=== PATIENT | male | born 1985 | race Caucasian/White ===

== ENCOUNTER 2017-11-10 08:49 | Inpatient (IN) | payer OTHER ==
[2017-11-10 09:10] VITALS: BMI 27.0
[2017-11-10] MEDS ORDERED: ACETAMINOPHEN 1000 MG/100 ML VIAL (NON FORMULARY) IVPB ONE (09:19)
[2017-11-10] MEDS ORDERED: SODIUM CHLORIDE 0.9% 1000 ML INFUS.BAG IV STA (09:19)
--- NOTE | 2017-11-10 09:38 | PDOC ---
Attending Attestation - [facility] HPI: 11/10/17 10:26 The patient is a 32 year old male with no significant past medical history who presents to the emergency department for evaluation of fever and headache. The patient reports a 5 day history of fever (temperature not taken). The patient reports constant episodes of nausea and moderate headache for 5 days with associated eye pain. The patient describes the eye pain as a constant pressure like sensation. He also reports a 3 day history of emesis, which he describes as a yellow fluid, and mild lower abdominal pain secondary to emesis. He reports taking Tylenol with no alleviation to symptoms. The patient also notes his urine has had a coffee like appearance with a strong odor, but denies pain or burning upon urination. Today, the patient reports diffuse body aches, intermittent episodes of shortness of breath, and persistent numbness around his mouth which prompted him to visit the emergency department for further evaluation. The patient denies any rash, insect bites, or embedded ticks in the last month. The patient denies chest pain, neck pain, changes in vision, recent travel and dizziness. Denies chills, diarrhea, constipation, dysuria, frequency, urgency, and hematuria. Allergies: NKA Social history: No reported cigarette, alcohol, or drug use. - Physicial Exam PE: Vitals: Triage Vital signs reviewed General Appearance: no acute distress, well nourished well developed, Head: Atraumatic, normocephalic Eyes: Pupils equal reactive round, extraocular movement intact Nose: Nares patent bilaterally;no nasal congestion Throat: Posterior oropharynx without erythema, mucous membranes moist, Neck: Supple;No Nuchal rigidity, No meningeal signs. Chest Wall: Nontender Cardiac: Regular rate and rhythm, no murmurs, no rubs, no gallops, Lungs: Clear to auscultation bilateral, good air movement bilaterally, Abdomen: (+)suprapubic tenderness. Soft, nondistended, normal bowel sounds. Extremities: Full range of motion to all extremities, no cyanosis, clubbing, or edema Skin: Warm and dry, no rashes or lesions, no petechiae Psych: normal mood, normal affect - Medical Decision Making The patient is a 32 year old male with no significant past medical history who presents to the emergency department for evaluation of fever and headache. Plan: Labs CT Scan of Head & Stomach IV Antibiotics Medication for fever Case discussed with Dr. Simmons at 13:30. <Kacy Vasquez - Last Filed: 11/10/17 14:21> - Resident Resident Name: Juan Ni - ED Attending Attestation I have performed the following: I have examined & evaluated the patient, The case was reviewed & discussed with the resident, I agree w/resident's findings & plan, Exceptions are as noted - Medical Decision Making Patient with fever body aches 5 days no neck stiffness no meningeal signs on examination Very mild suprapubic tenderness but given unknown etiology a CT abdomen and pelvis was ordered in addition to a head CT given headaches His laboratory analysis is notable for a normal white blood cell count, thrombocytopenia, elevated LFTs and elevated INR and elevated bilirubin His CAT scan demonstrates mild splenomegaly but no other acute findings At this point differential diagnosis includes possible tickborne illness, although no exposures, viral illness such as CMV or mono or other viral illness Given thrombocytopenia and laboratory abnormalities we'll admit to medicine with Dr. Simmons infectious disease consultation for further management. <Adelfo Wray - Last Filed: 11/10/17 16:44> Attestations - Attestations Documentation prepared by Kacy Vasquez, acting as electromedical equipment repairer for Adelfo Wray MD. <Kacy Vasquez - Last Filed: 11/10/17 14:21>
[2017-11-10] MEDS ORDERED: ACETAMINOPHEN INJECTION 100 ML IVPB ONE (09:50)
--- NOTE | 2017-11-10 09:50 | PDOC ---
History of Present Illness - General Chief Complaint: SIRS, Suspected/Possible Stated Complaint: HEADACHE AND FEVER Time Seen by Provider: 11/10/17 09:20 History Source: Patient Exam Limitations: No Limitations - History of Present Illness Initial Comments: 11/10/17 09:59 32m with no pmh presents since Monday with fever, vomiting, headache, anorexia and foul-smelling urine. No sick contact, recent travel, risky sexual behavior. Denies neck pain, diarrhea. Past History - Past Medical History Allergies/Adverse Reactions: Allergies Allergy/AdvReac Type Severity Reaction Status Date / Time No Known Allergies Allergy Verified 04/26/16 10:11 Home Medications: Ambulatory Orders NK [No Known Home Medication] 04/26/16 COPD: No - Immunization History Immunization Up to Date: No (UNKNOWN) - Suicide/Smoking/Psychosocial Hx Smoking History: Never smoked Have you smoked in the past 12 months: No Information on smoking cessation initiated: No Hx Alcohol Use: Yes (SOCIAL) Drug/Substance Use Hx: No Substance Use Type: None Review of Systems - Review of Systems Able to Perform ROS?: Yes Is the patient limited Faroese proficient: Yes Constitutional: Yes: See HPI HEENTM: No: Symptoms Reported Respiratory: No: Symptoms reported Cardiac (ROS): No: Symptoms Reported ABD/GI: Yes: See HPI : Yes: Symptoms Reported, See HPI. No: Burning, Dysuria, Discharge Musculoskeletal: No: Symptoms Reported Integumentary: No: Symptoms Reported Neurological: No: Symptoms reported All Other Systems: Reviewed and Negative *Physical Exam - Vital Signs Last Vital Signs Temp Pulse Resp BP Pulse Ox 100.3 F H 118 H 18 123/78 99 11/10/17 08:57 11/10/17 08:57 11/10/17 08:57 11/10/17 08:57 11/10/17 08:57 - Physical Exam General Appearance: Yes: Nourished, Appropriately Dressed, Moderate Distress HEENT: positive: EOMI, CHEY, Normal ENT Inspection Respiratory/Chest: positive: Lungs Clear, Normal Breath Sounds. negative: Chest Tender, Respiratory Distress Cardiovascular: positive: Regular Rhythm, S1, S2, Tachycardia Gastrointestinal/Abdominal: positive: Normal Bowel Sounds, Tender (suprapubic), Soft. negative: Flat Extremity: positive: Normal Capillary Refill, Normal Inspection Integumentary: positive: Normal Color, Dry, Warm, Diaphoresis Neurologic: positive: Fully Oriented, Alert, Normal Mood/Affect, Normal Response ED Treatment Course - LABORATORY CBC & Chemistry Diagram: 11/10/17 09:30 11/10/17 09:30 Medical Decision Making - Medical Decision Making 11/10/17 10:23 Patient febrile and tachycardic, will order adult septic set. Source unknown at this time: vs GI vs Meningitis Will get Ct head due to complain headache. Low suspicion for meningitis at this time, negative neck rigidity. 11/10/17 12:56 Unknown infection source. Based on labs (increased bilirubin, low platelets) could be liver origin. Will consult infectious disease and admit. *DC/Admit/Observation/Transfer Diagnosis at time of Disposition: Fever, unknown origin, Thrombocytopenia - Discharge Dispostion Condition at time of disposition: Stable Decision to Admit order: Yes - Referrals - Patient Instructions - Post Discharge Activity
[2017-11-10 09:56] LABS: BASO % 1.1 % (0-2.0); HEMATOCRIT 37.1 % (35.4-49); LYMPH % 24.2 % (8-40); MCH 30.5 pg (25.7-33.7); MCHC 35.1 g/dl (32.0-35.9); MEAN PLT VOLUME 11.9 fl (7.5-11.1); MONO % 13.5 % (3.8-10.2); NEUT % 61.2 % (42.8-82.8); PLATELET COUNT 46 K/MM3 (134-434); RBC 4.26 M/mm3 (4.00-5.60); WHITE BLOOD COUNT 7.9 K/mm3 (4.0-10.0)
[2017-11-10 10:06] LABS: VENOUS PC02 30.3 mmHg (38-52); VENOUS PH 7.48 (7.32-7.42); VENOUS PO2 26.3 mmHg (28-48)
[2017-11-10 10:07] LABS: URINE APPEARANCE CLEAR; URINE BILIRUBIN NEGATIVE (<2.0 mg/dL); URINE COLOR AMBER; URINE GLUCOSE (UA) NEGATIVE (NEGATIVE); URINE KETONE 1+ (NEGATIVE); URINE LEUK ESTERASE NEGATIVE (NEGATIVE); URINE NITRITE NEGATIVE (NEGATIVE); URINE UROBILINOGEN 4.0 E.U/dl mg/dL (0.2-1.0)
[2017-11-10 10:08] LABS: URINE PROTEIN 2+ (NEGATIVE)
[2017-11-10 10:23] LABS: URINE MUCUS RARE
[2017-11-10 10:25] LABS: CHLORIDE 98 mmol/L (98-107); POTASSIUM 3.8 mmol/L (3.5-5.1); SODIUM 130 mmol/L (136-145)
[2017-11-10 10:26] LABS: INR 1.37 (0.82-1.09); PROTHROMBIN TIME (PATIENT) 15.5 SEC (9.7-13.0)
[2017-11-10 10:29] LABS: ACTIVATED PTT 34.2 SECONDS (26.9-34.4)
[2017-11-10 10:34] LABS: ALBUMIN 3.4 g/dl (3.4-5.0); ALK PHOS 133 U/L (45-117); BILIRUBIN,TOTAL 1.9 mg/dL (0.2-1.0); BLOOD UREA NITROGEN 8 mg/dL (7-18); CALCIUM 8.3 mg/dL (8.5-10.1); CREATININE 0.6 mg/dL (0.7-1.3); GLUCOSE,RANDOM 107 mg/dL (74-106); SGOT/AST 63 U/L (15-37); SGPT/ALT 80 U/L (12-78); TOT PROT 7.1 g/dl (6.4-8.2)
[2017-11-10] MEDS ORDERED: PIPERACILLIN/TAZOB 3.375 GM 3.375 GM in DEXTROSE 5%-WATER - 50 ML IVPB ONE (11:16)
[2017-11-10] MEDS ORDERED: PIPERACILLIN/TAZOB 3.375 GM 3.375 GM/50 ML BAG IVPB ONE (11:19)
[2017-11-10 11:48] LABS: PLATELET ESTIMATE DECREASED
[2017-11-10 12:35] LABS: ANION GAP 11 (8-16); CO2 21 mmol/L (21-32)
--- NOTE | 2017-11-10 13:52 | PN ---
Progress Note (short form) - Note Progress Note: ID 32 year old [place]ian male living in presents with 5 days fevers headaches nausea eye pain lower abd discomfort. Noted to be 104 here with low platelets and normal WBC. HE denies stiff neck rash joint pains diarrhea or exposure to persons with known illness. He has no couph. 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 He has no travel history and says only with his No other partners CT borderline splenomegaly but otherwise nothing acute. Denies other medical illness. His LFTs elevated Selected Entries 11/10/17 11/10/17 11/10/17 09:30 09:40 12:33 Temperature 103.7 F H 100 F H Pulse Rate [ 101 H Left Radial] Respiratory 20 Rate Blood Pressure 132/88 [Right Arm] O2 Sat by Pulse 99 Oximetry (%) HEENT no petechiae ?jaundinced pharynx benign Neck Supple Lung Clear Cor S1 S2 RR no murmur Abd Soft without organomegaly mild tenderness suprapubic area no rebound Skin No rash Laboratory Tests 11/10/17 11/10/17 11/10/17 09:30 09:30 09:30 WBC 7.9 D Hgb 13.0 Plt Count 46 L D Neutrophils % 61.2 Band Neutrophils % 5.1 Lymphocytes % 24.2 Monocytes % 13.5 H Monocytes % (Manual) 8 INR 1.37 H BUN Creatinine Lactic Acid AST ALT Total Protein Albumin Ur Leukocyte Esterase Negative 11/10/17 11/10/17 09:30 09:30 WBC Hgb Plt Count Neutrophils % Band Neutrophils % Lymphocytes % Monocytes % Monocytes % (Manual) INR BUN 8 D Creatinine 0.6 L Lactic Acid 1.2 AST 63 H D ALT 80 H D Total Protein 7.1 Albumin 3.4 Ur Leukocyte Esterase Assessment Symtoms seems most c/w with viral disease EBV CMV Other considerations include tick related illness HGA Lyme Babesia IF he had bacterial disease salmonella or other GNR would have to be considered Plan Panculture Empiric treatment Ceftriaxone and Doxycycline ESR CRP HIV CHEPE Hepatitis A B C serology Malaria smear (babesia) CMV EBV Ab and PCR NO LP at this time [place] [facility] Problem List - Problems (1) Elevated LFTs Code(s): R94.5 - ABNORMAL RESULTS OF LIVER FUNCTION STUDIES (2) Fever, unknown origin Code(s): R50.9 - FEVER, UNSPECIFIED (3) Thrombocytopenia Code(s): D69.6 - THROMBOCYTOPENIA, UNSPECIFIED
--- NOTE | 2017-11-10 14:03 | HP ---
CHIEF COMPLAINT: Fevers and Headache PCP: No PCP (has not seen doctors outpatient in the past) HISTORY OF PRESENT ILLNESS: 32 y/o M with no PMH (has no medical follow up) presents to ER for 5 day history of nausea, vomiting (non-bloody), headache, subjective fevers, generalized weakness. This is the first time he has had these symptoms. His headache is around the whole of his head, denies neck stiffness, photophobia. Symptoms have remained the same sicne Monday. He has been vomiting 2-3 times per day. He tried taking advil and tylenol over this time with no relief. He also notes incomplete bladder emptying, foul-smelling urine over this time, mild lower abd pain. He has some L flank pain when he coughs. He also has yellowing of his eyes over the last 5 days. He denies recent travel, sick contacts, recent bleeding, CP, SOB, blood in stool, blood in urine, neck stiffness, photophobia, rash, working outdoors, tick bites, penile discharge. He states he is in a monogamous relationship with his . Pt came from [place] 14 years ago. Works as [employer]. Lives at home with and his 1 child (5 y/ o) ER course was notable for: (1) zosyn (2) Head CT, abd/pelvis CT, CXR (3) Recent Travel: denies PAST MEDICAL HISTORY: no medical hx PAST SURGICAL HISTORY: no surgical hx Social History: Smoking:denies Alcohol: 1-2 beers per week Drugs: denies Family History: states family has no medical problems Allergies No Known Allergies Allergy (Verified 04/26/16 10:11) HOME MEDICATIONS: Home Medications Medication Instructions Recorded NK [No Known Home Medication] 04/26/16 REVIEW OF SYSTEMS CONSTITUTIONAL: +fever, generalized weakenss HEENT: Absent: throat pain, visual changes, photophobia CARDIOVASCULAR: Absent: chest pain, peripheral edema RESPIRATORY: Absent: cough, shortness of breath, dyspnea with exertion GASTROINTESTINAL: +abd pain, nausea, vomiting Absent: diarrhea, constipation, melena, hematochezia GENITOURINARY: +incomplete emptying, foul-smelling urine, mild dysuria Absent: penile discharge SKIN: Absent: rash HEMATOLOGIC/IMMUNOLOGIC: Absent: easy bleeding, NEUROLOGIC: +headache PHYSICAL EXAMINATION Vital Signs - 24 hr 11/10/17 11/10/17 11/10/17 08:57 09:30 09:40 Temperature 100.3 F H 103.7 F H Pulse Rate 118 H Pulse Rate [ 101 H Left Radial] Respiratory 18 20 Rate Blood Pressure 123/78 Blood Pressure 132/88 [Right Arm] O2 Sat by Pulse 99 99 Oximetry (%) 11/10/17 11/10/17 11/10/17 10:05 10:25 12:33 Temperature 100 F H Pulse Rate Pulse Rate [ 108 H 99 H Left Radial] Respiratory 18 18 Rate Blood Pressure Blood Pressure 125/76 114/71 [Right Arm] O2 Sat by Pulse 99 96 Oximetry (%) GENERAL: Awake, alert, and fully oriented, in no acute distress. Warm to touch. HEAD: Normal with no signs of trauma. EYES: Pupils equal, round and reactive to light, extraocular movements intact, scleral icterus EARS, NOSE, THROAT: Ears normal, nares patent, oropharynx clear without exudates. NECK: Normal range of motion, supple without lymphadenopathy, or masses. LUNGS: Decreased breath sounds at bases otherwise CTA HEART: Regular rate and rhythm, normal S1 and S2 without murmur, rub or gallop. ABDOMEN: Mild suprapubic pain. No hepatosplenomegaly. Normoactive BS. MUSCULOSKELETAL: Normal range of motion at all joints. No CVA tenderness. LOWER EXTREMITIES: 2+ pulses, warm, well-perfused. No peripheral edema. NEUROLOGICAL: Cranial nerves II-XII grossly intact. Normal speech. Gait not observed. PSYCHIATRIC: Cooperative. Good eye contact. Appropriate mood and affect. SKIN: Warm, dry, no rash. Laboratory Results - last 24 hr 11/10/17 11/10/17 11/10/17 09:30 09:30 09:30 WBC 7.9 D RBC 4.26 Hgb 13.0 Hct 37.1 MCV 87.0 MCH 30.5 MCHC 35.1 RDW 14.0 Plt Count 46 L D MPV 11.9 H D Absolute Neuts (auto) 4.8 Neutrophils % 61.2 Neutrophils % (Manual) 61.6 Band Neutrophils % 5.1 Lymphocytes % 24.2 Lymphocytes % (Manual) 13.1 Monocytes % 13.5 H Monocytes % (Manual) 8 Eosinophils % 0.0 D Eosinophils % (Manual) 0.0 Basophils % 1.1 Basophils % (Manual) 0.0 Myelocytes % (Man) 0 Promyelocytes % (Man) 0 Blast Cells % (Manual) 0 Nucleated RBC % 0 Metamyelocytes 0 Platelet Estimate Decreased PT with INR 15.50 H INR 1.37 H PTT (Actin FS) 34.2 VBG pH POC VBG pCO2 POC VBG pO2 Mixed VBG HCO3 Sodium Potassium Chloride Carbon Dioxide Anion Gap BUN Creatinine Creat Clearance w eGFR Random Glucose Lactic Acid Calcium Total Bilirubin AST ALT Alkaline Phosphatase Troponin I Total Protein Albumin Urine Color Fang Urine Appearance Clear Urine pH 6.0 Ur Specific [place] 1.019 Urine Protein 2+ H Urine Glucose (UA) Negative Urine Ketones 1+ H Urine Blood 1+ H Urine Nitrite Negative Urine Bilirubin Negative Urine Urobilinogen 4.0 e.u/dl Ur Leukocyte Esterase Negative Urine WBC (Auto) 3 Urine RBC (Auto) 3 Urine Mucus Rare 11/10/17 11/10/17 11/10/17 09:30 09:30 09:30 WBC RBC Hgb Hct MCV MCH MCHC RDW Plt Count MPV Absolute Neuts (auto) Neutrophils % Neutrophils % (Manual) Band Neutrophils % Lymphocytes % Lymphocytes % (Manual) Monocytes % Monocytes % (Manual) Eosinophils % Eosinophils % (Manual) Basophils % Basophils % (Manual) Myelocytes % (Man) Promyelocytes % (Man) Blast Cells % (Manual) Nucleated RBC % Metamyelocytes Platelet Estimate PT with INR INR PTT (Actin FS) VBG pH POC VBG pCO2 POC VBG pO2 Mixed VBG HCO3 Sodium 130 L Potassium 3.8 Chloride 98 Carbon Dioxide 21 Anion Gap 11 BUN 8 D Creatinine 0.6 L Creat Clearance w eGFR > 60 Random Glucose 107 H D Lactic Acid 1.2 Calcium 8.3 L Total Bilirubin 1.9 H D AST 63 H D ALT 80 H D Alkaline Phosphatase 133 H D Troponin I < 0.02 Total Protein 7.1 Albumin 3.4 Urine Color Urine Appearance Urine pH Ur Specific [place] Urine Protein Urine Glucose (UA) Urine Ketones Urine Blood Urine Nitrite Urine Bilirubin Urine Urobilinogen Ur Leukocyte Esterase Urine WBC (Auto) Urine RBC (Auto) Urine Mucus 11/10/17 09:56 WBC RBC Hgb Hct MCV MCH MCHC RDW Plt Count MPV Absolute Neuts (auto) Neutrophils % Neutrophils % (Manual) Band Neutrophils % Lymphocytes % Lymphocytes % (Manual) Monocytes % Monocytes % (Manual) Eosinophils % Eosinophils % (Manual) Basophils % Basophils % (Manual) Myelocytes % (Man) Promyelocytes % (Man) Blast Cells % (Manual) Nucleated RBC % Metamyelocytes Platelet Estimate PT with INR INR PTT (Actin FS) VBG pH 7.48 H POC VBG pCO2 30.3 L POC VBG pO2 26.3 L Mixed VBG HCO3 22.5 Sodium Potassium Chloride Carbon Dioxide Anion Gap BUN Creatinine Creat Clearance w eGFR Random Glucose Lactic Acid Calcium Total Bilirubin AST ALT Alkaline Phosphatase Troponin I Total Protein Albumin Urine Color Urine Appearance Urine pH Ur Specific [place] Urine Protein Urine Glucose (UA) Urine Ketones Urine Blood Urine Nitrite Urine Bilirubin Urine Urobilinogen Ur Leukocyte Esterase Urine WBC (Auto) Urine RBC (Auto) Urine Mucus Imaging: CXR: No acute patholgy Head CT: negative Abd/Pelvis CT: Bibasilar atelectasis; Borderline splenomegaly; Bladder distension; No acute pathology EKG: No change vs EKG in 2016. No ST segment changes. Sinus Tachycardia @ 105 bpm. QTc 422 ms ASSESSMENT/PLAN: 32 y/o M with no PMH (has no medical follow up) presents to ER for 5 day history of nausea, vomiting (non-bloody), headache, subjective fevers, generalized weakness. Admitted for further work up and management. -Fever, headache in setting of thrombocytopenia and elevated LFTs -SIRS 2/4 + (temp and tachy) w/unclear source of infection, f/u BCx, UCx, flu neg -likely viral in etiology -Abx as per ID: ceftriaxone 2g and doxy 100 mg q12h -ID on board -Tylenol PRN -Monitor CBC, LFTs, platelets -Check: ESR, CRP, HIV, CHEPE, Hepatitis A B C serology, Malaria/babesia smear, Babesia AB, CMV/EBV Ab and PCR, Lyme AB HGA serology PCR and AB, monoscreen, Utox -NS @ 75 ml/hr -DVT ppx -SCDs, EAM -no heparin products with thrombocytopenia -FEN -NS @ 75 ml/hr -Monitor electrolytes. Monitor sodium, hyponatremia likely seconadry to vomiting -Regular diet -Dispo: Admit to m/s Visit type - Emergency Visit Emergency Visit: Yes Care time: The patient presented to the Emergency Department on the above date and was hospitalized for further evaluation of their emergent condition. - New Patient This patient is new to me today: Yes Date on this admission: 11/10/17 - Critical Care Critical Care patient: No Hospitalist Screening - Colonoscopy Questionnaire Colonoscopy Questionnaire: Colonoscopy Questionnaire - Patient: 50 - 75 years old and never had a screening colonoscopy: Unknown History of colon or rectal polyps, or CA: Unknown History of IBD, Crohn's disease or UC: Unknown History of abdominal radiation therapy as a child: Unknown - Relative: 1 with colon or rectal CA, or polyps at age 60 or younger: Unknown Colon or rectal CA diagnosed at age 45 or younger: Unknown Multiple relatives with colon or rectal CA: Unknown - Outcome: Screening Result: Negative Screen
[2017-11-10] MEDS ORDERED: DOXYCYCLINE HYCLATE 100 MG VIAL ONE (14:27)
[2017-11-10] MEDS ORDERED: CEFTRIAXONE 2 GM/100 ML BAG IVPB ONE (14:27)
[2017-11-10] MEDS: CEFTRIAXONE 2 GM in DEXTROSE 5%-WATER 100 ML IVPB SCH (14:32)
[2017-11-10] MEDS: DOXYCYCLINE INJECTION 100 MG in DEXTROSE 5%-WATER - 100 ML IVPB SCH (14:44)
[2017-11-10] MEDS: SODIUM CHLORIDE 1,000 ML IV SCH (15:42)
[2017-11-10] MEDS: ACETAMINOPHEN 325 MG TABLET (FP) PO PRN ×2 (16:53→21:33)
[2017-11-10] MEDS ORDERED: FAMOTIDINE 20 MG/50 ML IVPB 20 MG/50 ML MG IVPB ONE (17:52)
[2017-11-10] MEDS ORDERED: DEXAMETHASONE SOD PHOSPHATE 20 MG/5 ML VIAL IVPB ONE (17:52)
--- NOTE | 2017-11-10 17:55 | PN ---
Teaching Attending Note Name of Resident: Enrique Dunn ATTENDING PHYSICIAN STATEMENT I saw and evaluated the patient. I reviewed the resident's note and discussed the case with the resident. I agree with the resident's findings and plan as documented. SUBJECTIVE:32yo M with no PMH but has not seen MD in 20 years presenting with JIMÉNEZ and subjective fevers since monday. states that he was in normal state of health previusly. started with total tension JIMÉNEZ. not related to movement or time of day. then started having subjective fevers the past few days and developed nausea and vomiting. no other sick contacts in the home. denies CP, SOB, cough, C/D. no rashes. no photophobia or blurred vision. no neck stiffness. no recent travel. has not been to [place] in over 5 years. denies drug use or tick exposure OBJECTIVE: Last Vital Signs Temp Pulse Resp BP Pulse Ox 103.2 F H 105 H 18 109/77 99 11/10/17 17:11/10/17 17:11/10/17 17:11/10/17 17:11/10/17 14:30 General NAD, very warm HEENT EOMI, PERRL, no photophobia. pharynx without erythema or exudate. + yellowing of the frenulum, neck supple. neg brudniski sign. no LN CV S1 S2 tachy Lungs CTA B/L no wheezing/rales/rhonchi Abdomen soft NT/ND no hepatomegaly. no fluid wave Extremities no edema, no rashes ASSESSMENT AND PLAN: 32yo M with no PMH presenting with JIMÉNEZ, subjective fevers and Nausea and vomiting 1. Fever of unknown origin. suspicion for vector related infection- Tm 103.7 with tachycardia. and low platelets. full work up sent for ESR/CRP/EBV/mono/CMV/ lyme/Babesia/malaria smear. low concern for menningitis with lack of signs. check Utox and HIV. ID consulted and empiricially started on doxy/ceftriaxone. f /u cx and lab workup 2. JIMÉNEZ- likely due to fever and above mentioned infection. will give cocktail of dex 4mg IV, benadryl 25mg and pepcid IV. Head CT is negative. will f/u for improvement 3. Transaminitis- concern for blood dyscrasia viral infection. check above mentioned studies. hepatitis panel. CT abdomen is negative for acute pathology 4. Thrombocytosis- likely related to above. will trend. will hold hep at this time. no sign of bleeding. no indication for platelet transfusion 5. DVT ppx- SCD. hold heparin
[2017-11-10] MEDS ORDERED: DEXAMETHASONE SOD PHOSPHATE 4 MG/1 ML VIAL IVPUSH ONE (18:15)
[2017-11-10 22:25] LABS: URINE APPEARANCE CLEAR; URINE BILIRUBIN NEGATIVE (<2.0 mg/dL); URINE COLOR LTYELLOW; URINE GLUCOSE (UA) NEGATIVE (NEGATIVE); URINE KETONE TRACE (NEGATIVE); URINE PROTEIN NEGATIVE (NEGATIVE)
[2017-11-10 22:26] LABS: URINE LEUK ESTERASE NEGATIVE (NEGATIVE); URINE NITRITE NEGATIVE (NEGATIVE); URINE UROBILINOGEN 4.0 E.U/dl mg/dL (0.2-1.0)
[2017-11-10 22:34] LABS: COCAINE, UR NEGATIVE ng/ml (CUTOFF=300); METHADONE, UR NEGATIVE ng/ml (CUTOFF=300); OPIATES, URI NEGATIVE ng/ml (CUTOFF=300); PHENCYCLIDINE,URINE NEGATIVE ng/ml (CUTOFF=25); URINE AMPHETAMINES NEGATIVE ng/ml (CUTOFF=500); URINE BARBITURATES NEGATIVE ng/ml (CUTOFF=200); URINE BENZODIAZEPINES NEGATIVE ng/ml (CUTOFF=200)
[2017-11-11] MEDS: DOXYCYCLINE INJECTION 100 MG in DEXTROSE 5%-WATER - 100 ML IVPB SCH ×2 (01:21→14:42)
[2017-11-11] MEDS: ACETAMINOPHEN 325 MG TABLET (FP) PO PRN ×3 (01:37→16:33)
[2017-11-11] MEDS: SODIUM CHLORIDE 1,000 ML IV SCH ×3 (06:07→23:45)
[2017-11-11 07:37] LABS: BASO % 0.3 % (0-2.0); HEMATOCRIT 36.3 % (35.4-49); HEMOGLOBIN 12.5 GM/dL (11.7-16.9); LYMPH % 18.3 % (8-40); MCH 30.3 pg (25.7-33.7); MCHC 34.3 g/dl (32.0-35.9); MEAN CELL VOLUME 88.3 fl (80-96); MEAN PLT VOLUME 11.1 fl (7.5-11.1); MONO % 10.1 % (3.8-10.2); NEUT % 71.3 % (42.8-82.8); PLATELET COUNT 38 K/MM3 (134-434); RBC 4.11 M/mm3 (4.00-5.60); RDW 14.1 % (11.9-15.9); WHITE BLOOD COUNT 6.8 K/mm3 (4.0-10.0)
[2017-11-11 07:51] LABS: INR 1.28 (0.82-1.09); PROTHROMBIN TIME (PATIENT) 14.5 SEC (9.7-13.0)
[2017-11-11 07:54] LABS: ACTIVATED PTT 32.2 SECONDS (25.2-36.5)
[2017-11-11 08:11] LABS: CHLORIDE 105 mmol/L (98-107); POTASSIUM 4.2 mmol/L (3.5-5.1); SODIUM 137 mmol/L (136-145)
[2017-11-11 08:17] LABS: ALBUMIN 2.9 g/dl (3.4-5.0); ALK PHOS 123 U/L (45-117); ANION GAP 7 (8-16); BILIRUBIN,TOTAL 1.4 mg/dL (0.2-1.0); BLOOD UREA NITROGEN 7 mg/dL (7-18); CALCIUM 8.1 mg/dL (8.5-10.1); CO2 25 mmol/L (21-32); CREATININE 0.5 mg/dL (0.7-1.3); GLUCOSE,RANDOM 134 mg/dL (74-106); MAGNESIUM 2.4 mg/dL (1.8-2.4); SGOT/AST 64 U/L (15-37); SGPT/ALT 77 U/L (12-78); TOT PROT 6.5 g/dl (6.4-8.2)
--- NOTE | 2017-11-11 08:50 | PN ---
Progress Note (short form) - Note Progress Note: c/o JIMÉNEZ, fever, chills. Denies Cp, SOB, cough, N/V/C/D. unable to assoc if JIMÉNEZ comes on with fevers or unrelated. Current Medications Generic Name Dose Route Start Last Admin Trade Name [place]at PRN Reason Stop Dose Admin Acetaminophen 650 mg 11/10/17 14:52 11/11/17 01:37 Tylenol - PO 650 mg Q4H PRN Administration FEVER Ceftriaxone Sodium 2 gm/ 100 mls @ 100 mls/hr 11/10/17 14:15 11/10/17 14:32 Dextrose IVPB 100 mls/hr DAILY REX Administration Protocol Doxycycline Hyclate 100 mg/ 100 mls @ 50 mls/hr 11/10/17 14:15 11/11/17 01:21 Dextrose IVPB 50 mls/hr Q12H REX Administration Sodium Chloride 1,000 mls @ 75 mls/hr 11/10/17 15:00 11/11/17 06:07 Normal Saline - IV 75 mls/hr ASDIR REX Administration Last Vital Signs Temp Pulse Resp BP Pulse Ox 98.5 F 82 18 103/55 97 11/11/17 05:00 11/11/17 05:00 11/11/17 05:00 11/11/17 05:00 11/10/17 21:00 General NAD, +chills HEENT EOMI, PERRL, CV S1 S2 tachy Lungs CTA B/L no wheezing/rales/rhonchi Abdomen soft NT/ND no hepatomegaly. Extremities no edema, no rashes CBCD WBC 6.8 K/mm3 (4.0-10.0) 11/11/17 06:15 RBC 4.11 M/mm3 (4.00-5.60) 11/11/17 06:15 Hgb 12.5 GM/dL (11.7-16.9) 11/11/17 06:15 Hct 36.3 % (35.4-49) 11/11/17 06:15 MCV 88.3 fl (80-96) 11/11/17 06:15 MCHC 34.3 g/dl (32.0-35.9) 11/11/17 06:15 RDW 14.1 % (11.9-15.9) 06/16/18 06:15 Plt Count 38 K/MM3 (134-434) L 11/11/17 06:15 MPV 11.1 fl (7.5-11.1) 11/11/17 06:15 CMP Sodium 137 mmol/L (136-145) 11/11/17 06:15 Potassium 4.2 mmol/L (3.5-5.1) 11/11/17 06:15 Chloride 105 mmol/L (98-107) 11/11/17 06:15 Carbon Dioxide 25 mmol/L (21-32) 11/11/17 06:15 Anion Gap 7 (8-16) L 11/11/17 06:15 BUN 7 mg/dL (7-18) 11/11/17 06:15 Creatinine 0.5 mg/dL (0.7-1.3) L 11/11/17 06:15 Creat Clearance w eGFR > 60 (>60) 11/11/17 06:15 Calcium 8.1 mg/dL (8.5-10.1) L 11/11/17 06:15 Total Bilirubin 1.4 mg/dL (0.2-1.0) H D 11/11/17 06:15 AST 64 U/L (15-37) H 11/11/17 06:15 ALT 77 U/L (12-78) 11/11/17 06:15 Alkaline Phosphatase 123 U/L (45-117) H 11/11/17 06:15 Total Protein 6.5 g/dl (6.4-8.2) 11/11/17 06:15 Albumin 2.9 g/dl (3.4-5.0) L 11/11/17 06:15 Microbiology 11/10/17 09:46 Nasopharyngeal Swab Influenza Types A,B Antigen - Final 11/10/17 09:46 Nasopharyngeal Swab - Final ASSESSMENT AND PLAN: 32yo M with no PMH presenting with JIMÉNEZ, subjective fevers and Nausea and vomiting 1. Fever of unknown origin- Tm 103.2 with tachycardia. and low platelets. utox and HIV negative. full work up sent for ESR/CRP/EBV/mono/CMV/lyme/Babesia/ malaria smear. ID consulted. on doxy/ceftriaxone day 2. cont IVF. f/u cx and lab workup 2. JIMÉNEZ- likely due to fever and above mentioned infection. some imporvement with medications yesterday. JIMÉNEZ seem to occur with fevers. will cont with tyelnol. 3. Transaminitis- related to vector infection. hepatitis panel pending. trend 4. 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 concern for hemolysis. now trending down. no signs of bleeding. will consult hematology. 5. DVT ppx- SCD. hold heparin
[2017-11-11] MEDS ORDERED: DEXTROSE 5%-WATER 100 ML IVPB ONE (08:51)
[2017-11-11] MEDS: CEFTRIAXONE 2 GM in DEXTROSE 5%-WATER 100 ML IVPB SCH (09:00)
[2017-11-11 10:44] LABS: PLATELET ESTIMATE DECREASED
--- NOTE | 2017-11-11 12:38 | PN ---
Progress Note (short form) - Note Progress Note: continued fevers feels dizzy and has frontal headache with fevers only unable to eat when he has fever has now been sick with fever for 6 days started last monday bikes to work makes [employer] no diarrhea no travel-here from [place] 14 years ago no pets no one sick at home- and 5 year old no photophobia Microbiology 11/10/17 09:30 Urine - Urine Clean Catch Urine Culture - Final NO GROWTH OBTAINED 11/10/17 09:48 Blood - Peripheral Venous Blood Culture - Preliminary NO GROWTH OBTAINED AFTER 24 HOURS, INCUBATION TO CONTINUE FOR 4 DAYS. 11/10/17 09:30 Blood - Peripheral Venous Blood Culture - Preliminary NO GROWTH OBTAINED AFTER 24 HOURS, INCUBATION TO CONTINUE FOR 4 DAYS. 11/10/17 09:46 Nasopharyngeal Swab Influenza Types A,B Antigen - Final 11/10/17 09:46 Nasopharyngeal Swab - Final cultures Vital Signs Period Temp Pulse Resp BP Sys/Shah Pulse Ox Last 24 Hr 98.5 F-103.2 F 82-105 18-18 103-122/55-77 97-99 neck is supple no photophobia no thrush no pharyngitis no rash cor-rrr lungs clear abd soft,nt ext no edema CBC, BMP 11/11/17 06:15 11/11/17 06:15 cultures pending a/p FUO with thrombocytopenia continue doxycycline and ceftriaxone serologies pending stat blood smear r/o babesia hematology evaluation will d/w hospitalist
[2017-11-11] MEDS ORDERED: ATOVAQUONE 750 MG/5 ML (UNIT-DOSE PACKAGING) PO SCH (13:30)
[2017-11-11] MEDS ORDERED: ATOVAQUONE 750 MG/5 ML SUSPENSION PO SCH (13:39)
[2017-11-11 13:56] LABS: LDH 808 U/L (87-241)
[2017-11-11] MEDS ORDERED: AZITHROMYCIN IVPB 500 MG in DEXTROSE 5%-WATER - 250 ML IVPB SCH (14:00)
[2017-11-11] MEDS ORDERED: PT OWN MED DRAWER 7, Y5N ONE ×3 (14:39→20:33)
--- NOTE | 2017-11-11 15:40 | CONSULT ---
Consult Consult Specialty:: Hematology - History of Present Illness History of Present Illness: 32m with no pmh presents since Monday with fever, vomiting, headache, anorexia. Hematology consulted for thrombocytopenia - History Source History Provided By: Patient, Family Member, Medical Record - Alcohol/Substance Use Hx Alcohol Use: Yes (SOCIAL) - Smoking History Smoking history: Never smoked Have you smoked in the past 12 months: No Home Medications - Allergies Allergies/Adverse Reactions: Allergies Allergy/AdvReac Type Severity Reaction Status Date / Time No Known Allergies Allergy Verified 04/26/16 10:11 - Home Medications Home Medications: Ambulatory Orders NK [No Known Home Medication] 04/26/16 Review of Systems Findings/Remarks: severe headache myalgias Feels "hot" feels nauseous. Physical Exam Vital Signs: Vital Signs Temperature 103 F H 11/11/17 12:19 Pulse Rate 114 H 11/11/17 09:00 Respiratory Rate 18 11/11/17 09:00 Blood Pressure 149/93 11/11/17 09:00 O2 Sat by Pulse Oximetry (%) 97 11/10/17 21:00 Constitutional: Yes: Other (febrile, looks fatigued) Eyes: Yes: Conjunctiva Clear HENT: Yes: Atraumatic, Normocephalic Neck: Yes: Supple Cardiovascular: Yes: Tachycardia Respiratory: Yes: Regular, CTA Bilaterally Gastrointestinal: Yes: Soft Musculoskeletal: Yes: WNL Edema: No Neurological: Yes: Alert Labs: CBC, BMP 11/11/17 06:15 11/11/17 06:15 Imaging - Results Cat Scan: Report Reviewed Assessment/Plan 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 Parasitic load of 1.6% daily parasitic smear. Underlying cause Rx per ID DAILY hemolytic paremeters/monitor espo status (CBC/LDH/LFTs/BMP) LFTs trending down. Red blood cell exchange transfusion for patients with babesiosis who have high- grade parasitemia >10% , severe hemolysis (hemoglobin <10 g/dL), or pulmonary, liver, or renal impairment. Monitor closely. To be transferred to tele for closer monitoring.
--- NOTE | 2017-11-11 17:44 | EKG ---
Test Reason : Blood Pressure : / mmHG Vent. Rate : 108 BPM Atrial Rate : 108 BPM P-R Int : 128 ms QRS Dur : 080 ms QT Int : 306 ms P-R-T Axes : 057 045 030 degrees QTc Int : 410 ms SINUS TACHYCARDIA OTHERWISE NORMAL ECG WHEN COMPARED WITH ECG OF 10-NOV-2017 09:58, NO SIGNIFICANT CHANGE WAS FOUND Confirmed by SOFIA REESE MD ([id number]) on 11/11/2017 5:44:00 PM Referred By: Nani HARGROVE Confirmed By:SOFIA REESE MD
--- NOTE | 2017-11-11 17:51 | EKG ---
Test Reason : Blood Pressure : / mmHG Vent. Rate : 105 BPM Atrial Rate : 105 BPM P-R Int : 134 ms QRS Dur : 080 ms QT Int : 320 ms P-R-T Axes : 052 038 018 degrees QTc Int : 422 ms SINUS TACHYCARDIA OTHERWISE NORMAL ECG WHEN COMPARED WITH ECG OF 26-APR-2016 10:06, VENT. RATE HAS INCREASED BY 39 BPM NONSPECIFIC T WAVE ABNORMALITY NOW EVIDENT IN INFERIOR LEADS Confirmed by MARY ANN KWOK, SOFIA ([id number]) on 11/11/2017 5:51:06 PM Referred By: Confirmed By:SOFIA REESE MD
[2017-11-11] MEDS ORDERED: IBUPROFEN 400 MG TABLET (FP) PO ONE (18:45)
[2017-11-12] MEDS: DOXYCYCLINE INJECTION 100 MG in DEXTROSE 5%-WATER - 100 ML IVPB SCH ×2 (01:35→13:28)
[2017-11-12] MEDS: ACETAMINOPHEN 325 MG TABLET (FP) PO PRN ×2 (05:42→11:09)
[2017-11-12 07:28] LABS: BASO % 0.5 % (0-2.0); EOS % 0.1 % (0-4.5); HEMATOCRIT 35.4 % (35.4-49); HEMOGLOBIN 12.4 GM/dL (11.7-16.9); LYMPH % 30.5 % (8-40); MCH 30.4 pg (25.7-33.7); MCHC 34.9 g/dl (32.0-35.9); MEAN CELL VOLUME 86.9 fl (80-96); MEAN PLT VOLUME 12.3 fl (7.5-11.1); MONO % 9.9 % (3.8-10.2); PLATELET COUNT 41 K/MM3 (134-434); RBC 4.07 M/mm3 (4.00-5.60); RDW 14.1 % (11.9-15.9); WHITE BLOOD COUNT 6.6 K/mm3 (4.0-10.0)
[2017-11-12] MEDS ORDERED: AZITHROMYCIN IVPB 500 MG in DEXTROSE 5%-WATER - 250 ML IVPB SCH ×2 (07:45→10:00)
[2017-11-12 08:01] LABS: CHLORIDE 100 mmol/L (98-107); POTASSIUM 3.9 mmol/L (3.5-5.1); SODIUM 134 mmol/L (136-145)
[2017-11-12 08:23] LABS: ALBUMIN 2.8 g/dl (3.4-5.0); ALK PHOS 127 U/L (45-117); ANION GAP 9 (8-16); BILIRUBIN,TOTAL 1.7 mg/dL (0.2-1.0); BLOOD UREA NITROGEN 8 mg/dL (7-18); CALCIUM 7.9 mg/dL (8.5-10.1); CO2 25 mmol/L (21-32); CREATININE 0.5 mg/dL (0.7-1.3); GLUCOSE,RANDOM 109 mg/dL (74-106); SGOT/AST 95 U/L (15-37); SGPT/ALT 98 U/L (12-78); TOT PROT 6.7 g/dl (6.4-8.2)
[2017-11-12 08:26] LABS: LDH 1055 U/L (87-241)
[2017-11-12 09:11] LABS: ACANTHOCYTES 0; ANISOCYTOSIS 0; HELMET CELLS 0; HOWELL-JOLLY BODIES 0; MACROCYTOSIS 0; OVALOCYTE 0; PLATELET ESTIMATE DECREASED; ROULEAU 0; SICKELED CELLS 0; TARGET CELLS 0; TEAR DROP CELLS 0; TOXIC GRANULATION 0
[2017-11-12] MEDS: ATOVAQUONE 750 MG/5 ML SUSPENSION PO SCH ×2 (09:31→17:07)
--- NOTE | 2017-11-12 10:25 | PN ---
Progress Note (short form) - Note Progress Note: feels a bit better today, fevers improved still some headache Vital Signs Period Temp Pulse Resp BP Sys/Shah Pulse Ox Last 24 Hr 98.5 F-103.1 F 74-116 14-22 112-140/61-88 96 cor-rrr lungs clear abd soft,nt ext no edema no rash CBC, BMP 11/12/17 06:00 11/12/17 06:00 Laboratory Tests 11/12/17 06:00 LD Total 1055 H Microbiology 11/10/17 09:48 Blood - Peripheral Venous Blood Culture - Preliminary NO GROWTH OBTAINED AFTER 48 HOURS, INCUBATION TO CONTINUE FOR 3 DAYS. 11/10/17 09:30 Blood - Peripheral Venous Blood Culture - Preliminary NO GROWTH OBTAINED AFTER 48 HOURS, INCUBATION TO CONTINUE FOR 3 DAYS. 11/11/17 06:15 Blood - Peripheral Venous Blood Parasites Smear - Final Babesia Species 11/10/17 09:30 Urine - Urine Clean Catch Urine Culture - Final NO GROWTH OBTAINED 11/10/17 09:46 Nasopharyngeal Swab Influenza Types A,B Antigen - Final 11/10/17 09:46 Nasopharyngeal Swab - Final a/p Babesia -started on zithromax and atovaquone yesterday repeat smear pending continue doxycycline as well to cover for other tick related illness interestingly besides biking daily through some [place] on the way to work, he denies all other activities that predispose to tick exposure! continue present meds
--- NOTE | 2017-11-12 10:45 | PN ---
Progress Note (short form) - Note Progress Note: seen and examined. slight improvement than yesterday. headache present better than yesterday Constitutional: Yes: Other (febrile, looks fatigued) Eyes: Yes: Conjunctiva Clear HENT: Yes: Atraumatic, Normocephalic Neck: Yes: Supple Cardiovascular: Yes: Tachycardia Respiratory: Yes: Regular, CTA Bilaterally Gastrointestinal: Yes: Soft Musculoskeletal: Yes: WNL Edema: No Neurological: Yes: Alert Labs: Last Vital Signs Temp Pulse Resp BP Pulse Ox 98.5 F 88 14 116/64 96 11/12/17 08:44 11/12/17 08:44 11/12/17 08:44 11/12/17 08:44 11/11/17 21:00 CBC, BMP 11/12/17 06:00 11/12/17 06:00 Current Medications Generic Name Dose Route Start Last Admin Trade Name Freq PRN Reason Stop Dose Admin Acetaminophen 650 mg 11/11/17 23:37 11/12/17 05:42 Tylenol - PO 650 mg Q4H PRN Administration FEVER Atovaquone 750 mg 11/12/17 08:00 11/12/17 09:31 Mepron - PO 750 mg BIDWM REX Administration Doxycycline Hyclate 100 mg/ 100 mls @ 50 mls/hr 11/12/17 02:15 11/12/17 01:35 Dextrose IVPB 50 mls/hr Q12H REX Administration Sodium Chloride 1,000 mls @ 75 mls/hr 11/11/17 23:37 11/11/17 23:45 Normal Saline - IV 75 mls/hr ASDIR REX Administration Azithromycin 500 mg/ Dextrose 250 mls @ 250 mls/hr 11/12/17 17:00 IVPB Q24H REX babesiosis: f/u today Parasitic load abx per ID CBC Normal Hgb Platelets slight improvement Abn LFTs component of hemolysis?, LDH inc, but with nl Hgb ?medication related Mild tachypnea on exam check CXR. c
--- NOTE | 2017-11-12 12:42 | PN ---
Progress Note (short form) - Note Progress Note: feeling much better today. states he had slight JIMÉNEZ this AM but none since. no more fever or chills. Denies CP, SOB< fever, chills, N/V/C/D Current Medications Generic Name Dose Route Start Last Admin Trade Name Freq PRN Reason Stop Dose Admin Acetaminophen 650 mg 11/11/17 23:37 11/12/17 11:09 Tylenol - PO 650 mg Q4H PRN Administration FEVER Atovaquone 750 mg 11/12/17 08:00 11/12/17 09:31 Mepron - PO 750 mg BIDWM REX Administration Doxycycline Hyclate 100 mg/ 100 mls @ 50 mls/hr 11/12/17 02:15 11/12/17 01:35 Dextrose IVPB 50 mls/hr Q12H REX Administration Sodium Chloride 1,000 mls @ 75 mls/hr 11/11/17 23:37 11/11/17 23:45 Normal Saline - IV 75 mls/hr ASDIR REX Administration Azithromycin 500 mg/ Dextrose 250 mls @ 250 mls/hr 11/12/17 17:00 IVPB Q24H REX Last Vital Signs Temp Pulse Resp BP Pulse Ox 100.8 F H 118 H 14 116/64 96 11/12/17 11:10 11/12/17 11:10 11/12/17 08:44 11/12/17 08:44 11/11/17 21:00 General NAD, CV S1 S2 tachy Lungs CTA B/L no wheezing/rales/rhonchi Abdomen soft NT/ND no hepatomegaly. Extremities no edema, no rashes CBCD WBC 6.6 K/mm3 (4.0-10.0) 11/12/17 06:00 RBC 4.07 M/mm3 (4.00-5.60) 11/12/17 06:00 Hgb 12.4 GM/dL (11.7-16.9) 11/12/17 06:00 Hct 35.4 % (35.4-49) 11/12/17 06:00 MCV 86.9 fl (80-96) 11/12/17 06:00 MCHC 34.9 g/dl (32.0-35.9) 11/12/17 06:00 RDW 14.1 % (11.9-15.9) 11/12/17 06:00 Plt Count 41 K/MM3 (134-434) L 11/12/17 06:00 MPV 12.3 fl (7.5-11.1) H D 11/12/17 06:00 CMP Sodium 134 mmol/L (136-145) L 11/12/17 06:00 Potassium 3.9 mmol/L (3.5-5.1) 11/12/17 06:00 Chloride 100 mmol/L (98-107) 11/12/17 06:00 Carbon Dioxide 25 mmol/L (21-32) 11/12/17 06:00 Anion Gap 9 (8-16) 11/12/17 06:00 BUN 8 mg/dL (7-18) 11/12/17 06:00 Creatinine 0.5 mg/dL (0.7-1.3) L 11/12/17 06:00 Creat Clearance w eGFR > 60 (>60) 11/12/17 06:00 Calcium 7.9 mg/dL (8.5-10.1) L 11/12/17 06:00 Total Bilirubin 1.7 mg/dL (0.2-1.0) H D 11/12/17 06:00 AST 95 U/L (15-37) H D 11/12/17 06:00 ALT 98 U/L (12-78) H D 11/12/17 06:00 Alkaline Phosphatase 127 U/L (45-117) H 11/12/17 06:00 Total Protein 6.7 g/dl (6.4-8.2) 11/12/17 06:00 Albumin 2.8 g/dl (3.4-5.0) L 11/12/17 06:00 ASSESSMENT AND PLAN: 32yo M with no PMH presenting with JIMÉNEZ, subjective fevers and Nausea and vomiting 1. sepsis due to babesiosis- Tm 103.1 but has been afebrile for 12H with low grade fever now. significant improvement. Repeat Blood smear showing decreased parasitic percentage 1.6>1.3 today. will cont to monitor. started on Azithro and Mepron day 2. will cont doxy day 3 for high likelihood for 2ndary infection. cont IVF. monitor. ID on board 2. Sinus tachycardia- in setting of fevers. will treat infection. 3. tachypnea- Hematology reported tachypnea but not seen on my exam. saturaitng well on RA. CXR showing poor inspiratory effort. no cough or respiratory complaints. order incentive spirometer. 4. JIMÉNEZ- likely due to babesiosis. now resolved. 5. hemolysis- Hgb stable. LDH and LFT trending up. will monitor for now. hematology on board 6. Transaminitis- related to vector infection. hepatitis panel pending. trend 7. 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 stable. no signs of bleeding. hematology on board 8. DVT ppx- SCD. hold heparin
[2017-11-12] MEDS ORDERED: PT OWN MED DRAWER 7, Y5N ONE (17:06)
[2017-11-12] MEDS: AZITHROMYCIN IVPB 500 MG in DEXTROSE 5%-WATER - 250 ML IVPB SCH (17:07)
[2017-11-12] MEDS ORDERED: ACETAMINOPHEN 1000 MG/100 ML VIAL (NON FORMULARY) IVPB ONE (17:51)
[2017-11-13] MEDS ORDERED: PT OWN MED DRAWER 7, Y5N ONE ×3 (01:11→17:09)
[2017-11-13] MEDS: ACETAMINOPHEN 325 MG TABLET (FP) PO PRN ×3 (01:17→15:29)
[2017-11-13] MEDS: DOXYCYCLINE INJECTION 100 MG in DEXTROSE 5%-WATER - 100 ML IVPB SCH ×2 (01:17→13:40)
[2017-11-13] MEDS: SODIUM CHLORIDE 1,000 ML IV SCH (01:17)
[2017-11-13] MEDS: ATOVAQUONE 750 MG/5 ML SUSPENSION PO SCH ×2 (08:10→17:52)
[2017-11-13 08:42] LABS: BASO % 1.8 % (0-2.0); EOS % 0.2 % (0-4.5); HEMATOCRIT 35.8 % (35.4-49); HEMOGLOBIN 12.3 GM/dL (11.7-16.9); LYMPH % 36.7 % (8-40); MCHC 34.3 g/dl (32.0-35.9); MEAN CELL VOLUME 87.4 fl (80-96); MONO % 9.6 % (3.8-10.2); NEUT % 51.7 % (42.8-82.8); PLATELET COUNT 53 K/MM3 (134-434); RDW 14.1 % (11.9-15.9); WHITE BLOOD COUNT 6.6 K/mm3 (4.0-10.0)
[2017-11-13] MEDS ORDERED: ACETAMINOPHEN 1000 MG/100 ML VIAL (NON FORMULARY) IVPB ONE (09:15)
[2017-11-13 09:31] LABS: ANION GAP 9 (8-16); BLOOD UREA NITROGEN 7 mg/dL (7-18); CALCIUM 8.2 mg/dL (8.5-10.1); CHLORIDE 97 mmol/L (98-107); CO2 26 mmol/L (21-32); CREATININE 0.5 mg/dL (0.7-1.3); GLUCOSE,RANDOM 102 mg/dL (74-106); POTASSIUM 3.7 mmol/L (3.5-5.1); SODIUM 132 mmol/L (136-145)
[2017-11-13] MEDS ORDERED: ACETAMINOPHEN 650 MG/20.3 ML ORAL SOLUTION (CUPS) PO ONE (09:45)
--- NOTE | 2017-11-13 13:18 | PN ---
Teaching Attending Note Name of Resident: Jaron Craig ATTENDING PHYSICIAN STATEMENT I saw and evaluated the patient. I reviewed the resident's note and discussed the case with the resident. I agree with the resident's findings and plan as documented. SUBJECTIVE:c/p JIMÉNEZ when he has fevers but resolves once fever dissipates. denies CP, SOB, fever, chills, rigors, N/V/C/D OBJECTIVE: Last Vital Signs Temp Pulse Resp BP Pulse Ox 101.5 F H 105 H 26 H 126/66 94 L 11/13/17 09:00 11/13/17 09:00 11/13/17 09:00 11/13/17 09:00 11/13/17 09:00 General NAD CV S1 S2 tachy Lungs CTA B/L no wheezing/rales/rhonchi ASSESSMENT AND PLAN: 32yo M with no PMH presenting with JIMÉNEZ, subjective fevers and Nausea and vomiting 1. sepsis due to babesiosis- Tm 102.9. sinus tachycardia and JIMÉNEZ related to fevers. will give low dose IVF for insensible fluid losses. will cont for now. cont azithro/mepron/doxy. ID on board. 2. Sinus tachycardia- in setting of fevers. will treat infection. 3. tachypnea- Hematology reported tachypnea but not seen on my exam. saturaitng 96% on RA. CXR showing poor inspiratory effort. no cough or respiratory complaints. order incentive spirometer. 4. JIMÉNEZ- likely due to babesiosis/fevers. now resolved. 5. hemolysis- Hgb stable. awaiting labs from this AM. hematology on board 6. Transaminitis- related to vector infection. hepatitis panel pending. trend 7. 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 stable. no signs of bleeding. hematology on board 8. DVT ppx- SCD. hold heparin
--- NOTE | 2017-11-13 13:28 | PN ---
Progress Note, Physician Chief Complaint: ID Clinically much improved since I saw him 3 days ago. His headache has subsided along with the abd discomfort and eye pains Day 2 therapy for babesiosis with or without other coinfection Mepron Doxy Azithrmycin - Current Medication List Current Medications: Active Medications Acetaminophen (Tylenol -) 650 mg PO Q4H PRN PRN Reason: FEVER Last Admin: 11/13/17 08:08 Dose: 650 mg Atovaquone (Mepron -) 750 mg PO BIDWM [facility] Last Admin: 11/13/17 08:10 Dose: 750 mg Doxycycline Hyclate 100 mg/ (Dextrose) 100 mls @ 50 mls/hr IVPB Q12H [facility] Last Admin: 11/13/17 01:17 Dose: 50 mls/hr Sodium Chloride (Normal Saline -) 1,000 mls @ 75 mls/hr IV ASDIR [facility] Last Admin: 11/13/17 01:17 Dose: 75 mls/hr Azithromycin 500 mg/ Dextrose 250 mls @ 250 mls/hr IVPB Q24H [facility] Last Admin: 11/12/17 17:07 Dose: 250 mls/hr - Objective Vital Signs: Vital Signs Temperature 101.5 F H 11/13/17 09:00 Pulse Rate 105 H 11/13/17 09:00 Respiratory Rate 26 H 11/13/17 09:00 Blood Pressure 126/66 11/13/17 09:00 O2 Sat by Pulse Oximetry (%) 94 L 11/13/17 09:00 Constitutional: Yes: Well Nourished, No Distress Eyes: Yes: WNL, Conjunctiva Clear HENT: Yes: WNL, Atraumatic Neck: Yes: WNL, Supple Cardiovascular: Yes: Regular Rate and Rhythm, Tachycardia, S1, S2 Respiratory: Yes: WNL, Regular, CTA Bilaterally, On BiPap, Rales Gastrointestinal: Yes: WNL, Normal Bowel Sounds, Soft. No: Splenomegaly, Tenderness, Tenderness, Epigastrium Edema: No Labs: CBC, BMP 11/13/17 08:20 11/13/17 08:20 INR, PTT INR 1.28 (0.82-1.09) H 11/11/17 06:15 Problem List - Problems (1) Elevated LFTs Code(s): R94.5 - ABNORMAL RESULTS OF LIVER FUNCTION STUDIES (2) Fever, unknown origin Code(s): R50.9 - FEVER, UNSPECIFIED (3) Thrombocytopenia Code(s): D69.6 - THROMBOCYTOPENIA, UNSPECIFIED Assessment/Plan Microbiology 11/12/17 06:00 Blood - Peripheral Venous Blood Parasites Smear - Final Babesia Species 11/11/17 06:15 Blood - Peripheral Venous Blood Parasites Smear - Final Babesia Species Laboratory Tests 11/11/17 11/11/17 11/12/17 06:15 06:15 06:00 WBC Hgb Neutrophils % Monocytes % Eosinophils % Basophils % BUN Creatinine Creat Clearance w eGFR Total Bilirubin 1.7 H D Alkaline Phosphatase 127 H LD Total 1055 H C-Reactive Protein 16.0 H Babesia microti IgG Ab Pending Babesia microti IgM Ab Pending Lyme Antibody Value Pending Lyme IgM Quantitation Pending 11/13/17 11/13/17 08:20 08:20 WBC 6.6 Hgb 12.3 Neutrophils % 51.7 Monocytes % 9.6 Eosinophils % 0.2 D Basophils % 1.8 D BUN 7 Creatinine 0.5 L Creat Clearance w eGFR > 60 Total Bilirubin Alkaline Phosphatase LD Total C-Reactive Protein Babesia microti IgG Ab Babesia microti IgM Ab Lyme Antibody Value Lyme IgM Quantitation Assessment Babesiosis with coinfection HGA Lyme considered Elevated LDH c/s hemolysis Plan HGA serology Await today smear Same antibiotics Not concerned abut fever today given only 2 days of treatment and subjective improvement stable HCT and platlets edmond up [place] KWOK
[2017-11-13 14:16] LABS: HBSAG SCREEN Negative (Negative); HEP A AB, IGM Negative (Negative); HEP B CORE AB, TOT Negative (Negative); HEP.C VIRUS AB 0.4 s/co ratio (0.0-0.9)
[2017-11-13 14:29] LABS: ALBUMIN 2.7 g/dl (3.4-5.0); ALK PHOS 128 U/L (45-117); BILIRUBIN,DIRECT 0.9 mg/dL (0.0-0.2); BILIRUBIN,TOTAL 1.7 mg/dL (0.2-1.0); SGOT/AST 161 U/L (15-37); SGPT/ALT 150 U/L (12-78); TOT PROT 6.8 g/dl (6.4-8.2)
--- NOTE | 2017-11-13 15:40 | PN ---
Physical Exam: SUBJECTIVE: Patient seen and examined at bedside. Pt was febrile with Tmax 101.5. Pt complains of headache, which comes with his fevers. OBJECTIVE: Vital Signs Period Temp Pulse Resp BP Sys/Shah Pulse Ox Last 24 Hr 98.6 F-102.9 F 100-126 18-26 100-129/61-81 94-98 Gen: NAD HEENT: Moist membranes, NCAT, PERRL, EOMI Neck: supple no jvd Cardio: rrr, norm s1s2, no m/r/g Lungs: CTA b/l Abd: soft, nontender, norm bs, no guarding ext: 2+ pulses, no edema Laboratory Results - last 24 hr 11/11/17 11/11/17 11/13/17 06:15 06:15 08:20 WBC 6.6 RBC 4.10 Hgb 12.3 Hct 35.8 MCV 87.4 MCH 30.0 MCHC 34.3 RDW 14.1 Plt Count 53 L D MPV 12.0 H Absolute Neuts (auto) 3.4 Neutrophils % 51.7 Lymphocytes % 36.7 D Monocytes % 9.6 Eosinophils % 0.2 D Basophils % 1.8 D Nucleated RBC % 0 Sodium Potassium Chloride Carbon Dioxide Anion Gap BUN Creatinine Creat Clearance w eGFR Random Glucose Calcium Total Bilirubin Direct Bilirubin AST ALT Alkaline Phosphatase Total Protein Albumin Hepatitis A IgM Ab Negative Hep A IgM Ab Confirm Negative Hepatitis A Ab Total Positive H Hep Bs Antigen Negative Negative Hep Bs Antibody Non reactive Hep B Core Total Ab Negative Hep B Core IgM Ab Negative Hepatitis C Antibody 0.4 11/13/17 11/13/17 08:20 08:20 WBC RBC Hgb Hct MCV MCH MCHC RDW Plt Count MPV Absolute Neuts (auto) Neutrophils % Lymphocytes % Monocytes % Eosinophils % Basophils % Nucleated RBC % Sodium 132 L Potassium 3.7 Chloride 97 L Carbon Dioxide 26 Anion Gap 9 BUN 7 Creatinine 0.5 L Creat Clearance w eGFR > 60 Random Glucose 102 Calcium 8.2 L Total Bilirubin 1.7 H Cancelled Direct Bilirubin 0.9 H Cancelled AST 161 H D Cancelled ALT 150 H D Cancelled Alkaline Phosphatase 128 H Cancelled Total Protein 6.8 Cancelled Albumin 2.7 L Cancelled Hepatitis A IgM Ab Hep A IgM Ab Confirm Hepatitis A Ab Total Hep Bs Antigen Hep Bs Antibody Hep B Core Total Ab Hep B Core IgM Ab Hepatitis C Antibody Active Medications Generic Name Dose Route Start Last Admin Trade Name Mikaq PRN Reason Stop Dose Admin Acetaminophen 650 mg 11/11/17 23:37 11/13/17 15:29 Tylenol - PO 650 mg Q4H PRN Administration FEVER Atovaquone 750 mg 11/12/17 08:00 11/13/17 08:10 Mepron - PO 750 mg BIDWM REX Administration Doxycycline Hyclate 100 mg/ 100 mls @ 50 mls/hr 11/12/17 02:15 11/13/17 13:40 Dextrose IVPB 50 mls/hr Q12H REX Administration Sodium Chloride 1,000 mls @ 75 mls/hr 11/11/17 23:37 11/13/17 01:17 Normal Saline - IV 75 mls/hr ASDIR REX Administration Azithromycin 500 mg/ Dextrose 250 mls @ 250 mls/hr 11/12/17 17:00 11/12/17 17 :07 IVPB 250 mls/hr Q24H REX Administration ASSESSMENT/PLAN: 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 Pt was found to have sepsis 2/2 babesiosis. #Sepsis 2/2 Babesiosis -recurrent fevers -headache -ID on board -Heme on board -monitor blood parasite smear -Azithro -Atovaquone -Doxy - empiric coverage of Lyme, Anaplasmosis #Hemolysis -Hb stable -LD elevated -T bili & d bili elevated #Transaminitis -likely 2/2 babesiosis -monitor #Thrombocytopenia -2/2 babesiosis -Heme on board #FEN -NS -hyponatremia -Regular diet #PPx -SCDs #Dispo -Admitted to [facility] for babesiosis Jaron Craig MD PGY-1 Visit type - Emergency Visit Emergency Visit: No - New Patient This patient is new to me today: Yes Date on this admission: 11/13/17 - Critical Care Critical Care patient: No - Discharge Referral Referred to [facility] Med P.C.: No
[2017-11-13 16:24] LABS: CMV IgM 38.7 AU/mL (0.0-29.9)
[2017-11-13] MEDS: AZITHROMYCIN IVPB 500 MG in DEXTROSE 5%-WATER - 250 ML IVPB SCH (17:53)
[2017-11-13] MEDS ORDERED: IBUPROFEN 400 MG TABLET (FP) PO PRN (18:09)
[2017-11-14] MEDS ORDERED: PT OWN MED DRAWER 7, Y5N ONE ×2 (00:44→17:39)
[2017-11-14] MEDS: DOXYCYCLINE INJECTION 100 MG in DEXTROSE 5%-WATER - 100 ML IVPB SCH ×2 (01:18→13:37)
[2017-11-14] MEDS: SODIUM CHLORIDE 1,000 ML IV SCH ×2 (01:18→23:30)
[2017-11-14] MEDS: ACETAMINOPHEN 325 MG TABLET (FP) PO PRN ×2 (03:40→10:58)
[2017-11-14 06:20] LABS: BASO % 0.7 % (0-2.0); EOS % 0.4 % (0-4.5); HEMATOCRIT 32.7 % (35.4-49); HEMOGLOBIN 11.4 GM/dL (11.7-16.9); LYMPH % 30.4 % (8-40); MCH 30.1 pg (25.7-33.7); MCHC 34.7 g/dl (32.0-35.9); MEAN CELL VOLUME 86.6 fl (80-96); MEAN PLT VOLUME 12.1 fl (7.5-11.1); MONO % 13.7 % (3.8-10.2); NEUT % 54.8 % (42.8-82.8); PLATELET COUNT 49 K/MM3 (134-434); RBC 3.78 M/mm3 (4.00-5.60); RDW 14.1 % (11.9-15.9)
[2017-11-14 06:43] LABS: ALBUMIN 2.5 g/dl (3.4-5.0); ANION GAP 8 (8-16); BLOOD UREA NITROGEN 9 mg/dL (7-18); CALCIUM 7.9 mg/dL (8.5-10.1); CHLORIDE 100 mmol/L (98-107); CO2 27 mmol/L (21-32); CREATININE 0.5 mg/dL (0.7-1.3); GLUCOSE,RANDOM 104 mg/dL (74-106); POTASSIUM 3.9 mmol/L (3.5-5.1); SGOT/AST 262 U/L (15-37); SGPT/ALT 243 U/L (12-78); SODIUM 135 mmol/L (136-145)
[2017-11-14 07:02] LABS: ALK PHOS 122 U/L (45-117); BILIRUBIN,TOTAL 1.5 mg/dL (0.2-1.0); TOT PROT 6.3 g/dl (6.4-8.2)
[2017-11-14 07:18] LABS: LDH 1287 U/L (87-241)
[2017-11-14] MEDS: ATOVAQUONE 750 MG/5 ML SUSPENSION PO SCH ×2 (08:21→17:35)
--- NOTE | 2017-11-14 08:36 | PN ---
Physical Exam: SUBJECTIVE: Patient seen and examined at bedside. No acute events. Feels much better. OBJECTIVE: Vital Signs Period Temp Pulse Resp BP Sys/Shah Pulse Ox Last 24 Hr 97.9 F-101.5 F 70-105 18-26 108-129/53-83 94-94 Gen: NAD HEENT: Moist membranes, NCAT, PERRL, EOMI Neck: supple no jvd Cardio: rrr, norm s1s2, no m/r/g Lungs: CTA b/l Abd: soft, nontender, norm bs, no guarding ext: 2+ pulses, no edema Laboratory Results - last 24 hr 11/11/17 11/11/17 11/13/17 06:15 06:15 08:20 WBC 6.6 RBC 4.10 Hgb 12.3 Hct 35.8 MCV 87.4 MCH 30.0 MCHC 34.3 RDW 14.1 Plt Count 53 L D MPV 12.0 H Absolute Neuts (auto) 3.4 Neutrophils % 51.7 Lymphocytes % 36.7 D Monocytes % 9.6 Eosinophils % 0.2 D Basophils % 1.8 D Nucleated RBC % 0 Sodium Potassium Chloride Carbon Dioxide Anion Gap BUN Creatinine Creat Clearance w eGFR Random Glucose Calcium Total Bilirubin Direct Bilirubin AST ALT Alkaline Phosphatase LD Total Total Protein Albumin CHEPE Screen Positive H CHEPE Homogeneous Pattern TNP CHEPE Nucleolar Pattern TNP CHEPE Spindle Rahat Pattern TNP CHEPE Midbody Pattern TNP CHEPE Centriole Pattern TNP CHEPE Nuclear Dot Pattern TNP CHEPE PCNA Pattern TNP CHEPE Nuclear Membr Pat TNP CHEPE Speckled Pattern 1:320 H CHEPE Centromere Pattern TNP CMV IgG Ab > 10.00 H CMV IgM Ab 38.7 H EBV Nuclear Antigen 561.0 H Hepatitis A IgM Ab Negative Hep A IgM Ab Confirm Negative Hepatitis A Ab Total Positive H Hep Bs Antigen Negative Negative Hep Bs Antibody Non reactive Hep B Core Total Ab Negative Hep B Core IgM Ab Negative Hepatitis C Antibody 0.4 11/13/17 11/13/17 11/14/17 08:20 08:20 05:30 WBC 5.0 RBC 3.78 L Hgb 11.4 L Hct 32.7 L MCV 86.6 MCH 30.1 MCHC 34.7 RDW 14.1 Plt Count 49 L MPV 12.1 H Absolute Neuts (auto) 2.7 Neutrophils % 54.8 Lymphocytes % 30.4 Monocytes % 13.7 H Eosinophils % 0.4 D Basophils % 0.7 Nucleated RBC % 0 Sodium 132 L Potassium 3.7 Chloride 97 L Carbon Dioxide 26 Anion Gap 9 BUN 7 Creatinine 0.5 L Creat Clearance w eGFR > 60 Random Glucose 102 Calcium 8.2 L Total Bilirubin 1.7 H Cancelled Direct Bilirubin 0.9 H Cancelled AST 161 H D Cancelled ALT 150 H D Cancelled Alkaline Phosphatase 128 H Cancelled LD Total Total Protein 6.8 Cancelled Albumin 2.7 L Cancelled CHEPE Screen CHEPE Homogeneous Pattern CHEPE Nucleolar Pattern CHEPE Spindle Rahat Pattern CHEPE Midbody Pattern CHEPE Centriole Pattern CHEPE Nuclear Dot Pattern CHEPE PCNA Pattern CHEPE Nuclear Membr Pat CEHPE Speckled Pattern CHEPE Centromere Pattern CMV IgG Ab CMV IgM Ab EBV Nuclear Antigen Hepatitis A IgM Ab Hep A IgM Ab Confirm Hepatitis A Ab Total Hep Bs Antigen Hep Bs Antibody Hep B Core Total Ab Hep B Core IgM Ab Hepatitis C Antibody 11/14/17 05:30 WBC RBC Hgb Hct MCV MCH MCHC RDW Plt Count MPV Absolute Neuts (auto) Neutrophils % Lymphocytes % Monocytes % Eosinophils % Basophils % Nucleated RBC % Sodium 135 L Potassium 3.9 Chloride 100 Carbon Dioxide 27 Anion Gap 8 BUN 9 D Creatinine 0.5 L Creat Clearance w eGFR > 60 Random Glucose 104 Calcium 7.9 L Total Bilirubin 1.5 H Direct Bilirubin AST 262 H D ALT 243 H D Alkaline Phosphatase 122 H LD Total 1287 H Total Protein 6.3 L Albumin 2.5 L CHEPE Screen CHEPE Homogeneous Pattern CHEPE Nucleolar Pattern CHEPE Spindle Rahat Pattern CHEPE Midbody Pattern CHEPE Centriole Pattern CHEPE Nuclear Dot Pattern CHEPE PCNA Pattern CHEPE Nuclear Membr Pat CHEPE Speckled Pattern CHEPE Centromere Pattern CMV IgG Ab CMV IgM Ab EBV Nuclear Antigen Hepatitis A IgM Ab Hep A IgM Ab Confirm Hepatitis A Ab Total Hep Bs Antigen Hep Bs Antibody Hep B Core Total Ab Hep B Core IgM Ab Hepatitis C Antibody Active Medications Generic Name Dose Route Start Last Admin Trade Name Freq PRN Reason Stop Dose Admin Acetaminophen 650 mg 11/11/17 23:37 11/14/17 03:40 Tylenol - PO 650 mg Q4H PRN Administration FEVER Atovaquone 750 mg 11/12/17 08:00 11/13/17 17:52 Mepron - PO 750 mg BIDWM REX Administration Doxycycline Hyclate 100 mg/ 100 mls @ 50 mls/hr 11/12/17 02:15 11/14/17 01:18 Dextrose IVPB 50 mls/hr Q12H REX Administration Sodium Chloride 1,000 mls @ 75 mls/hr 11/11/17 23:37 11/14/17 01:18 Normal Saline - IV 75 mls/hr ASDIR REX Administration Azithromycin 500 mg/ Dextrose 250 mls @ 250 mls/hr 11/12/17 17:00 11/13/17 17 :53 IVPB 250 mls/hr Q24H REX Administration Ibuprofen 400 mg 11/13/17 18:09 11/13/17 18:32 Motrin - PO 400 mg Q6H PRN Administration FEVER ASSESSMENT/PLAN: 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 Pt was found to have sepsis 2/2 babesiosis. #Sepsis 2/2 Babesiosis -recurrent fevers -headache -ID on board -Heme on board -monitor blood parasite smear -Azithro -Atovaquone -Doxy - empiric coverage of Lyme, Anaplasmosis -Anaplasma PCR sent -Chest CT pending #Hemolysis -Hb stable -LD elevated -T bili & d bili elevated #Transaminitis -likely 2/2 babesiosis -GI consult: rec monitoring LFTs while pt on hepatotoxic agents -Liver US official read pending #Thrombocytopenia -2/2 babesiosis -Heme on board #FEN -NS -hyponatremia -Regular diet #PPx -SCDs #Dispo -Admitted to [facility] for babesiosis Jaron Craig MD PGY-1 Visit type - Emergency Visit Emergency Visit: No - New Patient This patient is new to me today: No - Critical Care Critical Care patient: No - Discharge Referral Referred to [facility] Med P.C.: No
[2017-11-14 09:11] LABS: INR 1.3 (0.82-1.09); PROTHROMBIN TIME (PATIENT) 14.7 SEC (9.7-13.0)
--- NOTE | 2017-11-14 11:01 | PN ---
Progress Note (short form) - Note Progress Note: seen and examined. clinically improved Constitutional: Yes: Other (febrile, looks fatigued) Eyes: Yes: Conjunctiva Clear HENT: Yes: Atraumatic, Normocephalic Neck: Yes: Supple Cardiovascular: Yes: Tachycardia Respiratory: Yes: Regular, CTA Bilaterally Gastrointestinal: Yes: Soft Musculoskeletal: Yes: WNL Edema: No Neurological: Yes: Alert Labs: Last Vital Signs Temp Pulse Resp BP Pulse Ox 98.5 F 88 14 116/64 96 11/12/17 08:44 11/12/17 08:44 11/12/17 08:44 11/12/17 08:44 11/11/17 21:00 CBC, BMP 11/12/17 06:00 11/12/17 06:00 Current Medications Generic Name Dose Route Start Last Admin Trade Name Freq PRN Reason Stop Dose Admin Acetaminophen 650 mg 11/11/17 23:37 11/12/17 05:42 Tylenol - PO 650 mg Q4H PRN Administration FEVER Atovaquone 750 mg 11/12/17 08:00 11/12/17 09:31 Mepron - PO 750 mg BIDWM REX Administration Doxycycline Hyclate 100 mg/ 100 mls @ 50 mls/hr 11/12/17 02:15 11/12/17 01:35 Dextrose IVPB 50 mls/hr Q12H REX Administration Sodium Chloride 1,000 mls @ 75 mls/hr 11/11/17 23:37 11/11/17 23:45 Normal Saline - IV 75 mls/hr ASDIR REX Administration Azithromycin 500 mg/ Dextrose 250 mls @ 250 mls/hr 11/12/17 17:00 IVPB Q24H REX 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 Intermittent febrile. Parasitic load as of yesterday decreasing, repeat one today pending, to be followed. abx per ID With parasite load decreasing, but LFT rising ?, bili down trended, ?component of meds. to be followed very closely, repeat labs. Imaging of the liver, order CT chest, GI consult
[2017-11-14 11:19] LABS: ANISOCYTOSIS 1+; MACROCYTOSIS 1+; PLATELET ESTIMATE DECREASED
--- NOTE | 2017-11-14 13:37 | PN ---
Progress Note (short form) - Note Progress Note: feels a bit better today, temps trending down no headache eating Vital Signs Period Temp Pulse Resp BP Sys/Shah Pulse Ox Last 24 Hr 97.9 F-100.7 F 70-103 18-20 108-125/53-83 94 cor-rrr llungs clear abd soft,nt ext no edema CBC, BMP 11/14/17 05:30 11/14/17 05:30 Laboratory Tests 11/14/17 05:30 AST 262 H D ALT 243 H D Alkaline Phosphatase 122 H LD Total 1287 H Microbiology 11/10/17 09:48 Blood - Peripheral Venous Blood Culture - Preliminary NO GROWTH OBTAINED AFTER 96 HOURS, INCUBATION TO CONTINUE FOR 1 DAYS. 11/10/17 09:30 Blood - Peripheral Venous Blood Culture - Preliminary NO GROWTH OBTAINED AFTER 96 HOURS, INCUBATION TO CONTINUE FOR 1 DAYS. 11/13/17 12:04 Blood - Peripheral Venous Blood Parasites Smear - Final Babesia Species 11/12/17 06:00 Blood - Peripheral Venous Blood Parasites Smear - Final Babesia Species 11/11/17 06:15 Blood - Peripheral Venous Blood Parasites Smear - Final Babesia Species 11/10/17 09:30 Urine - Urine Clean Catch Urine Culture - Final NO GROWTH OBTAINED 11/10/17 09:46 Nasopharyngeal Swab Influenza Types A,B Antigen - Final 11/10/17 09:46 Nasopharyngeal Swab - Final a/p Babesiosis- continue zithromax/mepron- fevers down-day #3 continue doxycycline as well to cover for other tick related illness send anaplasma pcr as well clinically starting to improve f/u smears and labs
--- NOTE | 2017-11-14 14:10 | PN ---
Teaching Attending Note Name of Resident: Jaron Craig ATTENDING PHYSICIAN STATEMENT I saw and evaluated the patient. I reviewed the resident's note and discussed the case with the resident. I agree with the resident's findings and plan as documented with exceptions below. SUBJECTIVE: Patient seen and examined, Headache/bodyaches improved. Appetite better, no new complaints. OBJECTIVE: Vital Signs Period Temp Pulse Resp BP Sys/Shah Pulse Ox Last 24 Hr 97.9 F-100.7 F 70-103 18-20 108-125/53-83 94 Intake & Output 11/11/17 11/12/17 11/13/17 11/14/17 23:59 23:59 23:59 23:59 Intake Total 1950 2425 2500 1500 Output Total 2075 1000 Balance -125 1425 2500 1500 General: lying in bed in no acute distress Chest: CTAB, no rales or wheezing abdomen:soft, NT throughout, ND, no hepatosplenomegaly appreciated on exam Extremities: no edema Home Medication List Medication Instructions Recorded Confirmed Type NK [No Known Home Medication] 04/26/16 11/10/17 History Active Medications Generic Name Dose Route Start Last Admin Trade Name Montserrat PRN Reason Stop Dose Admin Atovaquone 750 mg 11/12/17 08:00 11/14/17 08:21 Mepron - PO 750 mg BIDWM REX Administration Doxycycline Hyclate 100 mg/ 100 mls @ 50 mls/hr 11/12/17 02:15 11/14/17 13:37 Dextrose IVPB 50 mls/hr Q12H REX Administration Sodium Chloride 1,000 mls @ 75 mls/hr 11/11/17 23:37 11/14/17 01:18 Normal Saline - IV 75 mls/hr ASDIR REX Administration Azithromycin 500 mg/ Dextrose 250 mls @ 250 mls/hr 11/12/17 17:00 11/13/17 17 :53 IVPB 250 mls/hr Q24H REX Administration Laboratory Results - last 24 hr 11/11/17 11/11/17 11/13/17 06:15 06:15 08:20 WBC RBC Hgb Hct MCV MCH MCHC RDW Plt Count MPV Absolute Neuts (auto) Neutrophils % Neutrophils % (Manual) Band Neutrophils % Lymphocytes % Lymphocytes % (Manual) Monocytes % Monocytes % (Manual) Eosinophils % Eosinophils % (Manual) Basophils % Basophils % (Manual) Myelocytes % (Man) Promyelocytes % (Man) Blast Cells % (Manual) Nucleated RBC % Metamyelocytes Hypochromia Platelet Estimate Platelet Comment Polychromasia Poikilocytosis Anisocytosis Microcytosis Macrocytosis Spherocytes PT with INR INR Sodium 132 L Potassium 3.7 Chloride 97 L Carbon Dioxide 26 Anion Gap 9 BUN 7 Creatinine 0.5 L Creat Clearance w eGFR > 60 Random Glucose 102 Calcium 8.2 L Total Bilirubin 1.7 H Direct Bilirubin 0.9 H AST 161 H D ALT 150 H D Alkaline Phosphatase 128 H LD Total Total Protein 6.8 Albumin 2.7 L CHEPE Screen Positive H CHEPE Homogeneous Pattern TNP CHEPE Nucleolar Pattern TNP CHEPE Spindle Rahat Pattern TNP CHEPE Midbody Pattern TNP CHEPE Centriole Pattern TNP CHEPE Nuclear Dot Pattern TNP CHEPE PCNA Pattern TNP CHEPE Nuclear Membr Pat TNP CHEPE Speckled Pattern 1:320 H CHEPE Centromere Pattern TNP CMV IgG Ab > 10.00 H CMV IgM Ab 38.7 H EBV Nuclear Antigen 561.0 H Hepatitis A IgM Ab Negative Hep A IgM Ab Confirm Negative Hepatitis A Ab Total Positive H Hep Bs Antigen Negative Negative Hep Bs Antibody Non reactive Hep B Core Total Ab Negative Hep B Core IgM Ab Negative Hepatitis C Antibody 0.4 11/13/17 11/14/17 11/14/17 08:20 05:30 05:30 WBC 5.0 RBC 3.78 L Hgb 11.4 L Hct 32.7 L MCV 86.6 MCH 30.1 MCHC 34.7 RDW 14.1 Plt Count 49 L MPV 12.1 H Absolute Neuts (auto) 2.7 Neutrophils % 54.8 Neutrophils % (Manual) 65.0 Band Neutrophils % 4.0 Lymphocytes % 30.4 Lymphocytes % (Manual) 21.0 D Monocytes % 13.7 H Monocytes % (Manual) 6 D Eosinophils % 0.4 D Eosinophils % (Manual) 1.0 D Basophils % 0.7 Basophils % (Manual) 0.0 Myelocytes % (Man) 0 Promyelocytes % (Man) 0 Blast Cells % (Manual) 0 Nucleated RBC % 0 Metamyelocytes 0 Hypochromia 0 Platelet Estimate Decreased Platelet Comment Polychromasia 0 Poikilocytosis 0 Anisocytosis 1+ Microcytosis 1+ Macrocytosis 1+ Spherocytes 1+ PT with INR INR Sodium 135 L Potassium 3.9 Chloride 100 Carbon Dioxide 27 Anion Gap 8 BUN 9 D Creatinine 0.5 L Creat Clearance w eGFR > 60 Random Glucose 104 Calcium 7.9 L Total Bilirubin Cancelled 1.5 H Direct Bilirubin Cancelled AST Cancelled 262 H D ALT Cancelled 243 H D Alkaline Phosphatase Cancelled 122 H LD Total 1287 H Total Protein Cancelled 6.3 L Albumin Cancelled 2.5 L CHEPE Screen CHEPE Homogeneous Pattern CHEPE Nucleolar Pattern CHEPE Spindle Rahat Pattern CHEPE Midbody Pattern CHEPE Centriole Pattern CHEPE Nuclear Dot Pattern CHEPE PCNA Pattern CHEPE Nuclear Membr Pat CHEPE Speckled Pattern CHEPE Centromere Pattern CMV IgG Ab CMV IgM Ab EBV Nuclear Antigen Hepatitis A IgM Ab Hep A IgM Ab Confirm Hepatitis A Ab Total Hep Bs Antigen Hep Bs Antibody Hep B Core Total Ab Hep B Core IgM Ab Hepatitis C Antibody 11/14/17 08:26 WBC RBC Hgb Hct MCV MCH MCHC RDW Plt Count MPV Absolute Neuts (auto) Neutrophils % Neutrophils % (Manual) Band Neutrophils % Lymphocytes % Lymphocytes % (Manual) Monocytes % Monocytes % (Manual) Eosinophils % Eosinophils % (Manual) Basophils % Basophils % (Manual) Myelocytes % (Man) Promyelocytes % (Man) Blast Cells % (Manual) Nucleated RBC % Metamyelocytes Hypochromia Platelet Estimate Platelet Comment Polychromasia Poikilocytosis Anisocytosis Microcytosis Macrocytosis Spherocytes PT with INR 14.70 H INR 1.30 H Sodium Potassium Chloride Carbon Dioxide Anion Gap BUN Creatinine Creat Clearance w eGFR Random Glucose Calcium Total Bilirubin Direct Bilirubin AST ALT Alkaline Phosphatase LD Total Total Protein Albumin CHEPE Screen CHEPE Homogeneous Pattern CHEPE Nucleolar Pattern CHEPE Spindle Rahat Pattern CHEPE Midbody Pattern CHEPE Centriole Pattern CHEPE Nuclear Dot Pattern CHEPE PCNA Pattern CHEPE Nuclear Membr Pat CHEPE Speckled Pattern CHEPE Centromere Pattern CMV IgG Ab CMV IgM Ab EBV Nuclear Antigen Hepatitis A IgM Ab Hep A IgM Ab Confirm Hepatitis A Ab Total Hep Bs Antigen Hep Bs Antibody Hep B Core Total Ab Hep B Core IgM Ab Hepatitis C Antibody Microbiology 11/10/17 09:48 Blood - Peripheral Venous Blood Culture - Preliminary NO GROWTH OBTAINED AFTER 96 HOURS, INCUBATION TO CONTINUE FOR 1 DAYS. 11/10/17 09:30 Blood - Peripheral Venous Blood Culture - Preliminary NO GROWTH OBTAINED AFTER 96 HOURS, INCUBATION TO CONTINUE FOR 1 DAYS. 11/13/17 12:04 Blood - Peripheral Venous Blood Parasites Smear - Final Babesia Species 11/12/17 06:00 Blood - Peripheral Venous Blood Parasites Smear - Final Babesia Species 06/16/18 06:15 Blood - Peripheral Venous Blood Parasites Smear - Final Babesia Species 11/10/17 09:30 Urine - Urine Clean Catch Urine Culture - Final NO GROWTH OBTAINED 11/10/17 09:46 Nasopharyngeal Swab Influenza Types A,B Antigen - Final 11/10/17 09:46 Nasopharyngeal Swab - Final ASSESSMENT AND PLAN: 32yo M with babesiosis, abnormal LFts and persistent fevers. -Sepsis due to babesiosis -Abnormal LFTs, rising, ?Babesiosis, vs coinfection with tick borne illness vs medication induced. -Anemia/thrombocytopenia Plan: Persistent fevers, parasitemia clearing. Atovaquone/Doxycycline/Azithromycin day 3. ID/hematology input noted. Check Abdominal US. CT chest and GI input. Limited options for anti-pyretics given rising LFts and thrombocytopenia, Prn with caution and close monitoring. Monitor h/h. Follow up hep panel, lyme/EBV/Ehrlichia serology. DVTPPx with SCDs given thrombocytopenia. Plan discussed with patient in detail, all questions answered.
--- NOTE | 2017-11-14 14:33 | CON.GI ---
Consult Consult Specialty:: GI: Dr. Woods for Dr. Garsia Referred by:: Hospitalist service Reason for Consultation:: Abnormal LFTs - History of Present Illness Chief Complaint: Fevers History of Present Illness: 32M admitted through [facility] ER 11/10 for evaluation of persistent fevers along with nausea and vomiting. He denies associated abdominal pain, similar episodes in the past. Work-up has revealed a peripheral parasite smear + for babesia. He had A mild mixed hepatocellular / cholesstatic liver injury pattern on admission blood work as well as thrombocytopenia. He described taking 1-2 tylenol pills alternating with ibuprofen the days priot to his admission to treat fever and he denies a history of liver disease, IVDU/DA, transfusions, family history of liver disease or autoimkmune disease. He denies any recent travel, diarrhea or rashes. He describes being in a monogamous relationship with his . He has been evaluated by ID and hematology . He was given rocephin and doxycycline 11/10, mepron 11/11 and zithromax 11/11. LFTs showed mild improvement but started rising 11/12. he has been getting tylenol and ibuprofen for fevers. There is concern of hemolysis as well. - History Source History Provided By: Patient Limitations to Obtaining History: No Limitations - Past Medical History Additional Medical History: Denies - Past Surgical History Additional Surgical History: Denies - Alcohol/Substance Use Hx Alcohol Use: Yes (occasional) History of Substance Use: reports: None - Smoking History Smoking history: Never smoked Have you smoked in the past 12 months: No - Social History Usual Living Arrangement: With Spouse ADL: Independent Occupation: Works in a kitchen Place of : Other ([place]) Came to [place]year[place] 2002 History of Recent Travel: No Home Medications - Allergies Allergies/Adverse Reactions: Allergies Allergy/AdvReac Type Severity Reaction Status Date / Time No Known Allergies Allergy Verified 04/26/16 10:11 - Home Medications Home Medications: Ambulatory Orders NK [No Known Home Medication] 04/26/16 Family Disease History - Family Disease History Family Disease History: Other: Father (Alive: healthy), Mother (Alive: healthy) , Brother (4, healthy), Sister (1, healthy), Daughter (1, healthy) Other Family History: No family history of liver disease Review of Systems - Review of Systems Constitutional: reports: Chills, Fever, Lethargy Cardiovascular: denies: Chest Pain Gastrointestinal: reports: Nausea (resolved), Vomiting (resolved). denies: Abdominal Pain, Constipation, Diarrhea, Dysphagia Integumentary: denies: Rash Physical Exam-GI Vital Signs: Vital Signs Temperature 98.8 F 11/14/17 06:00 Pulse Rate 96 H 11/14/17 06:00 Respiratory Rate 20 11/14/17 06:00 Blood Pressure 108/54 11/14/17 06:00 O2 Sat by Pulse Oximetry (%) 94 L 11/13/17 21:00 Constitutional: Yes: Calm Eyes: No: Sclera Icterus (mild) Cardiovascular: Yes: Regular Rate and Rhythm Respiratory: Yes: CTA Bilaterally Gastrointestinal Inspection: No: Distention, Scars ...Auscultate: Yes: Normoactive Bowel Sounds ...Palpate: No: Hepatomegaly, Splenomegaly ...Percussion: No: Tympanitic Edema: No (No LE edema) Neurological: Yes: Alert, Oriented Labs: CBC, BMP 11/14/17 05:30 11/14/17 05:30 INR, PTT INR 1.30 (0.82-1.09) H 11/14/17 08:26 Hepatic Panel Total Bilirubin 1.5 mg/dL (0.2-1.0) H 11/14/17 05:30 Direct Bilirubin 0.9 mg/dL (0.0-0.2) H 11/13/17 08:20 AST 262 U/L (15-37) H D 11/14/17 05:30 ALT 243 U/L (12-78) H D 11/14/17 05:30 Alkaline Phosphatase 122 U/L (45-117) H 11/14/17 05:30 Albumin 2.5 g/dl (3.4-5.0) L 11/14/17 05:30 Laboratory Tests 11/11/17 11/11/17 11/11/17 06:15 06:15 06:15 CMV IgG Ab > 10.00 H CMV IgM Ab 38.7 H Hep A IgM Ab Confirm Negative Hepatitis A Ab Total Positive H Hep Bs Antigen Negative Hep Bs Antibody Non reactive Hep B Core Total Ab Negative Hep B Core IgM Ab Negative Hepatitis C Antibody 0.4 HIV 1&2 Antibody Screen Negative HIV P24 Antigen Negative Imaging - Results Cat Scan: Report Reviewed, Image Reviewed Problem List - Problems (1) Elevated LFTs Assessment/Plan: 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 Tylenol has been discontinued. LFTs will need to be monitored while on hepatotoxic agents. Current antibiotic regimen necessary for treatment of Mr. Khalil' Babesiosis per ID Hematology is following. ? hemolysis Abdominal US to be performed today Avoid other hepatotoxic agents. Tylenol has been discontinued Ordered CPK Code(s): R94.5 - ABNORMAL RESULTS OF LIVER FUNCTION STUDIES
[2017-11-14] MEDS: AZITHROMYCIN IVPB 500 MG in DEXTROSE 5%-WATER - 250 ML IVPB SCH (17:37)
[2017-11-14 17:39] LABS: BASO % 0.8 % (0-2.0); EOS % 0.3 % (0-4.5); HEMATOCRIT 32.6 % (35.4-49); HEMOGLOBIN 11.3 GM/dL (11.7-16.9); LYMPH % 34.4 % (8-40); MCH 30.1 pg (25.7-33.7); MCHC 34.7 g/dl (32.0-35.9); MEAN CELL VOLUME 86.6 fl (80-96); MEAN PLT VOLUME 11.6 fl (7.5-11.1); MONO % 10.5 % (3.8-10.2); PLATELET COUNT 60 K/MM3 (134-434); RBC 3.77 M/mm3 (4.00-5.60); RDW 14.1 % (11.9-15.9); WHITE BLOOD COUNT 5.6 K/mm3 (4.0-10.0)
[2017-11-14 18:31] LABS: ALBUMIN 2.6 g/dl (3.4-5.0); ANION GAP 10 (8-16); BILIRUBIN,TOTAL 1.7 mg/dL (0.2-1.0); BLOOD UREA NITROGEN 9 mg/dL (7-18); CALCIUM 7.6 mg/dL (8.5-10.1); CHLORIDE 96 mmol/L (98-107); CO2 27 mmol/L (21-32); CREATININE 0.5 mg/dL (0.7-1.3); GLUCOSE,RANDOM 141 mg/dL (74-106); POTASSIUM 3.8 mmol/L (3.5-5.1); SGOT/AST 217 U/L (15-37); SGPT/ALT 235 U/L (12-78); SODIUM 133 mmol/L (136-145); TOT PROT 6.5 g/dl (6.4-8.2)
[2017-11-14 18:39] LABS: ALK PHOS 141 U/L (45-117)
[2017-11-14 18:40] LABS: LDH 1275 U/L (87-241)
[2017-11-14] MEDS ORDERED: IBUPROFEN 400 MG TABLET (FP) PO ONE (19:45)
[2017-11-14] MEDS ORDERED: ACETAMINOPHEN 325 MG TABLET (FP) PO ONE (20:00)
[2017-11-15] MEDS ORDERED: PT OWN MED DRAWER 7, Y5N ONE ×3 (00:37→18:13)
[2017-11-15] MEDS: DOXYCYCLINE INJECTION 100 MG in DEXTROSE 5%-WATER - 100 ML IVPB SCH ×2 (02:30→13:31)
[2017-11-15] MEDS ORDERED: ACETAMINOPHEN 325 MG TABLET (FP) PO ONE (05:06)
[2017-11-15 06:34] LABS: BASO % 0.8 % (0-2.0); EOS % 0.2 % (0-4.5); HEMATOCRIT 30.6 % (35.4-49); HEMOGLOBIN 10.7 GM/dL (11.7-16.9); LYMPH % 35.8 % (8-40); MCH 30.1 pg (25.7-33.7); MCHC 34.9 g/dl (32.0-35.9); MEAN CELL VOLUME 86.4 fl (80-96); MEAN PLT VOLUME 11.9 fl (7.5-11.1); MONO % 13.2 % (3.8-10.2); PLATELET COUNT 54 K/MM3 (134-434); RBC 3.54 M/mm3 (4.00-5.60); RDW 13.7 % (11.9-15.9); WHITE BLOOD COUNT 6.1 K/mm3 (4.0-10.0)
[2017-11-15 06:59] LABS: ALBUMIN 2.5 g/dl (3.4-5.0); BLOOD UREA NITROGEN 8 mg/dL (7-18); CHLORIDE 97 mmol/L (98-107); GLUCOSE,RANDOM 95 mg/dL (74-106); SGOT/AST 171 U/L (15-37); SGPT/ALT 216 U/L (12-78); SODIUM 133 mmol/L (136-145)
[2017-11-15 07:01] LABS: ALK PHOS 139 U/L (45-117); ANION GAP 11 (8-16); BILIRUBIN,DIRECT 0.8 mg/dL (0.0-0.2); BILIRUBIN,TOTAL 1.4 mg/dL (0.2-1.0); CALCIUM 7.5 mg/dL (8.5-10.1); CO2 25 mmol/L (21-32); CREATININE 0.4 mg/dL (0.7-1.3); TOT PROT 6.3 g/dl (6.4-8.2)
[2017-11-15] MEDS: ATOVAQUONE 750 MG/5 ML SUSPENSION PO SCH ×2 (08:21→18:09)
[2017-11-15] MEDS ORDERED: IBUPROFEN 400 MG TABLET (FP) PO ONE (08:30)
[2017-11-15 09:19] LABS: LDH 1193 U/L (87-241)
--- NOTE | 2017-11-15 11:01 | PN ---
Progress Note, Physician Chief Complaint: ID Complains of severe headaches once again Doxycyline and Basesia treatment - Current Medication List Current Medications: Active Medications Atovaquone (Mepron -) 750 mg PO BIDWM [facility] Last Admin: 11/15/17 08:21 Dose: 750 mg Doxycycline Hyclate 100 mg/ (Dextrose) 100 mls @ 50 mls/hr IVPB Q12H [facility] Last Admin: 11/15/17 02:30 Dose: 50 mls/hr Sodium Chloride (Normal Saline -) 1,000 mls @ 75 mls/hr IV ASDIR [facility] Last Admin: 11/14/17 23:30 Dose: 75 mls/hr Azithromycin 500 mg/ Dextrose 250 mls @ 250 mls/hr IVPB Q24H [facility] Last Admin: 11/14/17 17:37 Dose: 250 mls/hr Morphine Sulfate (Morphine Injection -) 1 mg IVPUSH ONCE ONE Stop: 11/15/17 10:50 - Objective Vital Signs: Vital Signs Temperature 98.9 F 11/15/17 10:25 Pulse Rate 96 H 11/15/17 10:25 Respiratory Rate 19 11/15/17 05:00 Blood Pressure 122/62 11/15/17 10:25 O2 Sat by Pulse Oximetry (%) 97 11/14/17 21:00 Constitutional: Yes: Well Nourished, No Distress HENT: Yes: WNL, Atraumatic Neck: Yes: Other (Pain on flexion of neck) Cardiovascular: Yes: Regular Rate and Rhythm, S1, S2. No: Murmur Respiratory: Yes: WNL, Regular, CTA Bilaterally Gastrointestinal: Yes: WNL, Normal Bowel Sounds, Soft. No: Tenderness, Tenderness, Epigastrium Edema: No Labs: CBC, BMP 11/15/17 05:30 11/15/17 05:30 INR, PTT INR 1.30 (0.82-1.09) H 11/14/17 08:26 Problem List - Problems (1) Elevated LFTs Code(s): R94.5 - ABNORMAL RESULTS OF LIVER FUNCTION STUDIES (2) Fever, unknown origin Code(s): R50.9 - FEVER, UNSPECIFIED (3) Thrombocytopenia Code(s): D69.6 - THROMBOCYTOPENIA, UNSPECIFIED Assessment/Plan Laboratory Tests 06/16/18 06/16/18 06/16/18 06:15 06:15 06:15 WBC Hgb Hct Plt Count Neutrophils % Lymphocytes % Monocytes % Eosinophils % BUN Creatinine Total Bilirubin AST Alkaline Phosphatase C-Reactive Protein 16.0 H CHEPE Screen Positive H CHEPE Speckled Pattern 1:320 H Lyme Antibody Value Pending Lyme IgM Quantitation Pending CMV IgG Ab > 10.00 H CMV IgM Ab 38.7 H EBV Nuclear Antigen 561.0 H EBV DNA (PCR) 630 EBV DNA Quant PCR log10 2.799 Hepatitis A Ab Total Positive H Hep Bs Antigen Negative Hep Bs Antibody Non reactive Hep B Core Total Ab Negative Hep B Core IgM Ab Negative Hepatitis C Antibody 0.4 HIV 1&2 Antibody Screen HIV P24 Antigen 11/11/17 11/15/17 11/15/17 06:15 05:30 05:30 WBC 6.1 Hgb 10.7 L Hct 30.6 L Plt Count 54 L Neutrophils % 50.0 Lymphocytes % 35.8 Monocytes % 13.2 H Eosinophils % 0.2 BUN 8 Creatinine 0.4 L Total Bilirubin 1.4 H AST 171 H D Alkaline Phosphatase 139 H C-Reactive Protein CHEPE Screen CHEPE Speckled Pattern Lyme Antibody Value Lyme IgM Quantitation CMV IgG Ab CMV IgM Ab EBV Nuclear Antigen EBV DNA (PCR) EBV DNA Quant PCR log10 Hepatitis A Ab Total Hep Bs Antigen Hep Bs Antibody Hep B Core Total Ab Hep B Core IgM Ab Hepatitis C Antibody HIV 1&2 Antibody Screen Negative HIV P24 Antigen Negative Assessment Fever with severe headache and now his neck appears to hurt with flexion Difficult to postulate he has other then tick related illness. That said he could have lyme meningitis Lyme test pending Anemia ? blood drw vs hemolysis Retic was normal Plan Add Ceftriaxone for [employer] coverage of Lyme 2 grs q 24 H Anaplamosis serology Continue doxy Blood cultures Retic count Babesia therapy Troy KWOK
[2017-11-15] MEDS ORDERED: MORPHINE SULFATE 2 MG/ML VIAL IVPUSH ONE (11:45)
[2017-11-15 11:48] LABS: ANISOCYTOSIS 3+; MACROCYTOSIS 0; PLATELET ESTIMATE DECREASED
[2017-11-15] MEDS ORDERED: DEXTROSE 5%-WATER 100 ML IVPB ONE (13:04)
[2017-11-15 13:17] LABS: INR 1.29 (0.82-1.09); PROTHROMBIN TIME (PATIENT) 14.6 SEC (9.7-13.0)
[2017-11-15] MEDS: CEFTRIAXONE 2 GM in DEXTROSE 5%-WATER 100 ML IVPB SCH (13:20)
--- NOTE | 2017-11-15 13:20 | PN ---
Teaching Attending Note Name of Resident: Jaron Craig ATTENDING PHYSICIAN STATEMENT I saw and evaluated the patient. I reviewed the resident's note and discussed the case with the resident. I agree with the resident's findings and plan as documented with exceptions below. SUBJECTIVE: patient seen and examined, worsening headache today. Still with fevers, denies any nausea, vomiting, abdominal pain or diarrhea. OBJECTIVE: Vital Signs Period Temp Pulse Resp BP Sys/Shah Pulse Ox Last 24 Hr 98.1 F-101.8 F 86-115 18-20 106-130/62-74 97 Intake & Output 11/12/17 11/13/17 11/14/17 11/15/17 23:59 23:59 23:59 23:59 Intake Total 2425 2500 1980 1330 Output Total 1000 400 500 Balance 1425 2500 1580 830 General: lying in bed, weak looking but no acute distress Chest: CTAB, no rales or wheezing Abdomen:soft, NT, throughout, ND, unable to appreciate hepatosplenomegaly, no RUQ or LUQ tenderness Extremities: no edema Neck: mild pain in occipital region with chin to chest maneuver. otherwise neg meningeal signs, AAOX3, power 5/5, facial symmetry, non focal exam Active Medications Atovaquone (Mepron -) 750 mg PO BIDWM REX Last Admin: 11/15/17 08:21 Dose: 750 mg Doxycycline Hyclate 100 mg/ (Dextrose) 100 mls @ 50 mls/hr IVPB Q12H REX Last Admin: 11/15/17 02:30 Dose: 50 mls/hr Sodium Chloride (Normal Saline -) 1,000 mls @ 75 mls/hr IV ASDIR REX Last Admin: 11/14/17 23:30 Dose: 75 mls/hr Azithromycin 500 mg/ Dextrose 250 mls @ 250 mls/hr IVPB Q24H REX Last Admin: 11/14/17 17:37 Dose: 250 mls/hr Ceftriaxone Sodium 2 gm/ (Dextrose) 100 mls @ 100 mls/hr IVPB DAILY [facility]; Protocol Morphine Sulfate (Morphine Sulfate) 2 mg IVPUSH Q4H PRN PRN Reason: PAIN LEVEL 1-5 Laboratory Results - last 24 hr 11/11/17 11/14/17 11/14/17 06:15 16:40 16:40 WBC 5.6 Corrected WBC (auto) RBC 3.77 L Hgb 11.3 L Hct 32.6 L MCV 86.6 MCH 30.1 MCHC 34.7 RDW 14.1 Plt Count 60 L D MPV 11.6 H Absolute Neuts (auto) 3.0 Neutrophils % 54.0 Neutrophils % (Manual) Band Neutrophils % Lymphocytes % 34.4 Lymphocytes % (Manual) Monocytes % 10.5 H Monocytes % (Manual) Eosinophils % 0.3 Eosinophils % (Manual) Basophils % 0.8 Basophils % (Manual) Myelocytes % (Man) Promyelocytes % (Man) Blast Cells % (Manual) Nucleated RBC % 0 Metamyelocytes Hypochromia Platelet Estimate Polychromasia Poikilocytosis Anisocytosis Microcytosis Macrocytosis Retic Count Sodium 133 L Potassium 3.8 Chloride 96 L Carbon Dioxide 27 Anion Gap 10 BUN 9 Creatinine 0.5 L Creat Clearance w eGFR > 60 Random Glucose 141 H D Calcium 7.6 L Total Bilirubin 1.7 H Direct Bilirubin AST 217 H ALT 235 H Alkaline Phosphatase 141 H LD Total 1275 H Creatine Kinase Total Protein 6.5 Albumin 2.6 L EBV DNA (PCR) 630 EBV DNA Quant PCR log10 2.799 11/14/17 11/15/17 11/15/17 16:40 05:30 05:30 WBC 6.1 Corrected WBC (auto) 24.80 RBC 3.54 L Hgb 10.7 L Hct 30.6 L MCV 86.4 MCH 30.1 MCHC 34.9 RDW 13.7 Plt Count 54 L MPV 11.9 H Absolute Neuts (auto) 3.1 Neutrophils % 50.0 Neutrophils % (Manual) 37.0 L D Band Neutrophils % 15.0 Lymphocytes % 35.8 Lymphocytes % (Manual) 25.0 Monocytes % 13.2 H Monocytes % (Manual) 12 H D Eosinophils % 0.2 Eosinophils % (Manual) 1.0 Basophils % 0.8 Basophils % (Manual) 0.0 Myelocytes % (Man) 6 H D Promyelocytes % (Man) 0 Blast Cells % (Manual) 1 H D Nucleated RBC % 0 Metamyelocytes 0 Hypochromia 0 Platelet Estimate Decreased Polychromasia 0 Poikilocytosis 1+ Anisocytosis 3+ Microcytosis 3+ Macrocytosis 0 Retic Count Sodium 133 L Potassium 4.0 Chloride 97 L Carbon Dioxide 25 Anion Gap 11 BUN 8 Creatinine 0.4 L Creat Clearance w eGFR > 60 Random Glucose 95 D Calcium 7.5 L Total Bilirubin 1.4 H Direct Bilirubin 0.8 H AST 171 H D ALT 216 H Alkaline Phosphatase 139 H LD Total 1193 H Creatine Kinase 36 L Total Protein 6.3 L Albumin 2.5 L EBV DNA (PCR) EBV DNA Quant PCR log10 11/15/17 11:30 WBC Corrected WBC (auto) RBC Hgb Hct MCV MCH MCHC RDW Plt Count MPV Absolute Neuts (auto) Neutrophils % Neutrophils % (Manual) Band Neutrophils % Lymphocytes % Lymphocytes % (Manual) Monocytes % Monocytes % (Manual) Eosinophils % Eosinophils % (Manual) Basophils % Basophils % (Manual) Myelocytes % (Man) Promyelocytes % (Man) Blast Cells % (Manual) Nucleated RBC % Metamyelocytes Hypochromia Platelet Estimate Polychromasia Poikilocytosis Anisocytosis Microcytosis Macrocytosis Retic Count 1.12 D Sodium Potassium Chloride Carbon Dioxide Anion Gap BUN Creatinine Creat Clearance w eGFR Random Glucose Calcium Total Bilirubin Direct Bilirubin AST ALT Alkaline Phosphatase LD Total Creatine Kinase Total Protein Albumin EBV DNA (PCR) EBV DNA Quant PCR log10 Microbiology 11/14/17 20:45 Blood - Peripheral Venous Blood Parasites Smear - Final Babesia Species 11/10/17 09:48 Blood - Peripheral Venous Blood Culture - Final NO GROWTH AFTER 5 DAYS INCUBATION 11/10/17 09:30 Blood - Peripheral Venous Blood Culture - Final NO GROWTH AFTER 5 DAYS INCUBATION 11/13/17 12:04 Blood - Peripheral Venous Blood Parasites Smear - Final Babesia Species 11/12/17 06:00 Blood - Peripheral Venous Blood Parasites Smear - Final Babesia Species 11/11/17 06:15 Blood - Peripheral Venous Blood Parasites Smear - Final Babesia Species 11/10/17 09:30 Urine - Urine Clean Catch Urine Culture - Final NO GROWTH OBTAINED 11/10/17 09:46 Nasopharyngeal Swab Influenza Types A,B Antigen - Final 11/10/17 09:46 Nasopharyngeal Swab - Final ASSESSMENT AND PLAN: 32yo M with babesiosis, abnormal LFts and persistent fevers. -Sepsis due to babesiosis -worsening headache today -Bandemia -Abnormal LFTs, rising, ?Babesiosis, vs coinfection with tick borne illness vs medication induced, improving. -Splenomegaly with ?surrounding fluid, stable H/h. ?From babesiosis, also positive EBV PCR -Anemia/thrombocytopenia Plan: Parasitemia clearing, LFTs improved. Persistent fevers. Today with worsening headache. ID input noted. Emperic Ceftriaxone. LP, to sent Lyme PCR. Will likely need platelets transfusion for LP. Ceftriaxine emperic day 1, placed by ID. EBV/CMV PCR positive, ?significance. FOllow up Lyme serology. Atovaquone/Doxycycline/Azithromycin day 4. Abdominal US noted. Follow up CT chest. Hematology input noted. GI input noted. Hold Tylenol or NSAIDs, morphine prn for pain for now. Follow up hep panel, lyme/Ehrlichia serology. DVTPPx with SCDs given thrombocytopenia. Plan discussed with patient in detail, all questions answered. Discuss with ID Dr. Simmons and IR. Total time spent in patient care and visit, co-ordination of care with ID, 35 min.
--- NOTE | 2017-11-15 14:28 | PN ---
Physical Exam: SUBJECTIVE: Patient seen and examined at bedside. complains of headache. OBJECTIVE: Vital Signs Period Temp Pulse Resp BP Sys/Shah Pulse Ox Last 24 Hr 98.1 F-101.8 F 86-115 18-20 106-130/62-74 97 Gen: NAD HEENT: Moist membranes, NCAT, PERRL, EOMI Neck: supple no jvd Cardio: rrr, norm s1s2, no m/r/g Lungs: CTA b/l Abd: soft, nontender, norm bs, no guarding ext: 2+ pulses, no edema Laboratory Results - last 24 hr 11/11/17 11/14/17 11/14/17 06:15 16:40 16:40 WBC 5.6 Corrected WBC (auto) RBC 3.77 L Hgb 11.3 L Hct 32.6 L MCV 86.6 MCH 30.1 MCHC 34.7 RDW 14.1 Plt Count 60 L D MPV 11.6 H Absolute Neuts (auto) 3.0 Neutrophils % 54.0 Neutrophils % (Manual) Band Neutrophils % Lymphocytes % 34.4 Lymphocytes % (Manual) Monocytes % 10.5 H Monocytes % (Manual) Eosinophils % 0.3 Eosinophils % (Manual) Basophils % 0.8 Basophils % (Manual) Myelocytes % (Man) Promyelocytes % (Man) Blast Cells % (Manual) Nucleated RBC % 0 Metamyelocytes Hypochromia Platelet Estimate Polychromasia Poikilocytosis Anisocytosis Microcytosis Macrocytosis Retic Count PT with INR INR Sodium 133 L Potassium 3.8 Chloride 96 L Carbon Dioxide 27 Anion Gap 10 BUN 9 Creatinine 0.5 L Creat Clearance w eGFR > 60 Random Glucose 141 H D Calcium 7.6 L Total Bilirubin 1.7 H Direct Bilirubin AST 217 H ALT 235 H Alkaline Phosphatase 141 H LD Total 1275 H Creatine Kinase Total Protein 6.5 Albumin 2.6 L CMV DNA Qual PCR Negative EBV DNA (PCR) 630 EBV DNA Quant PCR log10 2.799 11/14/17 11/15/17 11/15/17 16:40 05:30 05:30 WBC 6.1 Corrected WBC (auto) 24.80 RBC 3.54 L Hgb 10.7 L Hct 30.6 L MCV 86.4 MCH 30.1 MCHC 34.9 RDW 13.7 Plt Count 54 L MPV 11.9 H Absolute Neuts (auto) 3.1 Neutrophils % 50.0 Neutrophils % (Manual) 37.0 L D Band Neutrophils % 15.0 Lymphocytes % 35.8 Lymphocytes % (Manual) 25.0 Monocytes % 13.2 H Monocytes % (Manual) 12 H D Eosinophils % 0.2 Eosinophils % (Manual) 1.0 Basophils % 0.8 Basophils % (Manual) 0.0 Myelocytes % (Man) 6 H D Promyelocytes % (Man) 0 Blast Cells % (Manual) 1 H D Nucleated RBC % 0 Metamyelocytes 0 Hypochromia 0 Platelet Estimate Decreased Polychromasia 0 Poikilocytosis 1+ Anisocytosis 3+ Microcytosis 3+ Macrocytosis 0 Retic Count PT with INR INR Sodium 133 L Potassium 4.0 Chloride 97 L Carbon Dioxide 25 Anion Gap 11 BUN 8 Creatinine 0.4 L Creat Clearance w eGFR > 60 Random Glucose 95 D Calcium 7.5 L Total Bilirubin 1.4 H Direct Bilirubin 0.8 H AST 171 H D ALT 216 H Alkaline Phosphatase 139 H LD Total 1193 H Creatine Kinase 36 L Total Protein 6.3 L Albumin 2.5 L CMV DNA Qual PCR EBV DNA (PCR) EBV DNA Quant PCR log10 11/15/17 11/15/17 11:30 12:45 WBC Corrected WBC (auto) RBC Hgb Hct MCV MCH MCHC RDW Plt Count MPV Absolute Neuts (auto) Neutrophils % Neutrophils % (Manual) Band Neutrophils % Lymphocytes % Lymphocytes % (Manual) Monocytes % Monocytes % (Manual) Eosinophils % Eosinophils % (Manual) Basophils % Basophils % (Manual) Myelocytes % (Man) Promyelocytes % (Man) Blast Cells % (Manual) Nucleated RBC % Metamyelocytes Hypochromia Platelet Estimate Polychromasia Poikilocytosis Anisocytosis Microcytosis Macrocytosis Retic Count 1.12 D PT with INR 14.60 H INR 1.29 H Sodium Potassium Chloride Carbon Dioxide Anion Gap BUN Creatinine Creat Clearance w eGFR Random Glucose Calcium Total Bilirubin Direct Bilirubin AST ALT Alkaline Phosphatase LD Total Creatine Kinase Total Protein Albumin CMV DNA Qual PCR EBV DNA (PCR) EBV DNA Quant PCR log10 Active Medications Generic Name Dose Route Start Last Admin Trade Name Freq PRN Reason Stop Dose Admin Atovaquone 750 mg 11/12/17 08:00 11/15/17 08:21 Mepron - PO 750 mg BIDWM REX Administration Doxycycline Hyclate 100 mg/ 100 mls @ 50 mls/hr 11/12/17 02:15 11/15/17 13:31 Dextrose IVPB 50 mls/hr Q12H REX Administration Sodium Chloride 1,000 mls @ 75 mls/hr 11/11/17 23:37 11/14/17 23:30 Normal Saline - IV 75 mls/hr ASDIR REX Administration Azithromycin 500 mg/ Dextrose 250 mls @ 250 mls/hr 11/12/17 17:00 11/14/17 17 :37 IVPB 250 mls/hr Q24H REX Administration Ceftriaxone Sodium 2 gm/ 100 mls @ 100 mls/hr 11/15/17 11:45 11/15/17 13:20 Dextrose IVPB 100 mls/hr DAILY REX Administration Protocol Morphine Sulfate 2 mg 11/15/17 12:27 Morphine Sulfate IVPUSH Q4H PRN PAIN LEVEL 1-5 ASSESSMENT/PLAN: 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 Pt was found to have sepsis 2/2 babesiosis. #Sepsis 2/2 Babesiosis -recurrent fevers -headache -ID on board -Heme on board -monitor blood parasite smear -Azithro -Atovaquone -Doxy - empiric coverage of Lyme, Anaplasmosis -parasite labs pending -Chest CT pending #? Hemolysis -Hb stable -LD elevated but stabilizing -T bili & d bili elevated #Transaminitis -likely 2/2 babesiosis -GI consult: rec monitoring LFTs while pt on hepatotoxic agents -US revealed borderline hepatomegally and splenomegally with small amount of perisplenic fluid #Thrombocytopenia -2/2 babesiosis -Heme on board -Avoid NSAIDs please #FEN -NS -hyponatremia -Regular diet #PPx -SCDs #Dispo -Admitted to [facility] for babesiosis Jaron Craig MD PGY-1 Visit type - Emergency Visit Emergency Visit: No - New Patient This patient is new to me today: No - Critical Care Critical Care patient: No - Discharge Referral Referred to [facility] Med P.C.: No
--- NOTE | 2017-11-15 16:46 | PN ---
Progress Note (short form) - Note Progress Note: seen and examined. AM-- had headache as per chart and d/w Later on my rounds, headache present, but better than the am Constitutional: Yes: Other (febrile, looks fatigued) Eyes: Yes: Conjunctiva Clear HENT: Yes: Atraumatic, Normocephalic Neck: Yes: Supple Cardiovascular: Yes: Tachycardia Respiratory: Yes: Regular, CTA Bilaterally Gastrointestinal: Yes: Soft Musculoskeletal: Yes: WNL Edema: No Neurological: Yes: Alert Labs: Last Vital Signs Temp Pulse Resp BP Pulse Ox 98.5 F 88 14 116/64 96 11/12/17 08:44 11/12/17 08:44 11/12/17 08:44 11/12/17 08:44 11/11/17 21:00 CBC, BMP 11/12/17 06:00 11/12/17 06:00 Current Medications Generic Name Dose Route Start Last Admin Trade Name Freq PRN Reason Stop Dose Admin Acetaminophen 650 mg 11/11/17 23:37 11/12/17 05:42 Tylenol - PO 650 mg Q4H PRN Administration FEVER Atovaquone 750 mg 11/12/17 08:00 11/12/17 09:31 Mepron - PO 750 mg BIDWM REX Administration Doxycycline Hyclate 100 mg/ 100 mls @ 50 mls/hr 11/12/17 02:15 11/12/17 01:35 Dextrose IVPB 50 mls/hr Q12H REX Administration Sodium Chloride 1,000 mls @ 75 mls/hr 11/11/17 23:37 11/11/17 23:45 Normal Saline - IV 75 mls/hr ASDIR REX Administration Azithromycin 500 mg/ Dextrose 250 mls @ 250 mls/hr 11/12/17 17:00 IVPB Q24H REX Babesiosis Transaminitis Thrombocytopenia Fever Platelets prior to LP. give one prior and one during on-call please confirm from IR/neuro the platelet threshold prior to procedure. CTH done on admission. repeat CBC d/w resident
[2017-11-15] MEDS: AZITHROMYCIN IVPB 500 MG in DEXTROSE 5%-WATER - 250 ML IVPB SCH (18:10)
[2017-11-15 18:37] LABS: BASO % 0.9 % (0-2.0); EOS % 1.1 % (0-4.5); HEMATOCRIT 31.7 % (35.4-49); HEMOGLOBIN 10.9 GM/dL (11.7-16.9); MCH 29.9 pg (25.7-33.7); MCHC 34.3 g/dl (32.0-35.9); MEAN CELL VOLUME 86.9 fl (80-96); MEAN PLT VOLUME 12.2 fl (7.5-11.1); MONO % 15.3 % (3.8-10.2); NEUT % 41.7 % (42.8-82.8); PLATELET COUNT 69 K/MM3 (134-434); RBC 3.65 M/mm3 (4.00-5.60)
[2017-11-15 20:25] LABS: ANISOCYTOSIS 3+; MACROCYTOSIS 2+
[2017-11-15 20:26] LABS: PLATELET ESTIMATE DECREASED
[2017-11-16] MEDS ORDERED: PT OWN MED DRAWER 7, Y5N ONE (00:48)
[2017-11-16] MEDS: MORPHINE SULFATE 2 MG/ML VIAL IVPUSH PRN ×2 (03:02→09:46)
[2017-11-16] MEDS: DOXYCYCLINE INJECTION 100 MG in DEXTROSE 5%-WATER - 100 ML IVPB SCH (03:03)
[2017-11-16 06:13] LABS: BASO % 0.8 % (0-2.0); HEMATOCRIT 27.5 % (35.4-49); HEMOGLOBIN 9.6 GM/dL (11.7-16.9); LYMPH % 37.6 % (8-40); MCHC 34.8 g/dl (32.0-35.9); MEAN CELL VOLUME 86.2 fl (80-96); MEAN PLT VOLUME 11.1 fl (7.5-11.1); MONO % 14.5 % (3.8-10.2); NEUT % 46.1 % (42.8-82.8); PLATELET COUNT 63 K/MM3 (134-434); RBC 3.18 M/mm3 (4.00-5.60); WHITE BLOOD COUNT 5.2 K/mm3 (4.0-10.0)
[2017-11-16 06:30] LABS: INR 1.26 (0.82-1.09); PROTHROMBIN TIME (PATIENT) 14.2 SEC (9.7-13.0)
[2017-11-16 06:56] LABS: CHLORIDE 103 mmol/L (98-107); POTASSIUM 4.3 mmol/L (3.5-5.1); SODIUM 136 mmol/L (136-145)
[2017-11-16 07:06] LABS: ALBUMIN 2.3 g/dl (3.4-5.0); ALK PHOS 124 U/L (45-117); ANION GAP 6 (8-16); BILIRUBIN,DIRECT 0.4 mg/dL (0.0-0.2); BILIRUBIN,TOTAL 0.8 mg/dL (0.2-1.0); BLOOD UREA NITROGEN 8 mg/dL (7-18); CALCIUM 7.8 mg/dL (8.5-10.1); CO2 27 mmol/L (21-32); CREATININE 0.5 mg/dL (0.7-1.3); GLUCOSE,RANDOM 101 mg/dL (74-106); SGOT/AST 133 U/L (15-37); SGPT/ALT 198 U/L (12-78)
--- NOTE | 2017-11-16 07:13 | PN ---
Physical Exam: SUBJECTIVE: Patient seen and examined at bedside. Complains of the same headache. He was given morphine last night (avoiding NSAIDs due to thrombocytopenia and upcoming procedure and avoiding tylenol in setting of transaminitis). No other complaints. OBJECTIVE: Vital Signs Period Temp Pulse Resp BP Sys/Shah Pulse Ox Last 24 Hr 98.1 F-99.1 F 74-98 18-19 108-122/55-72 97-99 Gen: NAD HEENT: Moist membranes, NCAT, PERRL, EOMI Neck: mild nuchal discomfort. no jvd Cardio: rrr, norm s1s2, no m/r/g Lungs: CTA b/l Abd: soft, nontender, norm bs, no guarding ext: 2+ pulses, no edema Laboratory Results - last 24 hr 11/11/17 11/15/17 11/15/17 06:15 05:30 05:30 WBC 6.1 Corrected WBC (auto) 24.80 RBC 3.54 L Hgb 10.7 L Hct 30.6 L MCV 86.4 MCH 30.1 MCHC 34.9 RDW 13.7 Plt Count 54 L MPV 11.9 H Absolute Neuts (auto) 3.1 Total Counted Neutrophils % 50.0 Neutrophils % (Manual) 37.0 L D Band Neutrophils % 15.0 Lymphocytes % 35.8 Lymphocytes % (Manual) 25.0 Monocytes % 13.2 H Monocytes % (Manual) 12 H D Eosinophils % 0.2 Eosinophils % (Manual) 1.0 Basophils % 0.8 Basophils % (Manual) 0.0 Myelocytes % (Man) 6 H D Promyelocytes % (Man) 0 Blast Cells % (Manual) 1 H D Nucleated RBC % 0 Metamyelocytes 0 Hypochromia 0 Platelet Estimate Decreased Platelet Comment Polychromasia 0 Poikilocytosis 1+ Anisocytosis 3+ Microcytosis 3+ Macrocytosis 0 Retic Count PT with INR INR Sodium 133 L Potassium 4.0 Chloride 97 L Carbon Dioxide 25 Anion Gap 11 BUN 8 Creatinine 0.4 L Creat Clearance w eGFR > 60 Random Glucose 95 D Calcium 7.5 L Total Bilirubin 1.4 H Direct Bilirubin 0.8 H AST 171 H D ALT 216 H Alkaline Phosphatase 139 H LD Total 1193 H Total Protein 6.3 L Albumin 2.5 L CMV DNA Qual PCR Negative Blood Type Antibody Screen 06/11/15/17 11/15/17 11:30 12:45 15:23 WBC Corrected WBC (auto) RBC Hgb Hct MCV MCH MCHC RDW Plt Count MPV Absolute Neuts (auto) Total Counted Neutrophils % Neutrophils % (Manual) Band Neutrophils % Lymphocytes % Lymphocytes % (Manual) Monocytes % Monocytes % (Manual) Eosinophils % Eosinophils % (Manual) Basophils % Basophils % (Manual) Myelocytes % (Man) Promyelocytes % (Man) Blast Cells % (Manual) Nucleated RBC % Metamyelocytes Hypochromia Platelet Estimate Platelet Comment Polychromasia Poikilocytosis Anisocytosis Microcytosis Macrocytosis Retic Count 1.12 D PT with INR 14.60 H INR 1.29 H Sodium Potassium Chloride Carbon Dioxide Anion Gap BUN Creatinine Creat Clearance w eGFR Random Glucose Calcium Total Bilirubin Direct Bilirubin AST ALT Alkaline Phosphatase LD Total Total Protein Albumin CMV DNA Qual PCR Blood Type O POSITIVE Antibody Screen Negative 11/15/17 11/15/17 11/16/17 18:05 18:05 05:30 WBC 5.0 5.2 Corrected WBC (auto) RBC 3.65 L 3.18 L Hgb 10.9 L 9.6 L D Hct 31.7 L 27.5 L MCV 86.9 86.2 MCH 29.9 30.0 MCHC 34.3 34.8 RDW 14.0 14.0 Plt Count 69 L D 63 L MPV 12.2 H 11.1 Absolute Neuts (auto) 2.1 2.4 Total Counted 100 Neutrophils % 41.7 L 46.1 Neutrophils % (Manual) 35.0 L Band Neutrophils % 10.0 Lymphocytes % 41.0 H 37.6 Lymphocytes % (Manual) 40.0 D Monocytes % 15.3 H 14.5 H Monocytes % (Manual) 10 Eosinophils % 1.1 D 1.0 Eosinophils % (Manual) 1.0 Basophils % 0.9 0.8 Basophils % (Manual) Myelocytes % (Man) 1 D Promyelocytes % (Man) Blast Cells % (Manual) Nucleated RBC % 0 0 Metamyelocytes Hypochromia 1+ Platelet Estimate Decreased Platelet Comment Few large platelets Polychromasia Poikilocytosis 1+ Anisocytosis 3+ Microcytosis 2+ Macrocytosis 2+ Retic Count PT with INR INR Sodium Potassium Chloride Carbon Dioxide Anion Gap BUN Creatinine Creat Clearance w eGFR Random Glucose Calcium Total Bilirubin Direct Bilirubin AST ALT Alkaline Phosphatase LD Total Total Protein Albumin CMV DNA Qual PCR Blood Type O POSITIVE Antibody Screen 11/16/17 05:30 WBC Corrected WBC (auto) RBC Hgb Hct MCV MCH MCHC RDW Plt Count MPV Absolute Neuts (auto) Total Counted Neutrophils % Neutrophils % (Manual) Band Neutrophils % Lymphocytes % Lymphocytes % (Manual) Monocytes % Monocytes % (Manual) Eosinophils % Eosinophils % (Manual) Basophils % Basophils % (Manual) Myelocytes % (Man) Promyelocytes % (Man) Blast Cells % (Manual) Nucleated RBC % Metamyelocytes Hypochromia Platelet Estimate Platelet Comment Polychromasia Poikilocytosis Anisocytosis Microcytosis Macrocytosis Retic Count PT with INR 14.20 H INR 1.26 H Sodium Potassium Chloride Carbon Dioxide Anion Gap BUN Creatinine Creat Clearance w eGFR Random Glucose Calcium Total Bilirubin Direct Bilirubin AST ALT Alkaline Phosphatase LD Total Total Protein Albumin CMV DNA Qual PCR Blood Type Antibody Screen Active Medications Generic Name Dose Route Start Last Admin Trade Name Freq PRN Reason Stop Dose Admin Atovaquone 750 mg 11/12/17 08:00 11/15/17 18:09 Mepron - PO 750 mg BIDWM REX Administration Doxycycline Hyclate 100 mg/ 100 mls @ 50 mls/hr 11/12/17 02:15 11/16/17 03:03 Dextrose IVPB 50 mls/hr Q12H REX Administration Sodium Chloride 1,000 mls @ 75 mls/hr 11/11/17 23:37 11/14/17 23:30 Normal Saline - IV 75 mls/hr ASDIR REX Administration Azithromycin 500 mg/ Dextrose 250 mls @ 250 mls/hr 11/12/17 17:00 11/15/17 18 :10 IVPB 250 mls/hr Q24H REX Administration Ceftriaxone Sodium 2 gm/ 100 mls @ 100 mls/hr 11/15/17 11:45 11/15/17 13:20 Dextrose IVPB 100 mls/hr DAILY REX Administration Protocol Morphine Sulfate 2 mg 11/15/17 12:27 11/16/17 03:02 Morphine Sulfate IVPUSH 2 mg Q4H PRN Administration PAIN LEVEL 1-5 ASSESSMENT/PLAN: 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 Pt was found to have sepsis 2/2 babesiosis. #Sepsis 2/2 Babesiosis -recurrent fevers -headache -ID on board -Heme on board -monitor blood parasite smear -Azithro -Atovaquone -Doxy - empiric coverage of Lyme, Anaplasmosis -serology pending -Chest CT sig for hepatosplenomegally #r/o Meningitis -Pt had headache and vague posterior neck discomfort on [id number] -Neurology consulted for LP -LP attempted. No fluid was retrieved. Procedure aborted due to bleeding. #? Hemolysis -Hb stable -LD elevated but stabilizing -T bili & d bili elevated -Increased retic count #Transaminitis -likely 2/2 babesiosis -GI consult: rec monitoring LFTs while pt on hepatotoxic agents -US revealed borderline hepatomegally and splenomegally with small amount of perisplenic fluid #Thrombocytopenia -2/2 babesiosis -Heme on board -Avoid NSAIDs please -Platelets were given prior to LP #FEN -NS -hyponatremia -Regular diet #PPx -SCDs #Dispo -Admitted to [facility] for babesiosis Jaron Craig MD PGY-1 Visit type - Emergency Visit Emergency Visit: No - New Patient This patient is new to me today: No - Critical Care Critical Care patient: No - Discharge Referral Referred to [facility] Med P.C.: No
--- NOTE | 2017-11-16 07:20 | PN ---
Teaching Attending Note Name of Resident: Jaron Craig ATTENDING PHYSICIAN STATEMENT I saw and evaluated the patient. I reviewed the resident's note and discussed the case with the resident. I agree with the resident's findings and plan as documented with exceptions below. SUBJECTIVE: Patient seen and examined. some low back discomfort from recent LP, no fevers/ headache or abdominal pain today. OBJECTIVE: Vital Signs Period Temp Pulse Resp BP Sys/Shah Pulse Ox Last 24 Hr 98.1 F-99.1 F 74-98 18-19 108-122/55-72 97-99 Intake & Output 11/13/17 11/14/17 11/15/17 11/16/17 23:59 23:59 23:59 23:59 Intake Total 2500 1980 1810 1480 Output Total 400 500 400 Balance 2500 1580 1310 1080 General: lying in bed, mild discomfort from recent LP Chest: CTAB, no rales or wheezing Abdomen: soft, NT, ND, positive bowel sounds Neck: soft, supple Neuro: AAOX3, power 5/5, minimal tenderness at LP site Home Medications Medication Instructions Recorded NK [No Known Home Medication] 04/26/16 Active Medications Atovaquone (Mepron -) 750 mg PO BIDWM [facility] Last Admin: 11/15/17 18:09 Dose: 750 mg Doxycycline Hyclate 100 mg/ (Dextrose) 100 mls @ 50 mls/hr IVPB Q12H [facility] Last Admin: 11/16/17 03:03 Dose: 50 mls/hr Sodium Chloride (Normal Saline -) 1,000 mls @ 75 mls/hr IV ASDIR [facility] Last Admin: 11/14/17 23:30 Dose: 75 mls/hr Azithromycin 500 mg/ Dextrose 250 mls @ 250 mls/hr IVPB Q24H [facility] Last Admin: 11/15/17 18:10 Dose: 250 mls/hr Ceftriaxone Sodium 2 gm/ (Dextrose) 100 mls @ 100 mls/hr IVPB DAILY [facility]; Protocol Last Admin: 11/15/17 13:20 Dose: 100 mls/hr Morphine Sulfate (Morphine Sulfate) 2 mg IVPUSH Q4H PRN PRN Reason: PAIN LEVEL 1-5 Last Admin: 11/16/17 03:02 Dose: 2 mg Laboratory Results - last 24 hr 11/11/17 11/15/17 11/15/17 06:15 05:30 05:30 WBC Corrected WBC (auto) 24.80 RBC Hgb Hct MCV MCH MCHC RDW Plt Count MPV Absolute Neuts (auto) Total Counted Neutrophils % Neutrophils % (Manual) 37.0 L D Band Neutrophils % 15.0 Lymphocytes % Lymphocytes % (Manual) 25.0 Monocytes % Monocytes % (Manual) 12 H D Eosinophils % Eosinophils % (Manual) 1.0 Basophils % Basophils % (Manual) 0.0 Myelocytes % (Man) 6 H D Promyelocytes % (Man) 0 Blast Cells % (Manual) 1 H D Nucleated RBC % Metamyelocytes 0 Hypochromia 0 Platelet Estimate Decreased Platelet Comment Polychromasia 0 Poikilocytosis 1+ Anisocytosis 3+ Microcytosis 3+ Macrocytosis 0 Retic Count PT with INR INR Sodium 133 L Potassium 4.0 Chloride 97 L Carbon Dioxide 25 Anion Gap 11 BUN 8 Creatinine 0.4 L Creat Clearance w eGFR > 60 Random Glucose 95 D Calcium 7.5 L Total Bilirubin 1.4 H Direct Bilirubin 0.8 H AST 171 H D ALT 216 H Alkaline Phosphatase 139 H LD Total 1193 H Total Protein 6.3 L Albumin 2.5 L CMV DNA Qual PCR Negative Blood Type Antibody Screen 11/15/17 11/15/17 11/15/17 11:30 12:45 15:23 WBC Corrected WBC (auto) RBC Hgb Hct MCV MCH MCHC RDW Plt Count MPV Absolute Neuts (auto) Total Counted Neutrophils % Neutrophils % (Manual) Band Neutrophils % Lymphocytes % Lymphocytes % (Manual) Monocytes % Monocytes % (Manual) Eosinophils % Eosinophils % (Manual) Basophils % Basophils % (Manual) Myelocytes % (Man) Promyelocytes % (Man) Blast Cells % (Manual) Nucleated RBC % Metamyelocytes Hypochromia Platelet Estimate Platelet Comment Polychromasia Poikilocytosis Anisocytosis Microcytosis Macrocytosis Retic Count 1.12 D PT with INR 14.60 H INR 1.29 H Sodium Potassium Chloride Carbon Dioxide Anion Gap BUN Creatinine Creat Clearance w eGFR Random Glucose Calcium Total Bilirubin Direct Bilirubin AST ALT Alkaline Phosphatase LD Total Total Protein Albumin CMV DNA Qual PCR Blood Type O POSITIVE Antibody Screen Negative 11/15/17 11/15/17 11/16/17 18:05 18:05 05:30 WBC 5.0 5.2 Corrected WBC (auto) RBC 3.65 L 3.18 L Hgb 10.9 L 9.6 L D Hct 31.7 L 27.5 L MCV 86.9 86.2 MCH 29.9 30.0 MCHC 34.3 34.8 RDW 14.0 14.0 Plt Count 69 L D 63 L MPV 12.2 H 11.1 Absolute Neuts (auto) 2.1 2.4 Total Counted 100 Neutrophils % 41.7 L 46.1 Neutrophils % (Manual) 35.0 L Band Neutrophils % 10.0 Lymphocytes % 41.0 H 37.6 Lymphocytes % (Manual) 40.0 D Monocytes % 15.3 H 14.5 H Monocytes % (Manual) 10 Eosinophils % 1.1 D 1.0 Eosinophils % (Manual) 1.0 Basophils % 0.9 0.8 Basophils % (Manual) Myelocytes % (Man) 1 D Promyelocytes % (Man) Blast Cells % (Manual) Nucleated RBC % 0 0 Metamyelocytes Hypochromia 1+ Platelet Estimate Decreased Platelet Comment Few large platelets Polychromasia Poikilocytosis 1+ Anisocytosis 3+ Microcytosis 2+ Macrocytosis 2+ Retic Count PT with INR INR Sodium Potassium Chloride Carbon Dioxide Anion Gap BUN Creatinine Creat Clearance w eGFR Random Glucose Calcium Total Bilirubin Direct Bilirubin AST ALT Alkaline Phosphatase LD Total Total Protein Albumin CMV DNA Qual PCR Blood Type O POSITIVE Antibody Screen 11/16/17 11/16/17 05:30 05:30 WBC Corrected WBC (auto) RBC Hgb Hct MCV MCH MCHC RDW Plt Count MPV Absolute Neuts (auto) Total Counted Neutrophils % Neutrophils % (Manual) Band Neutrophils % Lymphocytes % Lymphocytes % (Manual) Monocytes % Monocytes % (Manual) Eosinophils % Eosinophils % (Manual) Basophils % Basophils % (Manual) Myelocytes % (Man) Promyelocytes % (Man) Blast Cells % (Manual) Nucleated RBC % Metamyelocytes Hypochromia Platelet Estimate Platelet Comment Polychromasia Poikilocytosis Anisocytosis Microcytosis Macrocytosis Retic Count PT with INR 14.20 H INR 1.26 H Sodium 136 Potassium 4.3 Chloride 103 Carbon Dioxide 27 Anion Gap 6 L BUN 8 Creatinine 0.5 L D Creat Clearance w eGFR > 60 Random Glucose 101 Calcium 7.8 L Total Bilirubin 0.8 D Direct Bilirubin 0.4 H D AST 133 H D ALT 198 H Alkaline Phosphatase 124 H LD Total Total Protein 6.0 L Albumin 2.3 L CMV DNA Qual PCR Blood Type Antibody Screen Microbiology 11/14/17 20:45 Blood - Peripheral Venous Blood Parasites Smear - Final Babesia Species 11/10/17 09:48 Blood - Peripheral Venous Blood Culture - Final NO GROWTH AFTER 5 DAYS INCUBATION 11/10/17 09:30 Blood - Peripheral Venous Blood Culture - Final NO GROWTH AFTER 5 DAYS INCUBATION 11/13/17 12:04 Blood - Peripheral Venous Blood Parasites Smear - Final Babesia Species 11/12/17 06:00 Blood - Peripheral Venous Blood Parasites Smear - Final Babesia Species 11/11/17 06:15 Blood - Peripheral Venous Blood Parasites Smear - Final Babesia Species 11/10/17 09:30 Urine - Urine Clean Catch Urine Culture - Final NO GROWTH OBTAINED 11/10/17 09:46 Nasopharyngeal Swab Influenza Types A,B Antigen - Final 11/10/17 09:46 Nasopharyngeal Swab - Final ASSESSMENT AND PLAN: 32yo M with babesiosis, abnormal LFts and persistent fevers. -Sepsis due to babesiosis -Bandemia, resolved -Headache, resolved -Abnormal LFTs, rising, ?Babesiosis, vs coinfection with tick borne illness vs medication induced, improving. -Splenomegaly with ?surrounding fluid, stable H/h. ?From babesiosis, also positive EBV PCR -Anemia/thrombocytopenia Plan: Attempted LP earlier by neurology. However, Fevers resolved, parasitemia clearing, LFTs improved. Headache resolved. Discussed with Dr. Simmons. d/c ceftriaxone, monitor for 24 hours. If no new concerns, plan for d/c on atovaquone/azithromycin/doxycycline as meningitis unlikely. EBV/CMV PCR positive, ?significance, likely old infection as discussed with ID. Follow up Lyme serology. Atovaquone/Doxycycline/Azithromycin day 5. Abdominal US noted. CT chest noted, hepatosplenomegaly. Hematology input noted. GI input noted. Hold Tylenol or NSAIDs, morphine prn for pain for now. Hep panel noted. DVTPPx with SCDs given thrombocytopenia. Dispo planning in 24 hours if continues to improve. Plan discussed with patient in detail, all questions answered.
--- NOTE | 2017-11-16 09:35 | CONSULT ---
Consult - text type - Consultation Consultation Note: Neurology CHIEF COMPLAINT: Fevers and Headache HISTORY OF PRESENT ILLNESS: 32 y/o M with no PMH (has no medical follow up) presented to ER for 5 day history of nausea, vomiting (non-bloody), headache, subjective fevers, generalized weakness. Reportedly with holocephalic headache, denied neck stiffness initially, with photophobia. He has been vomiting 2-3 times per day. He tried taking advil and tylenol over this time with no relief. Pt came from [place] 14 years ago. Works as [employer]. Lives at home with and his 1 child ([address] y[address] head completed and without acute changes. ID following and concern for Babeisiosis. Spoke with hospitalist and they discussed possible Lyme meningitis and asked for LP. LP attempted at bedside, but multiple attempts unsuccessful and after 20 mins with bleeding visualized, procedure terminated without fluid withdrawal. LP under fluoro had been ordered and would recommend continuing with that plan. Recent Travel: denies PAST MEDICAL HISTORY: no medical hx PAST SURGICAL HISTORY: no surgical hx Social History: Smoking:denies Alcohol: 1-2 beers per week Drugs: denies Family History: states family has no medical problems Allergies No Known Allergies Allergy (Verified 04/26/16 10:11) HOME MEDICATIONS: Home Medications Medication Instructions Recorded NK [No Known Home Medication] 04/26/16 REVIEW OF SYSTEMS CONSTITUTIONAL: +fever, generalized weakenss HEENT: Absent: throat pain, visual changes, photophobia CARDIOVASCULAR: Absent: chest pain, peripheral edema RESPIRATORY: Absent: cough, shortness of breath, dyspnea with exertion GASTROINTESTINAL: +abd pain, nausea, vomiting Absent: diarrhea, constipation, melena, hematochezia GENITOURINARY: +incomplete emptying, foul-smelling urine, mild dysuria Absent: penile discharge SKIN: Absent: rash HEMATOLOGIC/IMMUNOLOGIC: Absent: easy bleeding, NEUROLOGIC: +headache PHYSICAL EXAMINATION Vital Signs Temperature 98.1 F 11/16/17 06:00 Pulse Rate 86 11/16/17 06:00 Respiratory Rate 18 11/16/17 06:00 Blood Pressure 108/71 11/16/17 06:00 O2 Sat by Pulse Oximetry (%) 99 11/15/17 21:00 GENERAL: Awake, alert, and fully oriented, in no acute distress. Warm to touch. HEAD: Normal with no signs of trauma. EYES: Pupils equal, round and reactive to light, extraocular movements intact, scleral icterus EARS, NOSE, THROAT: Ears normal, nares patent, oropharynx clear without exudates. NECK: Normal range of motion, supple without lymphadenopathy, or masses. LUNGS: Decreased breath sounds at bases otherwise CTA HEART: Regular rate and rhythm, normal S1 and S2 without murmur, rub or gallop. ABDOMEN: Mild suprapubic pain. No hepatosplenomegaly. Normoactive BS. MUSCULOSKELETAL: Normal range of motion at all joints. No CVA tenderness. LOWER EXTREMITIES: 2+ pulses, warm, well-perfused. No peripheral edema. NEUROLOGICAL: Cranial nerves II-XII grossly intact. Normal speech. Moves all extremities equally, sensory intact, Gait not observed. PSYCHIATRIC: Cooperative. Good eye contact. Appropriate mood and affect. SKIN: Warm, dry, no rash. CBCD WBC 5.2 K/mm3 (4.0-10.0) 11/16/17 05:30 RBC 3.18 M/mm3 (4.00-5.60) L 11/16/17 05:30 Hgb 9.6 GM/dL (11.7-16.9) L D 11/16/17 05:30 Hct 27.5 % (35.4-49) L 11/16/17 05:30 MCV 86.2 fl (80-96) 11/16/17 05:30 MCHC 34.8 g/dl (32.0-35.9) 11/16/17 05:30 RDW 14.0 % (11.9-15.9) 11/16/17 05:30 Plt Count 63 K/MM3 (134-434) L 11/16/17 05:30 MPV 11.1 fl (7.5-11.1) 11/16/17 05:30 CMP Sodium 136 mmol/L (136-145) 11/16/17 05:30 Potassium 4.3 mmol/L (3.5-5.1) 11/16/17 05:30 Chloride 103 mmol/L (98-107) 11/16/17 05:30 Carbon Dioxide 27 mmol/L (21-32) 11/16/17 05:30 Anion Gap 6 (8-16) L 11/16/17 05:30 BUN 8 mg/dL (7-18) 11/16/17 05:30 Creatinine 0.5 mg/dL (0.7-1.3) L D 11/16/17 05:30 Creat Clearance w eGFR > 60 (>60) 11/16/17 05:30 Random Glucose 101 mg/dL (74-106) 11/16/17 05:30 Calcium 7.8 mg/dL (8.5-10.1) L 11/16/17 05:30 Total Bilirubin 0.8 mg/dL (0.2-1.0) D 11/16/17 05:30 AST 133 U/L (15-37) H D 11/16/17 05:30 ALT 198 U/L (12-78) H 11/16/17 05:30 Alkaline Phosphatase 124 U/L (45-117) H 11/16/17 05:30 Total Protein 6.0 g/dl (6.4-8.2) L 11/16/17 05:30 Albumin 2.3 g/dl (3.4-5.0) L 11/16/17 05:30 CARDIAC ENZYMES Creatine Kinase 36 IU/L (39-308) L 11/14/17 16:40 Troponin I < 0.02 ng/ml (0.00-0.05) 11/10/17 09:30 Imaging: CXR: No acute patholgy Head CT: negative Abd/Pelvis CT: Bibasilar atelectasis; Borderline splenomegaly; Bladder distension; No acute pathology ASSESSMENT/PLAN: 32 y/o M with no PMH (has no medical follow up) presented to ER for 5 day history of nausea, vomiting (non-bloody), headache, subjective fevers, generalized weakness. Reportedly with holocephalic headache, denied neck stiffness initially, with photophobia. He has been vomiting 2-3 times per day. He tried taking advil and tylenol over this time with no relief. Pt came from [place] 14 years ago. Works as [employer]. Lives at home with and his 1 child ([address] y/o). [address] head completed and without acute changes. ID following and concern for Babeisiosis. Spoke with hospitalist and they discussed possible Lyme meningitis and asked for LP. LP attempted at bedside, but multiple attempts unsuccessful and after 20 mins with bleeding visualized, procedure terminated without fluid withdrawal. LP under fluoro had been ordered and would recommend continuing with that plan. Monitor platelet count, transfuse as needed. Tylenol for headaches, with low platelets, would avoid Ibuprofen, naprosyn, etc. Continue ID followup. Monitor labs, continue IV/PO hydration.
[2017-11-16] MEDS ORDERED: DEXTROSE 5%-WATER 100 ML IVPB ONE (09:43)
--- NOTE | 2017-11-16 09:43 | PROC ---
Procedure Note Procedure: Lumbar puncture procedure note: Patient in agreement with procedure for CSF. Consent obtained. Sterile dressing applied. Left lateral recumbant position obtained. L4/L5 level marked. LP attempted, multiple insertions without fluid. On final insertion, increased bleeding noted. Procedure termination. Patient without neurologic complications from procedure.
[2017-11-16] MEDS: CEFTRIAXONE 2 GM in DEXTROSE 5%-WATER 100 ML IVPB SCH (09:45)
[2017-11-16] MEDS: ATOVAQUONE 750 MG/5 ML SUSPENSION PO SCH ×2 (09:46→17:19)
[2017-11-16] MEDS: SODIUM CHLORIDE 1,000 ML IV SCH ×3 (09:46→23:47)
--- NOTE | 2017-11-16 10:14 | PN ---
Progress Note, Physician Chief Complaint: ID Overall better today and no fever His headache improved though he has spinal discomfort possibly related to unsucccessful attempt at LP - Current Medication List Current Medications: Active Medications Atovaquone (Mepron -) 750 mg PO BIDWM [facility] Last Admin: 11/16/17 09:46 Dose: Not Given Doxycycline Hyclate 100 mg/ (Dextrose) 100 mls @ 50 mls/hr IVPB Q12H [facility] Last Admin: 11/16/17 03:03 Dose: 50 mls/hr Sodium Chloride (Normal Saline -) 1,000 mls @ 75 mls/hr IV ASDIR [facility] Last Admin: 11/16/17 09:46 Dose: 75 mls/hr Azithromycin 500 mg/ Dextrose 250 mls @ 250 mls/hr IVPB Q24H [facility] Last Admin: 11/15/17 18:10 Dose: 250 mls/hr Morphine Sulfate (Morphine Sulfate) 2 mg IVPUSH Q4H PRN PRN Reason: PAIN LEVEL 1-5 Last Admin: 11/16/17 09:46 Dose: 2 mg - Objective Vital Signs: Vital Signs Temperature 98.1 F 11/16/17 06:00 Pulse Rate 86 11/16/17 06:00 Respiratory Rate 18 11/16/17 06:00 Blood Pressure 108/71 11/16/17 06:00 O2 Sat by Pulse Oximetry (%) 99 11/15/17 21:00 Constitutional: Yes: Well Nourished, No Distress HENT: Yes: WNL, Atraumatic Neck: Yes: Supple Cardiovascular: Yes: S1, S2 Respiratory: Yes: WNL, Regular, CTA Bilaterally Gastrointestinal: Yes: WNL, Normal Bowel Sounds, Soft Labs: CBC, BMP 11/16/17 05:30 11/16/17 05:30 INR, PTT INR 1.26 (0.82-1.09) H 11/16/17 05:30 Problem List - Problems (1) Elevated LFTs Code(s): R94.5 - ABNORMAL RESULTS OF LIVER FUNCTION STUDIES (2) Fever, unknown origin Code(s): R50.9 - FEVER, UNSPECIFIED (3) Thrombocytopenia Code(s): D69.6 - THROMBOCYTOPENIA, UNSPECIFIED Assessment/Plan Laboratory Tests 11/11/17 11/16/17 11/16/17 06:15 05:30 05:30 WBC 5.2 Hgb 9.6 L D Hct 27.5 L Plt Count 63 L BUN 8 Creatinine 0.5 L D Alkaline Phosphatase 124 H Lyme Antibody Value Pending Lyme IgM Quantitation Pending Assessment Looks well enough with no fever that we could consider discharging him to finish treatment at home Plan Would not commit to shelter IV Ceftriaxone as his neck stiffness absent today and we have no LP documentation of meningitis NO fever today Known diagnosis of Babesiosis. Serology likely past infection CMV or EBV. Stop Ceftriaxone Doxycycline 100 bid 14 days Babesia treatment 10 days Observe today after LP Discussed with Dr Blanchard Check Lyme serology
[2017-11-16 10:57] LABS: BASO % 0.8 % (0-2.0); EOS % 0.6 % (0-4.5); HEMATOCRIT 27.4 % (35.4-49); HEMOGLOBIN 9.5 GM/dL (11.7-16.9); LYMPH % 28.6 % (8-40); MCH 29.9 pg (25.7-33.7); MCHC 34.6 g/dl (32.0-35.9); MEAN CELL VOLUME 86.5 fl (80-96); MEAN PLT VOLUME 10.5 fl (7.5-11.1); MONO % 14.6 % (3.8-10.2); NEUT % 55.4 % (42.8-82.8); PLATELET COUNT 89 K/MM3 (134-434); RBC 3.17 M/mm3 (4.00-5.60); RDW 14.2 % (11.9-15.9); WHITE BLOOD COUNT 6.4 K/mm3 (4.0-10.0)
[2017-11-16 11:33] LABS: LDH 988 U/L (87-241)
[2017-11-16] MEDS: AZITHROMYCIN 250 MG TABLET PO SCH (12:20)
--- NOTE | 2017-11-16 15:11 | HOSP ---
Physical Examination Vital Signs: Vital Signs Temperature 98.6 F 11/16/17 10:00 Pulse Rate 93 H 11/16/17 10:00 Respiratory Rate 20 11/16/17 10:00 Blood Pressure 121/67 11/16/17 10:00 O2 Sat by Pulse Oximetry (%) 99 11/16/17 09:00 Labs: CBC, BMP 11/16/17 10:20 11/16/17 05:30 Hospitalist Encounter Assessment: Was called to see pt in radiology because pt was AAO to person only. On seeing pt, he exhibited a blank stare and lip smacking. Initially was reactive to voice but was not making eye contact. Was responding slowly to questions. Over a period of approximately 2 minutes, pt was more lucid, was making eye contact, and following commands. Exam: Vital signs within normal limits. BP 125 systolic, R in 70s. Pupils equal round and reactive. H-test normal. sensation intact throughout. Strength 5/5 in b/l vice president medical affairs, elbow flexion/extension, hip knee and ankle flexion/extension. By the end of the 1st neuro exam, pt was AAOx3. Stat head CT was ordered and reviewed with radiologist and found to be unremarkable. Per radiologist, pt may have had a mild transient intracranial hypotension, but in light of pt's resolved status, no other intervention is necessary. Recommended close monitoring of mental status, neuro checks, monitor site of LP for blood or clear fluid (which might be CSF), keeping pt flat, and to consider proning pt to relieve pressure on the puncture site. If CSF leak persists, IR would consider a clot patch. C/w neuro checks Monitor for CSF leak Keep flat F/u CSF studies Visit type - Emergency Visit Emergency Visit: No - New Patient This patient is new to me today: No - Critical Care Critical Care patient: No
[2017-11-16 15:39] LABS: CSF COLOR COLORLESS
[2017-11-16 15:40] LABS: CSF APPEARANCE CLEAR; CSF WBC 1
--- NOTE | 2017-11-16 17:02 | PN ---
Progress Note (short form) - Note Progress Note: seen and examined. chart reviewed in detail. episode in radiology noted. Presently, completely back to baseline. No headache, no back pain, moving extremities freely Constitutional: Yes: Other (febrile, looks fatigued) Eyes: Yes: Conjunctiva Clear HENT: Yes: Atraumatic, Normocephalic Neck: Yes: Supple Cardiovascular: Yes: Tachycardia Respiratory: Yes: Regular, CTA Bilaterally Gastrointestinal: Yes: Soft Musculoskeletal: Yes: WNL Edema: No Neurological: Yes: Alert Labs: Last Vital Signs Temp Pulse Resp BP Pulse Ox 98.3 F 85 20 120/58 99 11/16/17 15:00 11/16/17 15:00 11/16/17 15:00 11/16/17 15:00 11/16/17 09:00 CBC, BMP 11/16/17 10:20 11/16/17 05:30 Current Medications Generic Name Dose Route Start Last Admin Trade Name Freq PRN Reason Stop Dose Admin Atovaquone 750 mg 11/12/17 08:00 11/16/17 17:19 Mepron - PO 750 mg BIDWM [facility] Administration Azithromycin 500 mg 11/16/17 11:15 11/16/17 12:20 Zithromax - PO 500 mg DAILY [facility] Administration Doxycycline Hyclate 100 mg 11/16/17 18:00 11/16/17 17:18 Vibramycin - PO 100 mg BID@1000,1800 [facility] Administration Sodium Chloride 1,000 mls @ 75 mls/hr 11/11/17 23:37 11/16/17 15:15 Normal Saline - IV 75 mls/hr ASDIR [facility] Administration Babesiosis Transaminitis MAHA overall LFT/LDH improving /no further fevers s/p LP today Hgb drop-- ?iatrogenic ,?inflammatory state (high ESR), would consider with imp in platelets, LDH, Bili that the hemolysis is controlled. abx per ID
[2017-11-16] MEDS: DOXYCYCLINE HYCLATE 100 MG CAPSULE PO SCH (17:18)
[2017-11-16 23:51] LABS: GLUCOSE,CSF 65 mg/dL (50-80)
[2017-11-16] MEDS ORDERED: MORPHINE SULFATE 2 MG/ML VIAL IM ONE (23:51)
[2017-11-17] MEDS ORDERED: MORPHINE SULFATE 2 MG/ML VIAL IVPUSH ONE (00:11)
[2017-11-17] MEDS: SODIUM CHLORIDE 1,000 ML IV SCH ×2 (05:36→18:43)
[2017-11-17 07:15] LABS: BASO % 1.3 % (0-2.0); EOS % 1.3 % (0-4.5); HEMATOCRIT 28.4 % (35.4-49); LYMPH % 35.5 % (8-40); MCH 30.1 pg (25.7-33.7); MEAN PLT VOLUME 10.2 fl (7.5-11.1); MONO % 13.6 % (3.8-10.2); NEUT % 48.3 % (42.8-82.8); PLATELET COUNT 108 K/MM3 (134-434); RBC 3.31 M/mm3 (4.00-5.60); RDW 14.1 % (11.9-15.9); WHITE BLOOD COUNT 5.1 K/mm3 (4.0-10.0)
[2017-11-17 07:27] LABS: INR 1.27 (0.82-1.09); PROTHROMBIN TIME (PATIENT) 14.3 SEC (9.7-13.0)
[2017-11-17 07:31] LABS: CHLORIDE 102 mmol/L (98-107); POTASSIUM 4.4 mmol/L (3.5-5.1); SODIUM 137 mmol/L (136-145)
[2017-11-17 07:44] LABS: ALBUMIN 2.7 g/dl (3.4-5.0); ALK PHOS 122 U/L (45-117); ANION GAP 8 (8-16); BILIRUBIN,DIRECT 0.4 mg/dL (0.0-0.2); BILIRUBIN,TOTAL 0.8 mg/dL (0.2-1.0); BLOOD UREA NITROGEN 9 mg/dL (7-18); CO2 27 mmol/L (21-32); CREATININE 0.4 mg/dL (0.7-1.3); GLUCOSE,RANDOM 92 mg/dL (74-106); SGOT/AST 100 U/L (15-37); SGPT/ALT 184 U/L (12-78); TOT PROT 6.6 g/dl (6.4-8.2)
[2017-11-17] MEDS: AZITHROMYCIN 250 MG TABLET PO SCH (09:12)
[2017-11-17] MEDS: DOXYCYCLINE HYCLATE 100 MG CAPSULE PO SCH ×2 (09:12→17:54)
[2017-11-17] MEDS ORDERED: PT OWN MED DRAWER 7, Y5N ONE (09:15)
[2017-11-17] MEDS: ATOVAQUONE 750 MG/5 ML SUSPENSION PO SCH ×4 (09:17→17:53)
--- NOTE | 2017-11-17 10:42 | PN ---
Progress Note (short form) - Note Progress Note: Neurology CHIEF COMPLAINT: Fevers and Headache HISTORY OF PRESENT ILLNESS: 32 y/o M with no PMH (has no medical follow up) presented to ER for 5 day history of nausea, vomiting (non-bloody), headache, subjective fevers, generalized weakness. Reportedly with holocephalic headache, denied neck stiffness initially, with photophobia. He has been vomiting 2-3 times per day. He tried taking advil and tylenol over this time with no relief. Pt came from [place] 14 years ago. Works as [employer]. Lives at home with and his 1 child ([address] y[address]o). [address] head completed and without acute changes. ID following and concern for Babeisiosis. Spoke with hospitalist and they discussed possible Lyme meningitis and asked for LP. LP attempted at bedside, unsuccessful, LP under fluoro completed last night. Reviewed, 1 wbc in CSF, normal glucose, did not see protein level. Patient doing better this AM though did have some AMS last night and CT head without acute changes, reviewed. Discussed with primary team. Active Medications Atovaquone (Mepron -) 750 mg PO BIDWM [facility] Last Admin: 11/17/17 09:28 Dose: Not Given Azithromycin (Zithromax -) 500 mg PO DAILY [facility] Last Admin: 11/17/17 09:12 Dose: 500 mg Doxycycline Hyclate (Vibramycin -) 100 mg PO BID@1000,1800 [facility] Last Admin: 11/17/17 09:12 Dose: 100 mg Sodium Chloride (Normal Saline -) 1,000 mls @ 75 mls/hr IV ASDIR [facility] Last Admin: 11/17/17 05:36 Dose: 75 mls/hr PHYSICAL EXAMINATION Vital Signs Period Temp Pulse Resp BP Sys/Shah Pulse Ox Last 24 Hr 98.1 F-99.2 F 79-87 18-20 107-123/58-66 98 GENERAL: Awake, alert, and fully oriented, in no acute distress. Warm to touch. HEAD: Normal with no signs of trauma. EYES: Pupils equal, round and reactive to light, extraocular movements intact, scleral icterus EARS, NOSE, THROAT: Ears normal, nares patent, oropharynx clear without exudates. NECK: Normal range of motion, supple without lymphadenopathy, or masses. LUNGS: Decreased breath sounds at bases otherwise CTA HEART: Regular rate and rhythm, normal S1 and S2 without murmur, rub or gallop. ABDOMEN: Mild suprapubic pain. No hepatosplenomegaly. Normoactive BS. MUSCULOSKELETAL: Normal range of motion at all joints. No CVA tenderness. LOWER EXTREMITIES: 2+ pulses, warm, well-perfused. No peripheral edema. NEUROLOGICAL: Cranial nerves II-XII grossly intact. Normal speech. Moves all extremities equally, sensory intact, Gait not observed. PSYCHIATRIC: Cooperative. Good eye contact. Appropriate mood and affect. SKIN: Warm, dry, no rash. CBCD WBC 5.1 K/mm3 (4.0-10.0) 11/17/17 06:00 RBC 3.31 M/mm3 (4.00-5.60) L 11/17/17 06:00 Hgb 10.0 GM/dL (11.7-16.9) L 11/17/17 06:00 Hct 28.4 % (35.4-49) L 11/17/17 06:00 MCV 86.0 fl (80-96) 11/17/17 06:00 MCHC 35.0 g/dl (32.0-35.9) 11/17/17 06:00 RDW 14.1 % (11.9-15.9) 11/17/17 06:00 Plt Count 108 K/MM3 (134-434) L D 11/17/17 06:00 MPV 10.2 fl (7.5-11.1) 11/17/17 06:00 CMP Sodium 137 mmol/L (136-145) 11/17/17 06:10 Potassium 4.4 mmol/L (3.5-5.1) 11/17/17 06:10 Chloride 102 mmol/L (98-107) 11/17/17 06:10 Carbon Dioxide 27 mmol/L (21-32) 11/17/17 06:10 Anion Gap 8 (8-16) 11/17/17 06:10 BUN 9 mg/dL (7-18) 11/17/17 06:10 Creatinine 0.4 mg/dL (0.7-1.3) L 11/17/17 06:10 Creat Clearance w eGFR > 60 (>60) 11/17/17 06:10 Calcium 8.0 mg/dL (8.5-10.1) L 11/17/17 06:10 Total Bilirubin 0.8 mg/dL (0.2-1.0) 11/17/17 06:10 AST 100 U/L (15-37) H D 11/17/17 06:10 ALT 184 U/L (12-78) H 11/17/17 06:10 Alkaline Phosphatase 122 U/L (45-117) H 11/17/17 06:10 Total Protein 6.6 g/dl (6.4-8.2) 11/17/17 06:10 Albumin 2.7 g/dl (3.4-5.0) L 11/17/17 06:10 Imaging: CXR: No acute patholgy Head CT: negative Abd/Pelvis CT: Bibasilar atelectasis; Borderline splenomegaly; Bladder distension; No acute pathology ASSESSMENT/PLAN: 32 y/o M with no PMH (has no medical follow up) presented to ER for 5 day history of nausea, vomiting (non-bloody), headache, subjective fevers, generalized weakness. Reportedly with holocephalic headache, denied neck stiffness initially, with photophobia. He has been vomiting 2-3 times per day. He tried taking advil and tylenol over this time with no relief. Pt came from [place] 14 years ago. Works as [employer]. Lives at home with and his 1 child ([address] head completed and without acute changes. ID following and concern for Babeisiosis. LP completed with fluro. CSF studies reviewed, 1 wbc, normal glucose. Doing well and no focal deficits. Tylenol for headaches, with low platelets, would avoid Ibuprofen, naprosyn, etc. Continue ID followup. Monitor labs, continue IV/PO hydration.
--- NOTE | 2017-11-17 10:43 | PN ---
Progress Note (short form) - Note Progress Note: Patient seen and examined Complains of frontal headache No cardipulmonary, GI, complaints Last Vital Signs Temp Pulse Resp BP Pulse Ox 98.3 F 87 18 115/65 98 11/17/17 09:28 11/17/17 09:28 11/17/17 09:28 11/17/17 09:28 11/16/17 20:27 HEENT: JULIAN, EOM Intact Oropharynx: No thrush, No mucositis,coated tongue Neck: Supple Cor: RSR, No murmurs, No gallops Lungs: Clear to P&A Abd: Soft, Normal bowel sounds, No organomegaly Ext:No significant edema Skin: No rashes, Integument intact CBC, BMP 11/17/17 06:00 11/17/17 06:10 Current Medications Generic Name Dose Route Start Last Admin Trade Name Freq PRN Reason Stop Dose Admin Atovaquone 750 mg 11/12/17 08:00 11/17/17 09:28 Mepron - PO Not Given BIDWM REX Azithromycin 500 mg 11/16/17 11:15 11/17/17 09:12 Zithromax - PO 500 mg DAILY REX Administration Doxycycline Hyclate 100 mg 11/16/17 18:00 11/17/17 09:12 Vibramycin - PO 100 mg BID@1000,1800 REX Administration Sodium Chloride 1,000 mls @ 75 mls/hr 11/11/17 23:37 11/17/17 05:36 Normal Saline - IV 75 mls/hr ASDIR REX Administration Impression: Babesiosis Hemolysis- Hct stable, low reticulocyte count- no obvious evidence of hemolysis Thrombocytopenia- improving Abnormal LFT's- trending downward Elevated ferritin- likely reactive- to monitor Further plans per ID recommendations.
--- NOTE | 2017-11-17 12:04 | PN ---
Progress Note (short form) - Note Progress Note: s/p lp still with frontal headaches Vital Signs Period Temp Pulse Resp BP Sys/Shah Pulse Ox Last 24 Hr 98.1 F-99.2 F 79-87 18-20 107-123/58-66 98 cor-rrr lungs decreased bs at bases abd soft,nt ext no edema blood smear- negative CBC, BMP 11/17/17 06:00 11/17/17 06:10 Microbiology 11/17/17 06:45 Blood - Peripheral Venous Blood Parasites Smear - Final 11/11/17 06:15 Blood - Peripheral Venous Blood Parasites Smear - Preliminary Babesia Species 11/16/17 14:05 Cerebral Spinal Fluid - Lumbar Puncture Gram Stain - Final csf 1 wbc a/p Babesiosis- day #6 zithromax/atovaquone- would complete 10 days, can reduce zithromax to 250 daily for duration of treatment continue doxycycline #7, would complete 21 days platelet recovering hgb stable ?persistent headaches- ?post LP would observe neurology f/u
[2017-11-17] MEDS ORDERED: ACETAMINOPHEN/CAFFEINE/BUTALBITAL 1 TAB PO ONE (12:18)
--- NOTE | 2017-11-17 13:42 | PN ---
GI Progress Note Subjective: States feeling well aside from headache No acute events - Objective Vital Signs: Vital Signs Temperature 98.3 F 11/17/17 09:28 Pulse Rate 87 11/17/17 09:28 Respiratory Rate 18 11/17/17 09:28 Blood Pressure 115/65 11/17/17 09:28 O2 Sat by Pulse Oximetry (%) 98 11/16/17 20:27 Constitutional: Calm Eyes: No: Sclera Icterus Cardiovascular: Yes: Regular Rate and Rhythm Respiratory: No: CTA Bilaterally Gastrointestinal Inspection: No: Distention ...Auscultate: Yes: Normoactive Bowel Sounds ...Palpate: No: Hepatomegaly, Splenomegaly, Tenderness ...Percussion: No: Tympanitic Edema: No (No LE edema) Neurological: Yes: Alert Labs: CBC, BMP 11/17/17 06:00 11/17/17 06:10 INR, PTT INR 1.27 (0.82-1.09) H 11/17/17 06:10 Hepatic Panel Total Bilirubin 0.8 mg/dL (0.2-1.0) 11/17/17 06:10 Direct Bilirubin 0.4 mg/dL (0.0-0.2) H 11/17/17 06:10 AST 100 U/L (15-37) H D 11/17/17 06:10 ALT 184 U/L (12-78) H 11/17/17 06:10 Alkaline Phosphatase 122 U/L (45-117) H 11/17/17 06:10 Albumin 2.7 g/dl (3.4-5.0) L 11/17/17 06:10 Laboratory Tests 11/15/17 11/16/17 11/17/17 05:30 05:30 06:10 Ferritin AST 171 H D 133 H D 100 H D ALT 216 H 198 H 184 H Alkaline Phosphatase 139 H 124 H 122 H 11/17/17 06:10 Ferritin 4100.1 H AST ALT Alkaline Phosphatase Problem List - Problems (1) Elevated LFTs Assessment/Plan: LFTs improving. Suspect secondary to babesia infection Ferritin elevated however difficult to interpret in this clinical setting. Repeat when acute issues have fully resolved Avoid hepatotoxic agents Code(s): R94.5 - ABNORMAL RESULTS OF LIVER FUNCTION STUDIES
--- NOTE | 2017-11-17 15:50 | PN ---
Physical Exam: SUBJECTIVE: Patient seen and examined at bedside. Pt felt well this morning, but had another headache this afternoon. OBJECTIVE: Vital Signs Period Temp Pulse Resp BP Sys/Shah Pulse Ox Last 24 Hr 98.3 F-99.2 F 79-87 18-20 107-119/51-66 98 Unremarkable exam Gen: NAD HEENT: Moist membranes, NCAT, PERRL, EOMI Neck: mild nuchal discomfort. no jvd Cardio: rrr, norm s1s2, no m/r/g Lungs: CTA b/l Abd: soft, nontender, norm bs, no guarding ext: 2+ pulses, no edema Neuro: sensation intact throughout. Strength intact throughout. 2+ reflexes throughout Laboratory Results - last 24 hr 11/11/17 11/16/17 11/16/17 06:15 05:30 14:05 WBC RBC Hgb Hct MCV MCH MCHC RDW Plt Count MPV Absolute Neuts (auto) Neutrophils % Lymphocytes % Monocytes % Eosinophils % Basophils % Nucleated RBC % Haptoglobin < 10 L PT with INR INR Sodium Potassium Chloride Carbon Dioxide Anion Gap BUN Creatinine Creat Clearance w eGFR Random Glucose Calcium Ferritin Total Bilirubin Direct Bilirubin AST ALT Alkaline Phosphatase Total Protein Albumin CSF Glucose 65 CSF Total Protein Babesia microti IgG Ab 1:320 H Babesia microti IgM Ab 1:320 H 11/16/17 11/17/17 11/17/17 14:05 06:00 06:10 WBC 5.1 RBC 3.31 L Hgb 10.0 L Hct 28.4 L MCV 86.0 MCH 30.1 MCHC 35.0 RDW 14.1 Plt Count 108 L D MPV 10.2 Absolute Neuts (auto) 2.4 Neutrophils % 48.3 Lymphocytes % 35.5 D Monocytes % 13.6 H Eosinophils % 1.3 D Basophils % 1.3 Nucleated RBC % 0 Haptoglobin PT with INR 14.30 H INR 1.27 H Sodium Potassium Chloride Carbon Dioxide Anion Gap BUN Creatinine Creat Clearance w eGFR Random Glucose Calcium Ferritin Total Bilirubin Direct Bilirubin AST ALT Alkaline Phosphatase Total Protein Albumin CSF Glucose 65 CSF Total Protein Babesia microti IgG Ab Babesia microti IgM Ab 11/17/17 11/17/17 06:10 06:10 WBC RBC Hgb Hct MCV MCH MCHC RDW Plt Count MPV Absolute Neuts (auto) Neutrophils % Lymphocytes % Monocytes % Eosinophils % Basophils % Nucleated RBC % Haptoglobin PT with INR INR Sodium 137 Potassium 4.4 Chloride 102 Carbon Dioxide 27 Anion Gap 8 BUN 9 Creatinine 0.4 L Creat Clearance w eGFR > 60 Random Glucose 92 Calcium 8.0 L Ferritin 4100.1 H Total Bilirubin 0.8 Direct Bilirubin 0.4 H AST 100 H D ALT 184 H Alkaline Phosphatase 122 H Total Protein 6.6 Albumin 2.7 L CSF Glucose CSF Total Protein Babesia microti IgG Ab Babesia microti IgM Ab Active Medications Generic Name Dose Route Start Last Admin Trade Name [place] PRN Reason Stop Dose Admin Atovaquone 750 mg 11/12/17 08:00 11/17/17 09:28 Mepron - PO Not Given BIDWM REX Azithromycin 500 mg 11/16/17 11:15 11/17/17 09:12 Zithromax - PO 500 mg DAILY REX Administration Doxycycline Hyclate 100 mg 11/16/17 18:00 11/17/17 09:12 Vibramycin - PO 100 mg BID@1000,1800 REX Administration Sodium Chloride 1,000 mls @ 75 mls/hr 11/11/17 23:37 11/17/17 05:36 Normal Saline - IV 75 mls/hr ASDIR REX Administration ASSESSMENT/PLAN: 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 Pt was found to have sepsis 2/2 babesiosis. #Sepsis 2/2 Babesiosis -recurrent fevers -headache -ID on board -Heme on board -monitor blood parasite smear -Chest CT sig for hepatosplenomegally -Azithro -Atovaquone -Doxy - empiric coverage of Lyme, Anaplasmosis -serology pending #r/o Meningitis -Pt had headache and vague posterior neck discomfort on [id number] -Neurology consulted for LP -LP done in IR -Pending results #? Hemolysis -Hb stable -LD elevated but stabilizing -T bili & d bili elevated -Increased retic count -elevated Ferritin. ? significance. acute phase reactant #Transaminitis -likely 2/2 babesiosis -GI consult: rec monitoring LFTs while pt on hepatotoxic agents -US revealed borderline hepatomegally and splenomegally with small amount of perisplenic fluid #Thrombocytopenia -2/2 babesiosis -Heme on board -Avoid NSAIDs please -Platelets were given prior to LP #FEN -NS -hyponatremia -Regular diet #PPx -SCDs #Dispo -Admitted to [facility] for babesiosis Jaron Craig MD PGY-1 Visit type - Emergency Visit Emergency Visit: No - New Patient This patient is new to me today: No - Critical Care Critical Care patient: No - Discharge Referral Referred to [facility] No
--- NOTE | 2017-11-17 17:18 | PN ---
Teaching Attending Note Name of Resident: Jaron Craig ATTENDING PHYSICIAN STATEMENT I saw and evaluated the patient. I reviewed the resident's note and discussed the case with the resident. I agree with the resident's findings and plan as documented with exceptions below. SUBJECTIVE: Patient seen and examined. headache when seen, some dizziness. No fevers/ chills. no abdominal pain, tolerating diet well. OBJECTIVE: Vital Signs Period Temp Pulse Resp BP Sys/Shah Pulse Ox Last 24 Hr 98.1 F-99.2 F 79-89 18-20 107-119/51-66 98 Intake & Output 11/14/17 11/15/17 11/16/17 11/17/17 23:59 23:59 23:59 23:59 Intake Total 1980 1810 1830 2250 Output Total 941 399 2878 Balance 1580 8663 689 9060 Weight 134 lb General: lying in bed in no acute distress Chest: CTAB, no rales or wheezing Abdomen:sof,t NT, ND Extremities: no edema Musculoskeletal: no leak or spinal tenderness, SLR neg bilateral LE, LE power 5/ 5 Home Medications Medication Instructions Recorded NK [No Known Home Medication] 04/26/16 Active Medications Atovaquone (Mepron -) 750 mg PO BIDWM [facility] Last Admin: 11/17/17 09:28 Dose: Not Given Azithromycin (Zithromax -) 500 mg PO DAILY [facility] Last Admin: 11/17/17 09:12 Dose: 500 mg Doxycycline Hyclate (Vibramycin -) 100 mg PO BID@1000,1800 [facility] Last Admin: 11/17/17 09:12 Dose: 100 mg Sodium Chloride (Normal Saline -) 1,000 mls @ 75 mls/hr IV ASDIR [facility] Last Admin: 11/17/17 05:36 Dose: 75 mls/hr Laboratory Results - last 24 hr 11/11/17 11/16/17 11/16/17 06:15 05:30 14:05 WBC RBC Hgb Hct MCV MCH MCHC RDW Plt Count MPV Absolute Neuts (auto) Neutrophils % Lymphocytes % Monocytes % Eosinophils % Basophils % Nucleated RBC % Haptoglobin < 10 L PT with INR INR Sodium Potassium Chloride Carbon Dioxide Anion Gap BUN Creatinine Creat Clearance w eGFR Random Glucose Calcium Ferritin Total Bilirubin Direct Bilirubin AST ALT Alkaline Phosphatase Total Protein Albumin CSF Glucose 65 CSF Total Protein Babesia microti IgG Ab 1:320 H Babesia microti IgM Ab 1:320 H 11/17/17 11/17/17 11/17/17 06:00 06:10 06:10 WBC 5.1 RBC 3.31 L Hgb 10.0 L Hct 28.4 L MCV 86.0 MCH 30.1 MCHC 35.0 RDW 14.1 Plt Count 108 L D MPV 10.2 Absolute Neuts (auto) 2.4 Neutrophils % 48.3 Lymphocytes % 35.5 D Monocytes % 13.6 H Eosinophils % 1.3 D Basophils % 1.3 Nucleated RBC % 0 Haptoglobin PT with INR 14.30 H INR 1.27 H Sodium 137 Potassium 4.4 Chloride 102 Carbon Dioxide 27 Anion Gap 8 BUN 9 Creatinine 0.4 L Creat Clearance w eGFR > 60 Random Glucose 92 Calcium 8.0 L Ferritin Total Bilirubin 0.8 Direct Bilirubin 0.4 H AST 100 H D ALT 184 H Alkaline Phosphatase 122 H Total Protein 6.6 Albumin 2.7 L CSF Glucose CSF Total Protein Babesia microti IgG Ab Babesia microti IgM Ab 11/17/17 06:10 WBC RBC Hgb Hct MCV MCH MCHC RDW Plt Count MPV Absolute Neuts (auto) Neutrophils % Lymphocytes % Monocytes % Eosinophils % Basophils % Nucleated RBC % Haptoglobin PT with INR INR Sodium Potassium Chloride Carbon Dioxide Anion Gap BUN Creatinine Creat Clearance w eGFR Random Glucose Calcium Ferritin 4100.1 H Total Bilirubin Direct Bilirubin AST ALT Alkaline Phosphatase Total Protein Albumin CSF Glucose CSF Total Protein Babesia microti IgG Ab Babesia microti IgM Ab Microbiology 11/16/17 14:05 Cerebral Spinal Fluid - Lumbar Puncture Gram Stain - Final 11/16/17 14:05 Cerebral Spinal Fluid - Lumbar Puncture CSF Culture - Preliminary 11/17/17 06:45 Blood - Peripheral Venous Blood Parasites Smear - Final 11/11/17 06:15 Blood - Peripheral Venous Blood Parasites Smear - Preliminary Babesia Species 11/14/17 20:45 Blood - Peripheral Venous Blood Parasites Smear - Final Babesia Species 11/10/17 09:48 Blood - Peripheral Venous Blood Culture - Final NO GROWTH AFTER 5 DAYS INCUBATION 11/10/17 09:30 Blood - Peripheral Venous Blood Culture - Final NO GROWTH AFTER 5 DAYS INCUBATION 11/13/17 12:04 Blood - Peripheral Venous Blood Parasites Smear - Final Babesia Species 11/12/17 06:00 Blood - Peripheral Venous Blood Parasites Smear - Final Babesia Species 11/10/17 09:30 Urine - Urine Clean Catch Urine Culture - Final NO GROWTH OBTAINED 11/10/17 09:46 Nasopharyngeal Swab Influenza Types A,B Antigen - Final 11/10/17 09:46 Nasopharyngeal Swab - Final ASSESSMENT AND PLAN: 32yo M with babesiosis, abnormal LFts and persistent fevers. -Sepsis due to babesiosis -Bandemia, resolved -Headache, recurrent, ?Post LP -Abnormal LFTs, rising, ?Babesiosis, vs coinfection with tick borne illness vs medication induced, improving. -Splenomegaly with ?surrounding fluid, stable H/h. ?From babesiosis, also positive EBV PCR -Anemia/thrombocytopenia Plan: LP studies noted, neg. CSF studies sent, but won't pipe changer. ?post LPheadache, no leak noted, Improved with 1 dose of fioricet. However, Fevers resolved, parasitemia clearing, LFTs improved. ID input noted, continue atovaquone/azithromycin/doxycycline day 6. EBV/CMV PCR positive, ?significance, likely old infection as discussed with ID. Follow up Lyme serology. Abdominal US noted. CT chest noted, hepatosplenomegaly. Hematology input noted. GI input noted. Hold Tylenol or NSAIDs, morphine prn for pain for now. Hep panel noted. DVTPPx with SCDs given thrombocytopenia. Dispo planning in 24 hours if continues to improve. Plan discussed with patient in detail, all questions answered.
[2017-11-17] MEDS ORDERED: ACETAMINOPHEN 500 MG TABLET (FP) PO ONE (21:15)
[2017-11-18 00:12] LABS: E. chaffeensis Negative (Negative)
[2017-11-18] MEDS: SODIUM CHLORIDE 1,000 ML IV SCH (05:35)
[2017-11-18 07:33] LABS: BASO % 0.9 % (0-2.0); EOS % 1.2 % (0-4.5); HEMATOCRIT 28.6 % (35.4-49); LYMPH % 34.3 % (8-40); MCH 30.5 pg (25.7-33.7); MEAN PLT VOLUME 10.2 fl (7.5-11.1); MONO % 11.1 % (3.8-10.2); NEUT % 52.5 % (42.8-82.8); PLATELET COUNT 172 K/MM3 (134-434); RBC 3.28 M/mm3 (4.00-5.60); RDW 14.2 % (11.9-15.9); WHITE BLOOD COUNT 6.4 K/mm3 (4.0-10.0)
[2017-11-18] MEDS: ATOVAQUONE 750 MG/5 ML SUSPENSION PO SCH ×2 (07:52→17:33)
[2017-11-18 08:10] LABS: CHLORIDE 104 mmol/L (98-107); POTASSIUM 4.3 mmol/L (3.5-5.1); SODIUM 139 mmol/L (136-145)
[2017-11-18] MEDS ORDERED: AZITHROMYCIN 250 MG TABLET PO SCH (08:15)
[2017-11-18 08:17] LABS: ALBUMIN 2.8 g/dl (3.4-5.0); ALK PHOS 125 U/L (45-117); ANION GAP 8 (8-16); BILIRUBIN,DIRECT 0.4 mg/dL (0.0-0.2); BILIRUBIN,TOTAL 0.7 mg/dL (0.2-1.0); BLOOD UREA NITROGEN 10 mg/dL (7-18); CALCIUM 8.1 mg/dL (8.5-10.1); CO2 27 mmol/L (21-32); CREATININE 0.5 mg/dL (0.7-1.3); GLUCOSE,RANDOM 81 mg/dL (74-106); SGOT/AST 77 U/L (15-37); SGPT/ALT 180 U/L (12-78); TOT PROT 6.8 g/dl (6.4-8.2)
[2017-11-18] MEDS: DOXYCYCLINE HYCLATE 100 MG CAPSULE PO SCH ×2 (10:07→17:34)
--- NOTE | 2017-11-18 11:13 | PN ---
Physical Exam: SUBJECTIVE: Patient seen and examined, markedly improved, headache resolved, pleasant and eager to go home today. OBJECTIVE: Vital Signs Period Temp Pulse Resp BP Sys/Shah Pulse Ox Last 24 Hr 98.1 F-98.4 F 62-98 18-20 97-122/51-64 98 GENERAL: lying in bed in no acute distress Neck: soft, supple Chest: CTAB, no rales or wheezing abdomen:soft, NT, ND Extremities: no edema Neuro AAOx3, facial symmetry, neck supple, moves all extremities Laboratory Results - last 24 hr 11/14/17 11/15/17 11/16/17 05:30 05:30 05:30 WBC RBC Hgb Hct MCV MCH MCHC RDW Plt Count MPV Absolute Neuts (auto) Neutrophils % Lymphocytes % Monocytes % Eosinophils % Basophils % Nucleated RBC % Haptoglobin < 10 L Sodium Potassium Chloride Carbon Dioxide Anion Gap BUN Creatinine Creat Clearance w eGFR Random Glucose Calcium Total Bilirubin Direct Bilirubin AST ALT Alkaline Phosphatase Total Protein Albumin A. phagocytophilum DNA Negative E.chaffeensis DNA (PCR) Negative 11/18/17 11/18/17 06:00 06:00 WBC 6.4 RBC 3.28 L Hgb 10.0 L Hct 28.6 L MCV 87.0 MCH 30.5 MCHC 35.0 RDW 14.2 Plt Count 172 D MPV 10.2 Absolute Neuts (auto) 3.4 Neutrophils % 52.5 Lymphocytes % 34.3 Monocytes % 11.1 H Eosinophils % 1.2 Basophils % 0.9 Nucleated RBC % 0 Haptoglobin Sodium 139 Potassium 4.3 Chloride 104 Carbon Dioxide 27 Anion Gap 8 BUN 10 Creatinine 0.5 L Creat Clearance w eGFR > 60 Random Glucose 81 Calcium 8.1 L Total Bilirubin 0.7 Direct Bilirubin 0.4 H AST 77 H D ALT 180 H Alkaline Phosphatase 125 H Total Protein 6.8 Albumin 2.8 L A. phagocytophilum DNA E.chaffeensis DNA (PCR) Active Medications Generic Name Dose Route Start Last Admin Trade Name Freq PRN Reason Stop Dose Admin Atovaquone 750 mg 11/12/17 08:00 11/18/17 07:52 Mepron - PO 750 mg BIDWM REX Administration Azithromycin 250 mg 11/18/17 08:15 11/18/17 10:07 Zithromax - PO 250 mg DAILY REX Administration Doxycycline Hyclate 100 mg 11/16/17 18:00 11/18/17 10:07 Vibramycin - PO 100 mg BID@1000,1800 REX Administration Sodium Chloride 1,000 mls @ 75 mls/hr 11/11/17 23:37 11/18/17 05:35 Normal Saline - IV 75 mls/hr ASDIR REX Administration ASSESSMENT/PLAN: 32yo M with babesiosis, abnormal LFts and persistent fevers. -Sepsis due to babesiosis -Bandemia, resolved -Headache, recurrent, ?Post LP -Abnormal LFTs, rising, ?Babesiosis, vs coinfection with tick borne illness vs medication induced, improving. -Splenomegaly with ?surrounding fluid, stable H/h. ?From babesiosis, also positive EBV PCR -Anemia/thrombocytopenia Plan: Markedly improved. LFTs trending down, afebrile, parasitemia clearing. Counts improved. LP initial studies neg for meningitis Lyme studies sent, pending, but would not roving changer at this point. Antibiotics per ID. Discussed with patient about need for follow up with medical clinical, infectious disease, to call on Monday to arrange follow up. Also LFTs in 1 week. Advised to avoid contact sports, tanning or direct sun exposure. D/c home today after arrangements made. Plan discussed with patient in detail, all questions answered. Visit type - Emergency Visit Emergency Visit: No - New Patient This patient is new to me today: No - Critical Care Critical Care patient: No - Discharge Referral Referred to [facility] No
--- NOTE | 2017-11-18 12:49 | PN ---
Progress Note (short form) - Note Progress Note: Neurology CHIEF COMPLAINT: Fevers and Headache HISTORY OF PRESENT ILLNESS: 32 y/o M with no PMH (has no medical follow up) presented to ER for 5 day history of nausea, vomiting (non-bloody), headache, subjective fevers, generalized weakness. Reportedly with holocephalic headache, denied neck stiffness initially, with photophobia. He has been vomiting 2-3 times per day. He tried taking advil and tylenol over this time with no relief. Pt came from [place] 14 years ago. Works as [employer]. Lives at home with and his 1 child ([address] y[address]o). [address] head completed and without acute changes. ID following and concern for Babeisiosis. Spoke with hospitalist and they discussed possible Lyme meningitis and asked for LP. LP attempted at bedside, unsuccessful, LP under fluoro completed and CSF Reviewed, 1 wbc in CSF, normal glucose, did not see protein level. Patient doing better this AM though did have some AMS after LP and CT head without acute changes, reviewed. Would like to go home. Primary team and ID following. Well appearing and does look to be toxic. Remains on Mepron and Azithro with Doxy. Active Medications Atovaquone (Mepron -) 750 mg PO BIDWM [facility] Last Admin: 11/18/17 07:52 Dose: 750 mg Azithromycin (Zithromax -) 250 mg PO DAILY [facility] Last Admin: 11/18/17 10:07 Dose: 250 mg Doxycycline Hyclate (Vibramycin -) 100 mg PO BID@1000,1800 [facility] Last Admin: 11/18/17 10:07 Dose: 100 mg Sodium Chloride (Normal Saline -) 1,000 mls @ 75 mls/hr IV ASDIR [facility] Last Admin: 11/18/17 05:35 Dose: 75 mls/hr PHYSICAL EXAMINATION Vital Signs Period Temp Pulse Resp BP Sys/Shah Pulse Ox Last 24 Hr 98.1 F-98.4 F 62-98 18-20 97-122/51-64 98 GENERAL: Awake, alert, and fully oriented, in no acute distress. Warm to touch. HEAD: Normal with no signs of trauma. EYES: Pupils equal, round and reactive to light, extraocular movements intact, scleral icterus EARS, NOSE, THROAT: Ears normal, nares patent, oropharynx clear without exudates. NECK: Normal range of motion, supple without lymphadenopathy, or masses. LUNGS: Decreased breath sounds at bases otherwise CTA HEART: Regular rate and rhythm, normal S1 and S2 without murmur, rub or gallop. ABDOMEN: Mild suprapubic pain. No hepatosplenomegaly. Normoactive BS. MUSCULOSKELETAL: Normal range of motion at all joints. No CVA tenderness. LOWER EXTREMITIES: 2+ pulses, warm, well-perfused. No peripheral edema. NEUROLOGICAL: Cranial nerves II-XII grossly intact. Normal speech. Moves all extremities equally, sensory intact, Gait not observed. PSYCHIATRIC: Cooperative. Good eye contact. Appropriate mood and affect. SKIN: Warm, dry, no rash. CBCD WBC 6.4 K/mm3 (4.0-10.0) 11/18/17 06:00 RBC 3.28 M/mm3 (4.00-5.60) L 11/18/17 06:00 Hgb 10.0 GM/dL (11.7-16.9) L 11/18/17 06:00 Hct 28.6 % (35.4-49) L 11/18/17 06:00 MCV 87.0 fl (80-96) 11/18/17 06:00 MCHC 35.0 g/dl (32.0-35.9) 11/18/17 06:00 RDW 14.2 % (11.9-15.9) 11/18/17 06:00 Plt Count 172 K/MM3 (134-434) D 11/18/17 06:00 MPV 10.2 fl (7.5-11.1) 11/18/17 06:00 CMP Sodium 139 mmol/L (136-145) 11/18/17 06:00 Potassium 4.3 mmol/L (3.5-5.1) 11/18/17 06:00 Chloride 104 mmol/L (98-107) 11/18/17 06:00 Carbon Dioxide 27 mmol/L (21-32) 11/18/17 06:00 Anion Gap 8 (8-16) 11/18/17 06:00 BUN 10 mg/dL (7-18) 11/18/17 06:00 Creatinine 0.5 mg/dL (0.7-1.3) L 11/18/17 06:00 Creat Clearance w eGFR > 60 (>60) 11/18/17 06:00 Calcium 8.1 mg/dL (8.5-10.1) L 11/18/17 06:00 Total Bilirubin 0.7 mg/dL (0.2-1.0) 11/18/17 06:00 AST 77 U/L (15-37) H D 11/18/17 06:00 ALT 180 U/L (12-78) H 11/18/17 06:00 Alkaline Phosphatase 125 U/L (45-117) H 11/18/17 06:00 Total Protein 6.8 g/dl (6.4-8.2) 11/18/17 06:00 Albumin 2.8 g/dl (3.4-5.0) L 11/18/17 06:00 Imaging: CXR: No acute patholgy Head CT: negative Abd/Pelvis CT: Bibasilar atelectasis; Borderline splenomegaly; Bladder distension; No acute pathology ASSESSMENT/PLAN: 32 y/o M with no PMH (has no medical follow up) presented to ER for 5 day history of nausea, vomiting (non-bloody), headache, subjective fevers, generalized weakness. Reportedly with holocephalic headache, denied neck stiffness initially, with photophobia. He has been vomiting 2-3 times per day. He tried taking advil and tylenol over this time with no relief. Pt came from [place] 14 years ago. Works as [employer]. Lives at home with and his 1 child ([address] y[address] head completed and without acute changes. ID following and concern for Babeisiosis. LP completed with fluro. CSF studies reviewed, 1 wbc, normal glucose. Well appearing and does look to be toxic. Remains on Mepron and Azithro with Doxy. Tylenol for headaches, with low platelets, would avoid Ibuprofen, naprosyn, etc. Continue ID followup. Monitor labs, continue IV/PO hydration.
--- NOTE | 2017-11-18 15:58 | PN ---
Progress Note (short form) - Note Progress Note: Patient seen and examined feels well. no complaints Last Vital Signs Temp Pulse Resp BP Pulse Ox 98.1 F 98 H 18 122/64 98 11/18/17 09:36 11/18/17 09:36 11/18/17 09:36 11/18/17 09:36 11/17/17 20:29 Cor: RSR, No murmurs, No gallops Lungs: Clear to P&A Abd: Soft, Normal bowel sounds, No organomegaly Ext:No significant edema Abnormal Lab Results 11/18/17 11/18/17 06:00 06:00 RBC 3.28 L Hgb 10.0 L Hct 28.6 L Monocytes % 11.1 H Creatinine 0.5 L Calcium 8.1 L Direct Bilirubin 0.4 H AST 77 H D ALT 180 H Alkaline Phosphatase 125 H Albumin 2.8 L Active Medications Generic Name Dose Route Start Last Admin Trade Name Freq PRN Reason Stop Dose Admin Atovaquone 750 mg 11/12/17 08:00 11/18/17 07:52 Mepron - PO 750 mg BIDWM REX Administration Azithromycin 250 mg 11/18/17 08:15 11/18/17 10:07 Zithromax - PO 250 mg DAILY REX Administration Doxycycline Hyclate 100 mg 11/16/17 18:00 11/18/17 10:07 Vibramycin - PO 100 mg BID@1000,1800 REX Administration Sodium Chloride 1,000 mls @ 75 mls/hr 11/11/17 23:37 11/18/17 05:35 Normal Saline - IV 75 mls/hr ASDIR REX Administration A/P 32 y/o patient with Babesiosis Transaminitis MAHA overall LFT/LDH improving /no further fevers s/p LP today Hgb drop-- ?iatrogenic ,?inflammatory state (high ESR), would consider with imp in platelets, LDH, Bili that the hemolysis is controlled. abx per ID
[2017-11-18] MEDS ORDERED: PT OWN MED DRAWER 7, Y5N ONE (17:32)
[2017-11-18 18:25] VITALS: BP 137/52; PULSE 97; TEMP 98.6
[2017-11-18] MEDS ORDERED: ACETAMINOPHEN 500 MG TABLET (FP) PO ONE (18:30)
[2017-11-19 06:42] LABS: SERUM IRON SATURATION 38 % (15-55); TOTAL IRON BINDING CAPACITY 246 ug/dL (250-450); UIBC 153 ug/dL (111-343)
--- NOTE | 2017-11-19 17:14 | DS ---
Physical Exam: SUBJECTIVE: Patient seen and examined OBJECTIVE: PHYSICAL EXAM GENERAL: The patient is awake, alert, and fully oriented, in no acute distress. HEAD: Normal with no signs of trauma. EYES: PERRL, extraocular movements intact, sclera anicteric, conjunctiva clear. ENT: Ears normal, nares patent, oropharynx clear without exudates, moist mucous membranes. NECK: Trachea midline, full range of motion, supple. LUNGS: Breath sounds equal, clear to auscultation bilaterally, no wheezes, no crackles, no accessory muscle use. HEART: Regular rate and rhythm, S1, S2 without murmur, rub or gallop. ABDOMEN: Soft, nontender, nondistended, normoactive bowel sounds, no guarding, no rebound, no hepatosplenomegaly, no masses. EXTREMITIES: 2+ pulses, warm, well-perfused, no edema. NEUROLOGICAL: Cranial nerves II through XII grossly intact. Normal speech, gait not observed. PSYCH: Normal mood, normal affect. SKIN: Warm, dry, normal turgor, no rashes or lesions noted. 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 He was placed on atovaquone, azithromycin and doxycycline. Infectious disease was consulted. he also had thrombocytopenia and hepatosplenomegaly likely from tick borne illness. Hematology was consulted. His HIV screen was neg. His ehrlichia, lyme serology are still pending. He also had abnormal LFTs. He had abdominal ultrasound showing mild hepatosplenomegaly with some leda-splenic fluid collection. He had no abdominal pain or symptoms and his LFTs improved with no intervention. He reported headache during later part of his stay, had platelet transfusion with IR guided LP which is negative for meningitis based on initial studies. 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 He is to complete total 10 days of atovaquone, azithromycin and 21 days of doxycycline. Hospital provided him with additional doses of atovaquone, azithromycin and 1 week supply of doxycycline to ensure compliance in the setting of financial constraints. He is currently afebrile for more than 72 days with improved LFts, no abdominal concerns, improved headache and discharged in stable condition. Condition: Stable - Instructions Diet, Activity, Other Instructions: You were in the hospital because of babesiosis. It is a tick-borne illness. You need to be careful when your are in any wooded area. If you go hiking, etc... you should check your body for ticks and remove them immediately. You should follow up with your primary care doctor once you leave the hospital. You should also make appointments to see the specialists that saw you in the hospital. Medical Clinic: Dr. Jaron Craig [address] [place] [address] Please call on Monday to schedule follow up in next week with Dr.Mark Craig. You are advised to follow up with specialists as below: Dr. Reed, hematology Dr. Woods, gastroenterology Dr. Wright, infectious diseases Dr. Moscoso, neurology It is very important that you follow up with doctor in 1 week. Please call medical clinical on Monday to schedule follow up next week. You will need liver blood test (Liver function test) in 1 week. If you notice any new fevers, worsening headache, belly pain, jaundice, or new concerns, call 911 or come to ED. NO CONTACT SPORTS TILL SEEN AND CLEARED BY YOUR DOCTOR INJURY TO YOUR BELLY CAN RESULT IN SPLEEN RUPTURE AND EMERGENCY. Light activity, rest and avoid strenuous activity or exercise till next doctor visit. Antibiotics as follows: You have been provided with antibiotics on discharge. Atovaquone twice daily wit meals preferably fatty meals for 6 more doses Azithromycin 250 mg daily for 3 more doses Doxycycline for 2 more weeks. You are provided with 1 week supply of Doxycycline. You will need additional 1 week of supply which is being sent to [facility] on [address] [place] [address] in [place], [place] (PH: [phone]) Please fill in the prescription and start taking after you have completed 1 week supply you got from here (which should be November 24) to finish a total of 2 weeks. Do not take more than 2 g tylenol in 24 hours, No tanning or direct exposure to light while on doxycycline. If you develop new symptoms, please return to the emergency department. Referrals: Gerry Wiggins MD [Staff Physician] - Won Woods DO [Staff Physician] - 1 Week Albania Wright MD [Staff Physician] - 1 Week Mary Reed MD [Staff Physician] - Disposition: HOME - Home Medications Comprehensive Discharge Medication List: Ambulatory Orders Doxycycline Hyclate 100 mg PO BID #14 capsule 11/18/17 Miscellaneous Medical Supply [Outpatient Order] 1 each ASDIR #1 misc Miscellaneous Medical Supply [Outpatient Order] 1 each ASDIR #1 misc Miscellaneous Medical Supply [Outpatient Order] 1 each ASDIR #1 misc This patient is new to me today: No Emergency Visit: Yes ED Registration Date: 11/10/17 Care time: The patient presented to the Emergency Department on the above date and was hospitalized for further evaluation of their emergent condition. Critical Care patient: No - Discharge Referral Referred to [facility] Med [facility].C.: No
--- NOTE | 2017-11-20 16:53 | PN ---
Progress Note (short form) - Note Progress Note: Was alerted that pharmacy did not receive script for Doxy despite system showing script as transmitted successfully. Called the pharmacy and placed a phone order. Spoke with pt by phone and notified him of the new medication. Also confirmed his appointment at the clinic.
== END 2017-11-18 19:00 | disposition home or self-care (01) | DRG 720 ==
LOC: JER 08:49 → JERBED 13:00 → J7W 15:13 → J4W 11-11 21:59 → J7W 11-16 12:48
PROVIDERS: ADMIT Internal Medicine; ATTEND Hospitalist
PROC: 009U3ZX Drainage of Spinal Canal, Percutaneous Approach, Diagnostic (ICD-10-PCS; principal; 2017-11-16)
PROC: 30233R1 Transfusion of Nonautologous Platelets into Peripheral Vein, Percutaneous Approach (ICD-10-PCS; 2017-11-16)
DX: A41.9 Sepsis, unspecified organism (principal); R50.9 Fever, unspecified; R51 Headache; R11.2 Nausea with vomiting, unspecified; J98.11 Atelectasis; D72.825 Bandemia; R16.1 Splenomegaly, not elsewhere classified; R00.0 Tachycardia, unspecified; R06.82 Tachypnea, not elsewhere classified; R16.0 Hepatomegaly, not elsewhere classified; B60.0 Babesiosis; E87.1 Hypo-osmolality and hyponatremia; D59.4 Other nonautoimmune hemolytic anemias; D69.6 Thrombocytopenia, unspecified; R74.0 Nonspecific elevation of levels of transaminase and lactic acid dehydrogenase [LDH]; D47.3 Essential (hemorrhagic) thrombocythemia
CPT/HCPCS: 36415; 36430; 62272; 70450-TC; 71045-TC-FY; 71250-TC; 74177-TC; 76700-TC; 80048; 80053; 80074; 80076; 80307; 81003; 81015; 82550; 82728; 82784; 82803; 82930; 82945; 83010; 83540; 83550; 83605; 83615; 83735; 84157; 84484; 85025; 85044; 85610; 85651; 85730; 86038; 86140; 86308; 86617; 86618; 86644; 86645; 86664; 86666; 86704; 86706; 86708; 86753; 86788; 86789; 86850; 86900; 86901; 87040; 87070; 87086; 87205; 87207; 87340; 87389; 87476; 87496; 87529; 87799; 87804; 87899; 93005; 93010; 99285-25; J0131; J7030; P9034; P9038

== ENCOUNTER 2023-08-07 12:45 | Emergency (ER) | payer OTHER ==
[2023-08-07 13:02] VITALS: BMI 31.3
[2023-08-07 15:15] LABS: PH,URINE 5.5 (5.0-8.0); URINE APPEARANCE CLEAR; URINE BILIRUBIN NEGATIVE (NEGATIVE); URINE COLOR YELLOW; URINE GLUCOSE (UA) NEGATIVE (NEGATIVE); URINE KETONE NEGATIVE (NEGATIVE); URINE LEUK ESTERASE NEGATIVE (NEGATIVE); URINE NITRITE NEGATIVE (NEGATIVE); URINE PROTEIN NEGATIVE (NEGATIVE); URINE UROBILINOGEN 0.2 mg/dL (0.2-1.0)
[2023-08-07 15:17] LABS: BASO % 0.7 % (0-2.0); HEMATOCRIT 43.4 % (35.4-49); HEMOGLOBIN 14.7 GM/dL (11.7-16.9); LYMPH % 37.4 % (8-40); MCH 30.5 pg (25.7-33.7); MCHC 33.9 g/dl (32.0-35.9); MEAN CELL VOLUME 89.9 fl (80-96); MEAN PLT VOLUME 10.9 fl (7.5-11.1); MONO % 7.7 % (3.8-10.2); NEUT % 50.2 % (42.8-82.8); PLATELET COUNT 185 10^3/uL (134-434); RBC 4.83 M/mm3 (4.00-5.60); RDW 14.1 % (11.9-15.9); WHITE BLOOD COUNT 6.3 K/mm3 (4.0-10.0)
[2023-08-07 15:41] LABS: POTASSIUM 4.8 mmol/L (3.5-5.1)
[2023-08-07 15:45] LABS: ALBUMIN 3.9 g/dl (3.4-5.0); BLOOD UREA NITROGEN 13.4 mg/dL (7-18)
[2023-08-07 15:48] LABS: CREATININE 0.6 mg/dL (0.55-1.3)
[2023-08-07 15:49] LABS: BILIRUBIN,TOTAL 0.4 mg/dL (0.2-1); TOT PROT 7.6 g/dl (6.4-8.2)
[2023-08-07 17:10] VITALS: BP 125/91; PULSE 69; RESP 20; TEMP 98.1
== END 2023-08-07 17:12 | disposition home or self-care (01) ==
LOC: JER 12:45
DX: R20.2 Paresthesia of skin (principal); R51.9 Headache, unspecified; R07.81 Pleurodynia; R20.0 Anesthesia of skin; Z20.822 Contact with and (suspected) exposure to COVID-19
CPT/HCPCS: 0241U-QW; 36415; 71046-TC-FY; 80053; 81003; 84439; 84443; 84484; 85025; 87086; 93005; 93010; 99285-25